=== PATIENT | female | born 1960 | race Hispanic/Latino ===

== ENCOUNTER 2017-08-04 21:02 | Emergency (ER) | payer OTHER ==
--- OUTSIDE RECORDS SUMMARY | 2017-08-04 21:04 | XMS REPORT ---
:1960 Author Organization [employer] Care Team Providers Name Role Phone Rangel, Na Provider Role Unavailable Allergies, Adverse Reactions, Alerts Substance Reaction Event Type Lisinopril Info Not Available Drug Allergy Problems Problem Type Condition Code Onset Dates Condition Status Problem Obstructive sleep apnea G47.33 Active Problem Obese E66.9 Active Problem Depression with anxiety F41.8 Active Problem Varicose veins of both legs with I83.893 Active edema Problem Balance problem R26.89 Active Problem Subclinical hypothyroidism E03.9 Active Problem Benign essential HTN I10 Active Problem Peripheral neuropathy G62.9 Active Problem Hyperlipidemia E78.5 Active Problem Vitamin B12 deficiency E53.8 Active Assessment Seasonal allergic rhinitis, J30.2 Active unspecified trigger Problem Fibrocystic breast disease N60.19 Active Problem Primary insomnia F51.01 Active Assessment Subclinical hypothyroidism E03.9 Active Problem Allergic rhinitis, seasonal J30.2 Active Assessment Acute bronchitis, unspecified J20.9 Active organism Problem Chronic back pain M54.9 Active Medications Medication Code Code Instructions Start End Date Status Dosage System Date Albuterol [facility] 92484305653 108 (90 Base) July Active 2 puffs as Sulfate MCG/ACT 2017 needed Inhalation every 6 hrs as needed for sob Aspirin Adult [facility] 54441730056 81 MG Orally Active 1 tablet Low Dose Once a day Flonase [facility] 82824673551 50 MCG/ACT July Active 2 spray in Nasally Once a 2017 each day nostril Voltaren [facility] 24190034053 1 % Transdermal Active not defined Cetirizine HCl ND 17219856868 10 MG Orally JulyOctober 17, Active 1 tablet Once a day 2017 Ultram [facility] 38725246053 50 MG Orally Active 1 tablet every 6 hrs as needed Coreg [facility] 15006739847 12.5 MG Orally Active 1 tablet twice a day Cozaar [facility] 69108731386 50 MG Orally Active 1 tablet Once a day Singulair [facility] 13579239788 10 MG Orally Active 1 tablet Once a day in the evening Nasonex [facility] 43230258088 50 MCG/ACT Active 2 sprays Nasally Once a in each day nostril Augmentin [facility] 90438202539 875-125 MG July Active 1 tablet Orally every 12 2017 hrs Vitamin D [facility] 30562947968 47804 UNIT Active 1 capsule (Ergocalciferol) Orally Celexa [facility] 22934445912 10 MG Orally Active 1 tablet Once a day Levothyroxine [facility] 62714210466 50 MCG Orally July Active 1 tablet Sodium Once a day 2017 on an empty stomach in the morning Zyrtec Allergy [facility] 11832777804 10 MG Orally Active 1 tablet Once a day ProAir HFA [facility] 55378436554 108 (90 Base) Active 2 puffs as MCG/ACT needed Inhalation every 6 hrs Results No Known Results Summary Purpose eClinicalWorks Submission
[2017-08-04] MEDS ORDERED: NA CHLORIDE 0.9% 1,000 ML ONE (22:23)
[2017-08-04 22:29] LABS: Absolute Lymphocytes (CBC) 2.3 K/uL (0.7-4.9); Absolute Monocytes 0.7 K/uL (0.1-1.3); Absolute Neutrophil 8.7 K/uL (1.8-8.0); Basophils % 0.6 % (0-1.3); Eosinophils % 0.6 % (0-4.4); Hematocrit 42.3 % (36.0-45.0); Lymphocytes % 19.1 % (15.3-44.8); MCH 27.1 pg (27.0-35.0); MPV 9.3 fL (7.6-11.3); Monocytes % 6.2 % (3.3-12.3); RBC Red Blood Cell Count 4.92 M/uL (3.86-4.86)
[2017-08-04 22:41] LABS: Bicarbonate 27 mEq/L (21-31); Glucose Level 105 mg/dL (65-120); Potassium 3.7 mEq/L (3.6-5.0); Sodium Level 135 mEq/L (135-145)
[2017-08-04 22:42] LABS: BUN Blood Urea Nitrogen 11 mg/dL (6-20)
[2017-08-04 23:19] LABS: Urine Bacteria NONE SEEN /HPF (<20); Urine Culture Reflex Order REFLEXED; Urine RBC TNTC /HPF (NONE SEEN)
[2017-08-05] MEDS ORDERED: CEFTRIAXONE 1000 MG/VIAL ONE (00:17)
--- NOTE | 2017-08-05 00:18 | EDPHYS ---
Physician Documentation [facility] Name: Kayla Bermudez Age: 56 yrs Sex: Female : 1960 Arrival Date: 08/04/2017 Time: 21:06 Bed 20 Private MD: ED Physician Jose Armando Daniels HPI: 08/04 22:26 This 56 yrs old Female presents to ER via Ambulatory with complaints of kb Urinary Problem, BLOOD IN URINE, Pain With Urination. 22:26 The patient presents with flank pain, on the left, urinary symptoms, dysuria, kb hematuria. Onset: The symptoms/episode began/occurred today. Modifying factors: The symptoms are alleviated by nothing, the symptoms are aggravated by urinating. Associated signs and symptoms: Pertinent positives: dysuria, hematuria. Severity of symptoms: At their worst the symptoms were moderate, in the emergency department the symptoms are unchanged. The patient has not experienced similar symptoms in the past. The patient has not recently seen a physician. Historical: - Allergies: 21:24 No Known Allergies; la1 - PMHx: 21:24 Hypertension; High Cholesterol; Hypothyroidism; la1 - Immunization history:: Adult Immunizations up to date. - Social history:: Smoking status: Patient/guardian denies using tobacco. ROS: 22:24 Constitutional: Negative for fever, chills, and weight loss, Cardiovascular: Negative kb for chest pain, palpitations, and edema, Respiratory: Negative for shortness of breath, cough, wheezing, and pleuritic chest pain, Abdomen/GI: Negative for abdominal pain, nausea, vomiting, diarrhea, and constipation, MS/Extremity: Negative for injury and deformity, Skin: Negative for injury, rash, and discoloration, Neuro: Negative for headache, weakness, numbness, tingling, and seizure. 22:24 : Positive for urinary symptoms, flank pain, hematuria, burning with urination. Exam: 22:24 Constitutional: This is a well developed, well nourished patient who is awake, alert, kb and in no acute distress. Head/Face: Normocephalic, atraumatic. Chest/axilla: Normal chest wall appearance and motion. Nontender with no deformity. No lesions are appreciated. Cardiovascular: Regular rate and rhythm with a normal S1 and S2. No gallops, murmurs, or rubs. Normal PMI, no JVD. No pulse deficits. Respiratory: Lungs have equal breath sounds bilaterally, clear to auscultation and percussion. No rales, rhonchi or wheezes noted. No increased work of breathing, no retractions or nasal flaring. Skin: Warm, dry with normal turgor. Normal color with no rashes, no lesions, and no evidence of cellulitis. MS/ Extremity: Pulses equal, no cyanosis. Neurovascular intact. Full, normal range of motion. Neuro: Awake and alert, GCS 15, oriented to person, place, time, and situation. Cranial nerves II-XII grossly intact. Motor strength 5/5 in all extremities. Sensory grossly intact. Cerebellar exam normal. Normal gait. 22:24 Abdomen/GI: Inspection: abdomen appears normal, Bowel sounds: normal, in all quadrants, Palpation: soft, in all quadrants, moderate abdominal tenderness, in the suprapubic area. 22:24 Back: CVA tenderness, that is mild, is noted on the left. Vital Signs: 21:24 BP 190 / 110; Pulse 78; Resp 16; Temp 98.6(TE); Pulse Ox 100% on R/A; Weight 108.86 kg; la1 Height 5 ft. 2 in. (157.48 cm); 23:04 BP 153 / 79; Pulse 74; Resp 16; Pulse Ox 100% on R/A; ao 08/05 00:38 BP 159 / 72; Pulse 76; Resp 16; Pulse Ox 99% on R/A; ao 08/04 21:24 Body Mass Index 43.90 (108.86 kg, 157.48 cm) la1 MDM: 08/04 22:00 Patient medically screened. 22:24 Data reviewed: vital signs, nurses notes. Data interpreted: Pulse oximetry: on room air kb is 100 %. Interpretation: normal. 08/05 00:11 Data reviewed: I have discussed the patient's presentation/case with the attending Emergency Department Physician;. Counseling: I had a detailed discussion with the patient and/or guardian regarding: the historical points, exam findings, and any diagnostic results supporting the discharge/admit diagnosis, lab results, radiology results, the need for outpatient follow up, a family practitioner, a urologist, to return to the emergency department if symptoms worsen or persist or if there are any questions or concerns that arise at home. 04/22 21:33 Order name: Urine Microscopic Only; Complete Time: 23:20 kb 08/04 22:15 Order name: CBC with Diff; Complete Time: 22:43 kb 08/04 22:15 Order name: Basic Metabolic Panel; Complete Time: 22:43 kb 08/04 22:43 Order name: CT Abd/Pelvis - W/Contrast kb 08/04 23:21 Order name: Urine Culture EDMS 08/04 21:33 Order name: Urine Dipstick-Ancillary (obtain specimen); Complete Time: 00:40 kb 08/04 22:15 Order name: IV Start; Complete Time: 22:18 kb Administered Medications: 08/04 22:50 Drug: NS 0.9% 1000 ml Route: IV; Rate: 1000 ml; Site: right antecubital; ao 08/05 00:39 Follow up: IV Status: Completed infusion ao 00:40 Drug: Rocephin - (cefTRIAXone) 1 grams Route: IVPB; Infused Over: 30 mins; Site: right ao antecubital; 00:40 Follow up: Response: Medication administered at discharge.; IV Status: Completed ao infusion Disposition: 03:14 Co-signature as Attending Physician, Jose Armando Daniels MD I agree with the assessment and tw4 plan of care. Disposition: 08/05/17 00:17 Discharged to Home. Impression: Cystitis, unspecified with hematuria. - Condition is Stable. - Discharge Instructions: Urinary Tract Infection, [id number]. - Prescriptions for Cipro 500 mg Oral Tablet - take 1 tablet by ORAL route every 12 hours for 10 days; 20 tablet. - Medication Reconciliation Form, Thank You Letter, Antibiotic Education, Prescription Opioid Use form. - Follow up: Emergency Department; When: As needed; Reason: Worsening of condition. Follow up: Private Physician; When: 2 - 3 days; Reason: Recheck today's complaints, Continuance of care, Re-evaluation by your physician. Signatures: Dispatcher [employer] Hope Chambers FNP-C FNP-Maicol Duran RN RN la1 Keith Elias RN Jose Armando Alegria MD MD tw4
--- NOTE | 2017-08-05 00:18 | ER ---
Nurse's Notes [facility] Name: Kayla Bermudez Age: 56 yrs Sex: Female : 1960 Arrival Date: 08/04/2017 Time: 21:06 Bed 20 Private MD: Diagnosis: Cystitis, unspecified with hematuria Presentation: 08/04 21:23 Presenting complaint: Patient states: Lower abd pain and burning with urination la1 starting today. pt also has blood in urine. Transition of care: patient was not received from another setting of care. Onset of symptoms was August 04, 2017. Initial Sepsis Screen: Does the patient meet any 2 criteria? No. Patient's initial sepsis screen is negative. Does the patient have a suspected source of infection? No. Patient's initial sepsis screen is negative. Care prior to arrival: None. 21:23 Method Of Arrival: Ambulatory la1 21:23 Acuity: ERNRIQUE 3 la1 Historical: - Allergies: 21:24 No Known Allergies; la1 - PMHx: 21:24 Hypertension; High Cholesterol; Hypothyroidism; la1 - Immunization history:: Adult Immunizations up to date. - Social history:: Smoking status: Patient/guardian denies using tobacco. Screenin:20 Abuse screen: Denies threats or abuse. Denies injuries from another. Nutritional ao screening: No deficits noted. Tuberculosis screening: No symptoms or risk factors identified. Fall Risk None identified. Assessment: 22:18 General: Appears in no apparent distress. comfortable, Behavior is calm, cooperative, ao appropriate for age. Pain: Complains of pain in Back and abdoment Pain currently is 8 out of 10 on a pain scale. Neuro: Level of Consciousness is awake, alert, obeys commands, Oriented to person, place, time, situation, Appropriate for age Moves all extremities. Speech is normal, Facial symmetry appears normal. Cardiovascular: Capillary refill < 3 seconds Patient's skin is warm and dry. Respiratory: Airway is patent Respiratory effort is even, unlabored, Respiratory pattern is regular, symmetrical. GI: Abdomen is non-distended, Bowel sounds present X 4 quads. : Reports pain in lower back with urination, urinary frequency, Blood in the uirine. EENT: No signs and/or symptoms were reported regarding the EENT system. Derm: No signs and/or symptoms reported regarding the dermatologic system. Musculoskeletal: No signs and/or symptoms reported regarding the musculoskeletal system. 23:04 Reassessment: Patient appears in no apparent distress at this time. No changes from ao previously documented assessment. Patient and/or family updated on plan of care and expected duration. Pain level reassessed. Patient is alert, oriented x 3, equal unlabored respirations, skin warm/dry/pink. 08/05 00:07 Reassessment: Patient appears in no apparent distress at this time. Patient and/or ao family updated on plan of care and expected duration. Pain level reassessed. Patient is alert, oriented x 3, equal unlabored respirations, skin warm/dry/pink. Patient ambulated to the bathroom and stated that her urine looks much better with the fluids. 00:38 Reassessment: Dc Instructions given to patient. Patient understand to follow up with ao PCP and medications administration. Vital Signs: 08/04 21:24 BP 190 / 110; Pulse 78; Resp 16; Temp 98.6(TE); Pulse Ox 100% on R/A; Weight 108.86 kg; la1 Height 5 ft. 2 in. (157.48 cm); 23:04 BP 153 / 79; Pulse 74; Resp 16; Pulse Ox 100% on R/A; ao 08/05 00:38 BP 159 / 72; Pulse 76; Resp 16; Pulse Ox 99% on R/A; ao 08/04 21:24 Body Mass Index 43.90 (108.86 kg, 157.48 cm) la1 ED Course: 08/04 21:06 Patient arrived in ED. al2 21:15 Hope Kwong FNP-C is PHCP. kb 21:15 Jose Armando Daniels MD is Attending Physician. kb 21:24 Triage completed. la1 21:25 Arm band placed on right wrist. la1 22:00 Hope Kwong FNP-C is PHCP. kb 22:00 Jose Armando Daniels MD is Attending Physician. kb 22:02 Keith Elias, RUDDY is Primary Nurse. ao 22:21 Patient has correct armband on for positive identification. Pulse ox on. NIBP on. ao 23:23 CT Abd/Pelvis - W/Contrast In Process Unspecified. EDMS 23:30 Inserted saline lock: 20 gauge in right antecubital area, using aseptic technique. ao Blood collected. 08/05 00:37 No provider procedures requiring assistance completed. IV discontinued, intact, ao bleeding controlled, No redness/swelling at site. Pressure dressing applied. Administered Medications: 08/04 22:50 Drug: NS 0.9% 1000 ml Route: IV; Rate: 1000 ml; Site: right antecubital; ao 08/05 00:39 Follow up: IV Status: Completed infusion ao 00:40 Drug: Rocephin - (cefTRIAXone) 1 grams Route: IVPB; Infused Over: 30 mins; Site: right ao antecubital; 00:40 Follow up: Response: Medication administered at discharge.; IV Status: Completed ao infusion Outcome: 00:17 Discharge ordered by . trey 00:38 Discharged to home ambulatory. ao 00:38 Condition: stable 00:38 Discharge instructions given to patient, Instructed on discharge instructions, follow up and referral plans. Demonstrated understanding of instructions, follow-up care, medications, Prescriptions given X 1. 00:41 Patient left the ED. ao Addendum: 08/09/2017 11:44 Addendum: Culture Results: Positive urine culture. No further action required. Bacteria i w sensitive to prescribed antibiotic. Signatures: Dispatcher [employer] EDMS Hope Kwong, PROPERTY SUPERVISOR-C PROPERTY SUPERVISOR-CkSamara Martin, Maicol Azar RN, RN RN la1 Ortiz, Alex, RN RN ao Love, Angelica al2
[2017-08-05 00:50] VITALS: TEMP 98.6
[2017-08-05 00:52] VITALS: BP 159/72; O2SAT 99
--- NOTE | 2017-08-05 08:20 | RAD REPORT ---
EXAM DESCRIPTION: CT - Abdomen Pelvis W Contrast - 08/05/2017 6:57 am CLINICAL HISTORY: Abdominal pain/lower abdominal pain with hematuria and dysuria COMPARISON: none. TECHNIQUE: Computed axial tomography of the abdomen pelvis was obtained. 100 cc Isovue-300 was admin istered intravenously. Oral contrast was not requested which limits evaluation of bowel. A preliminar y report was given by [email or web address] and reviewed prior to this dictation All CT scans are performed using dose optimization technique as appropriate and may include automated exposure control or mA/KV adjustment according to patient size. FINDINGS: The liver, spleen, pancreas, adrenal and kidneys appear unremarkable. The wall of the blad kathryn is thickened with stranding within the adjacent fat There is no evidence of diverticulitis. The appendix is normal. A periumbilical hernia contains fat. The neck measures 3 centimeters. IMPRESSION: The wall of the bladder is thickened with stranding within the adjacent fat probably ind icating cystitis Umbilical hernia
== END 2017-08-05 00:41 | disposition home or self-care (01) ==
LOC: ER 21:02
DX: N30.91 Cystitis, unspecified with hematuria (principal); I10 Essential (primary) hypertension
CPT/HCPCS: 36415; 74177; 80048; 81015; 85025; 87077; 87086; 87088; 87186; 96361; 96374; 99284; J7030; Q9967

== ENCOUNTER 2020-04-23 10:37 | Emergency (ER) | payer OTHER ==
--- OUTSIDE RECORDS SUMMARY | 2020-04-23 10:40 | XMS REPORT | Summary of Care ---
:1960 Author Organization [facility] Address [address] [place] [address] Care Team Providers Name Role Phone Yessy Rangel Regina Primary Care Provider Reason for Visit Reason Comments Follow-up 1mo Encounter Details Date Type Department Care Team Description 03/08/2020 Office Visit [facility] Mckenna Stinson M D Essential hypertension (Primary Dx); Cardiology- [address] PALOMO (dyspnea on exertion); [address] [place] [address] Morbid obesity; [facility], [address] Leg edema; [place], [place] [address] Snores [phone] Allergies No Known Allergiesdocumented as of this encounter (statuses as of 03/08/2020) Medications Medication Sig Dispensed Refills Start End Date Status Date telmisartan 80 mg Take 1 0 Ac tive tablet tablet by 0 mouth daily. carvediloL 25 mg Take 1 180 tablet 1 Ac tive tabletIndications: PALOMO tablet by 0 (dyspnea on exertion), mouth 2 Essential hypertension (two) times daily with meals. hydroCHLOROthiazide 25 Take 1 90 tablet 1 Active mg tabletIndications: tablet by 0 Essential hypertension mouth daily. hydroCHLOROthiazide 25 Take 1 30 tablet 1 0 Discontinued mg tabletIndications: tablet by 0 20 (Reorder) Essential hypertension mouth daily. carvediloL 25 mg Take 1 60 tablet 1 03/08/20 Dis continued tabletIndications: PALOMO tablet by 0 20 (Reorder) (dyspnea on exertion), mouth 2 Essential hypertension (two) times daily with meals. documented as of this encounter (statuses as of 03/08/2020) Active Problems Not on filedocumented as of this encounter (statuses as of 03/08/2020) Immunizations Name Administration Dates Next Due Influenza Virus Vaccine 12/15/2019 documented as of this encounter Social History Tobacco Use Types Packs/Day Years Used Date Never Smoker Smokeless Tobacco: Never Used Sex Assigned at Date Recorded Not on file COVID-19 Exposure Response Date Recorded In the last month, have you been in contact with No / Unsure 03/08/2020 8:21 AM DIRECTOR PROSPECT someone who was confirmed or suspected to have Coronavirus / COVID-19? documented as of this encounter Last Filed Vital Signs Vital Sign Reading Time Taken Comments Blood Pressure 158/92 03/08/2020 8:44 AM DIRECTOR PROSPECT Pulse 65 03/08/2020 8:41 AM DIRECTOR PROSPECT Temperature - - Respiratory Rate 19 03/08/2020 8:41 AM DIRECTOR PROSPECT Oxygen Saturation 100% 03/08/2020 8:41 AM DIRECTOR PROSPECT Inhaled Oxygen Concentration - - Weight 130.5 kg (287 lb 11.2 oz) 03/08/2020 8:41 AM DIRECTOR PROSPECT Height 160 cm (5' 3") 03/08/2020 8:41 AM DIRECTOR PROSPECT Body Mass Index 50.96 03/08/2020 8:41 AM DIRECTOR PROSPECT documented in this encounter Progress Notes Mckenna Stinson MD - 03/08/2020 8:40 AM CST CARDIOLOGY CLINIC NOTE 03/08/2020 Reason for Referral/Presenting Complaint: dyspnea, leg edema, dizziness PCP: Yessy Rangel History of Present Illness: Kayla Bermudez is a 59 years old female with history of morbid obesity, HTN, HLD, and thyroid disease etc. For the past 4 months she has been feeling SOB with activities such as walking. Noted leg edema as well. She has gained 40 lbs in the past several months. Chest pain episodes--left sided, burning or pressure, lasting minutes, associated with SOB, radiating to the left arm, worse with exertion. Had normal LHC about 5 years ago. C/o dizziness and vertigo. No syncope. Her BP is still elevated. Taking coreg 12.5 mg BID and telmisartan 80 mg daily. On crestor 10 mg daily. Likes salty food. Last visit we increased coreg to 25 mg BID. We added HCTZ 25 mg daily. Her BP has improved--mostly normal. Less SOB. Gained a few lbs. Cardiovascular testing: EK02/04/2020--reviewed by me Normal sinus rhythm. Non-specific ST-T abnormality ECHO 01/2020 Ejection Fraction = 60-65%. Diastolic function is pseudonormal. Left ventricular filling presure is normal. The left ventricular wall motion is normal. The left atrium is mildly dilated. Estimated RA pressure is 0-5 mmHg. Right ventricular systolic pressure is elevated at 30-35 mmHg. Carotid duplex 01/2020 Negative Review of Systems: General: (-) fever, (-) chills, (+) weight change, (+) dizziness, (+) fatigue Skin: (-) rash HEENT: (-) headache, (-) change in vision Neck: (-) difficulty swallowing Heme: negative Resp: (-) cough, (+) dyspnea on exertion Cardio: (+) chest pain, (-) palpitations, (-) syncope GI: (-) vomiting, (-) diarrhea : negative Endo: (-) diabetes, (-) thyroid disease Neuro: (-) numbness, (-) tingling, (+) weakness Back: (-) pain LAMBERTO: (-) muscle pain, (-) claudication Psych: (-) anxiety, (-) depression Past Medical History: No past medical history on file. Current Medications: Current Outpatient Medications Medication Sig Dispense Refill carvediloL 25 mg tablet Take 1 tablet by mouth 2 (two) times daily with meals. 180 tablet 1 hydroCHLOROthiazide 25 mg tablet Take 1 tablet by mouth daily. 90 tablet 1 telmisartan 80 mg tablet Take 1 tablet by mouth daily. No current facility-administered medications for this visit. Social History: Social History Socioeconomic History Marital status: Spouse name: Not on file Number of children: Not on file Years of education: Not on file Highest education level: Not on file Occupational History Not on file Social Needs Financial resource strain: Not on file Food insecurity Worry: Not on file Inability: Not on file Transportation needs Medical: Not on file Non-medical: Not on file Tobacco Use Smoking status: Never Smoker Smokeless tobacco: Never Used Substance and Sexual Activity Alcohol use: Not on file Drug use: Not on file Sexual activity: Not on file Lifestyle Physical activity Days per week: Not on file Minutes per session: Not on file Stress: Not on file Relationships Social connections Talks on phone: Not on file Gets together: Not on file Attends quaker service: Not on file Active member of club or organization: Not on file Attends meetings of clubs or organizations: Not on file Relationship status: Not on file Intimate partner violence Fear of current or ex partner: Not on file Emotionally abused: Not on file Physically abused: Not on file Forced sexual activity: Not on file Other Topics Concern Not on file Social History Narrative Not on file Family History Family History Problem Relation Age of Onset [place] (myocardial infarction) Mother 65 Physical Examination: BP (!) 158/92 | Pulse 65 | Resp 19 | Ht 5' 3" (1.6 m) | Wt 287 lb 11.2 oz (130.5 kg) | SpO2 100% | BMI 50.96 kg/m Constitutional: alert and oriented x 3 (person, place and date/time); no apparent distress, obese ENT: normocephalic atraumatic, supple, no lymphadenopathy, no bruits, no JVD Lungs: clear to auscultation bilaterally Cardiovascular: S1, S2 normal, regular; no murmurs, rubs or gallops GI: soft; non-tender; non-distended; normoactive bowel sounds : not examined Musculoskeletal: Extremities: no clubbing, cyanosis, + mild pitting edema Skin: no rashes Neuro: no focal deficits Assessment/Plan: ICD-10-CM ICD-9-CM 1. Essential hypertension I10 401.9 2. PALOMO (dyspnea on exertion) R06.00 786.09 3. Morbid obesity E66.01 278.01 4. Leg edema R60.0 782.3 5. Snores R06.83 786.09 PALOMO--multifactorial due to morbid obesity, weight gain, deconditioning, maybe diastolic dysfunction etc. ECHO showed diastolic dysfunction but without volume overload. Discussed extensively on weight loss. Chest pain--Atypical. Previous negative LHC. HTN--Now much better controlled. Will continue coreg at 25 mg BID. Will continue HCTZ 25 mg daily. Continue Telmisartan 80 mg daily. Discussed low salt diet, exercise and weight loss. Daily BP log. Will get BMP to assess K and Cr. Dizziness/imbalance--Negative carotid duplex. Leg edema--Multifactorial. Add HCTZ as above. Consider venous duplex to insufficiency study. Low salt. Again, discussed extensively on weight loss. Morbid obesity/snoring--she cannot lie flat. Cannot do a sleep study. Patient was counseled for lifestyle modifications including: diet, exercise and weight loss. RTC 3 months Mckenna Stinson MD, FACCWILI Chemist Assistant, Division of Cardiology [facility] documented in this encounter Plan of Treatment Date Type Specialty Care Team Description 03/08/2020 Senior Hr Manager Visit Phlebotomy Mckenna Stinson MD [address] [facility] [address] [place], [place] [address] PALOMO (dyspnea on 2, Adc Lab exertion) 06/06/2020 Office Visit Cardiology Mckenna Stinson M D [address] [facility] [address] [place], [place] [address] Name Type Priority Associated Diagnoses Order S chedule BASIC METABOLIC PANEL LAB Routine PALOMO (dyspnea on 1 O ccurrences starting (NA, K, CL, CO2, exertion) 03/08/2020 until GLUCOSE, BUN, 06/08/2020 CREATININE, CA) Health Maintenance Due Date Last Done Comments HEPATITIS C (HCV) SCREEN 1960 DTaP,Tdap,and Td Vaccines (1 - 1977 Tdap) PAP SMEAR 11/26/1979 Breast Cancer Screening 1998 (MAMMOGRAM) COLON CANCER SCREENING ANNUAL 2008 FIT/FOBT COLON CANCER SCREENING FIT DNA 2008 EVERY 3 YEARS COLON CANCER SCREENING 2008 SIGMOIDOSCOPY EVERY 5 YEARS COLONOSCOPY 2008 Colorectal Cancer Screening 2008 Zoster Recombinant Vaccine 2008 (SHINGRIX) (1 of 2) INFLUENZA VACCINE (#1) 2019 Depression Screening 03/08/2021 03/08/2020 PNEUMOCOCCAL 0-64 YEARS COMBINED Aged Out No longer eligible based on SERIES patient's age to complete this topic documented as of this encounter Results Not on filedocumented in this encounter Visit Diagnoses Diagnosis Essential hypertension - Primary Unspecified essential hypertension PALOMO (dyspnea on exertion) Other dyspnea and respiratory abnormalit y Morbid obesity Leg edema Edema Snores Other dyspnea and respiratory abnormalit y PALOMO (dyspnea on exertion) Other dyspnea and respiratory abnormalit y documented in this encounter Insurance Payer Benefit Plan / Subscriber ID Effective Dates Phone Addre ss Type Group [facility] [id number] 2019-Present Medicaid COMM PLAN - PLUS MANAGED MEDICAID documented as of this encounter
--- OUTSIDE RECORDS SUMMARY | 2020-04-23 10:40 | XMS REPORT | Summary of Care ---
:1960 Author Organization [facility] Address [address] [place] [address] Care Team Providers Name Role Phone Yessy Rangel Primary Care Provider Reason for Visit Reason Comments ULTRASOUND (Routine) Status Reason Specialty Diagnoses / Referred By Referred To Procedures Contact Contact New Request Diagnoses Imbalance Dizzy Mckenna Stinson MD Procedures CAROTID DUPLEX BILATERAL BY VASCULAR LAB [address] [facility] [address] [place], [place] [address] Encounter Details Date Type Department Care Team Description 02/08/2020 Literature Teacher Visit [facility] Cardiology- Arsenio Flores MD [address] [place] [address] Imbalance; [facility], Adc Vascular Room 1 - Dizzy [address] [place] [address], [address] [place] [address] Allergies No Known Allergiesdocumented as of this encounter (statuses as of 02/08/2020) Medications Medication Sig Dispensed Refills Start Date End Date Status hydroCHLOROthiazide 25 mg Take 1 tablet 30 tablet 1 02/04/2020 Active tabletIndications: by mouth Essential hypertension daily. carvediloL 25 mg Take 1 tablet 60 tablet 1 02/04/2020 Active tabletIndications: PALOMO by mouth 2 (dyspnea on exertion), (two) times Essential hypertension daily with meals. documented as of this encounter (statuses as of 02/08/2020) Active Problems Not on filedocumented as of this encounter (statuses as of 02/08/2020) Social History Tobacco Use Types Packs/Day Years Used Date Never Smoker Smokeless Tobacco: Never Used Sex Assigned at Date Recorded Not on file COVID-19 Exposure Response Date Recorded In the last month, have you been in contact with No / Unsure 02/08/2020 1:47 PM CDT someone who was confirmed or suspected to have Coronavirus / COVID-19? documented as of this encounter Last Filed Vital Signs Not on filedocumented in this encounter Plan of Treatment Date Type Specialty Care Team Description 03/08/2020 Office Visit Cardiology Mckenna Stinson M D [address] [place] [address] [place] [address] [phone] Health Maintenance Due Date Last Done Comments HEPATITIS C (HCV) SCREEN 1960 Depression Screening 1970 DTaP,Tdap,and Td Vaccines (1 - 1977 Tdap) PAP SMEAR 11/26/1979 Breast Cancer Screening (MAMMOGRAM) 1998 COLON CANCER SCREENING ANNUAL 2008 FIT/FOBT COLON CANCER SCREENING FIT DNA 2008 EVERY 3 YEARS COLON CANCER SCREENING 2008 SIGMOIDOSCOPY EVERY 5 YEARS COLONOSCOPY 2008 Colorectal Cancer Screening 2008 Zoster Recombinant Vaccine 2008 (SHINGRIX) (1 of 2) INFLUENZA VACCINE (#1) 2019 PNEUMOCOCCAL 0-64 YEARS COMBINED Aged Out No longer eligible based on SERIES patient's age to complete this topic documented as of this encounter Results Not on filedocumented in this encounter Visit Diagnoses Diagnosis Imbalance Abnormality of gait Dizzy Dizziness and giddiness documented in this encounter Insurance Payer Benefit Plan / Subscriber ID Effective Dates Phone Addre ss Type Group [facility] STAR [id number] 2019-Present Medicaid COMM PLAN - PLUS MANAGED MEDICAID documented as of this encounter
--- OUTSIDE RECORDS SUMMARY | 2020-04-23 10:40 | XMS REPORT | Summary of Care ---
:1960 Author Organization [facility] - Health Address [address] [place] [address] Care Team Providers Name Role Phone Pcp, Patient Does Not Have A Primary Care Provider +[id number] Encounter Details Date Type Department Care Team Description 02/04/2020 Orders Only [facility] Doctor Unassigned, No [address] [facility] [place] [address] [address] [place] [address] Allergies Not on Filedocumented as of this encounter (statuses as of 02/04/2020) Medications Not on filedocumented as of this encounter (statuses as of 02/04/2020) Active Problems Not on filedocumented as of this encounter (statuses as of 02/04/2020) Social History Tobacco Use Types Packs/Day Years Used Date Never Assessed Sex Assigned at Date Recorded Not on file documented as of this encounter Last Filed Vital Signs Not on filedocumented in this encounter Plan of Treatment Date Type Specialty Care Team Description 02/04/2020 Office Visit Cardiology Mckenna Stinson M D [address] [place] [address] [phone] Health Maintenance Due Date Last Done Comments [...] this topic documented as of this encounter Procedures Procedure Name Priority Date/Time Associated Diagnosis Comme nts CONSENT/REFUSAL FOR Routine 02/04/2020 10:25 AM DIAGNOSIS AND TREATMENT CDT ASSIGNMENT OF BENEFITS Routine 02/04/2020 10:25 AM CDT documented in this encounter Results Not on filedocumented in this encounter Insurance Payer Benefit Plan / Subscriber ID Effective Dates Phone Addre ss Type Group [facility] STAR [id number] 2019-Present Medicaid COMM PLAN - PLUS MANAGED MEDICAID documented as of this encounter
--- OUTSIDE RECORDS SUMMARY | 2020-04-23 10:40 | XMS REPORT | Summary of Care ---
:1960 Author Organization [facility] Address [address] [place] [address] Care Team Providers Name Role Phone Yessy Rangel Primary Care Provider Reason for Referral (Routine) Status Reason Specialty Diagnoses / Referred By Referred To Procedures Contact Contact New Request Diagnoses Imbalance Dizzy Mckenna Stinson MD Procedures CAROTID DUPLEX BILATERAL BY VASCULAR LAB [address] [place] [address] [address] [place], [place] [address] (Routine) Status Reason Specialty Diagnoses / Referred By Referred To Procedures Contact Contact New Request Cardiology Diagnoses PALOMO (dyspnea on exertion) Mckenna Stinson MD Procedures ECHO ROUTINE W/DOPPLER COLOR Preferred Location: [address] [place], [place] [address] Reason for Visit Reason Comments New Patient Establish Care Ekg Done today in office (Routine) Status Reason Specialty Diagnoses / Procedures Referred By R eferred To Contact Contact Closed Cardiology Diagnoses Dyspnea, unspecified Essential (primary) hypertension Encounter for screening for cardiovascular disorders Yessy Rangel Procedures CONSULT/REFERRAL CARDIOLOGY [address] [place] [address] Encounter Details Date Type Department Care Team Description 02/04/2020 Office Visit [facility] Mckenna Stisnon M D PALOMO (dyspnea on exertion) (Primary Dx); Cardiology- [address] Imbalance; [facility]; [facility], [address] Essential hypertension; [place], [place] [address] Leg edema; [phone] Morbid obesity; [phone] Snores Allergies No Known Allergiesdocumented as of this encounter (statuses as of 02/04/2020) Medications Medication Sig Dispensed Refills Start Date [...] been in contact with No / Unsure 02/04/2020 10:46 AM CDT someone who was confirmed or suspected to have Coronavirus / COVID-19? documented as of this encounter Last Filed Vital Signs Vital Sign Reading Time Taken Comments Blood Pressure 177/93 02/04/2020 10:59 AM CDT Pulse 93 02/04/2020 10:59 AM CDT Temperature - - Respiratory Rate 19 02/04/2020 10:54 AM CDT Oxygen Saturation 97% 02/04/2020 10:54 AM CDT Inhaled Oxygen Concentration - - Weight 127.9 kg (281 lb 14.4 oz) 02/04/2020 10:54 AM CDT Height 160 cm (5' 3") 02/04/2020 10:54 AM CDT Body Mass Index 49.94 02/04/2020 10:54 AM CDT documented in this encounter Patient Instructions Patient InstructionsMckenna Stinson MD - 02/04/2020 10:40 AM CDTIncrease carvedilol to 25 mg 2 times a day Add HCTZ 25 mg daily Very low salt diet documented in this encounter Progress Notes Mckenna Stinson MD - 02/04/2020 10:40 AM CDT CARDIOLOGY CLINIC NOTE 02/04/2020 Reason for Referral/Presenting Complaint: dyspnea, leg edema, [...] crestor 10 mg daily. Likes salty food. Cardiovascular testing: EK02/04/2020--reviewed by me Normal sinus rhythm. Non-specific ST-T abnormality Review of Systems: General: (-) fever, (-) chills, (-) weight change, (+) dizziness, (+) fatigue Skin: [...] mouth 2 (two) times daily with meals. 60 tablet 1 hydroCHLOROthiazide 25 mg tablet Take 1 tablet by mouth daily. 30 tablet 1 No current facility-administered medications for this visit. [...] file Gets together: Not on file Attends pentecostalism service: Not on file Active member of [...] Family History Problem Relation Age of Onset [place] (myocardial infarction) Mother 65 Physical Examination: BP (!) 177/93 | Pulse 93 | Resp 19 | Ht 5' 3" (1.6 m) | Wt 281 lb 14.4 oz (127.9 kg) | SpO2 97% | BMI 49.94 kg/m Constitutional: alert and oriented x 3 [...] no focal deficits Assessment/Plan: ICD-10-CM ICD-9-CM 1. PALOMO (dyspnea on exertion) R06.00 786.09 2. Imbalance R26.89 781.2 3. Dizzy R42 780.4 4. Essential hypertension I10 401.9 5. Leg edema R60.0 782.3 6. Morbid obesity E66.01 278.01 7. Snores R06.83 786.09 PALOMO--multifactorial due to morbid obesity, weight gain, deconditioning, maybe diastolic dysfunction etc. Will get ECHO to assess structural heart disease. Chest pain--Atypical. Previous negative LHC. Consider repeating stress test. HTN--Elevated. Will increase coreg to 25 mg BID. Will add HCTZ 25 mg daily. Continue Telmisartan 80 mg daily. Discussed low salt diet, exercise and weight loss. Daily BP log. Dizziness/imbalance--Will get a carotid duplex to assess stenosis. Leg edema--Multifactorial. ECHO as above. Add HCTZ as above. Consider venous duplex to insufficiencystudy. Low salt. Morbid obesity/snoring--she cannot lie flat. Cannot do a sleep study. Patient was counseled for lifestyle modifications including: diet, exercise and weight loss. RTC 1 month Thank you for allowing us to participate in the care of your patient. Please feel free to contact usfor any questions or if we can be of further assistance. Mckenna Stinson MD, [facility], WILI Ticket Machine Operator, Division of Cardiology [facility] documented in this encounter Plan of Treatment Date Type Specialty Care Team Description 02/04/2020 Laboratory Only Cardiology Mckenna Stinson M D [address] [address] [phone] Pc, Adc Echo Room 1 - 02/08/2020 Ct Scan Technologist Visit Cardiology Pc, Adc Vascular Room 1 - 03/08/2020 Office Visit Cardiology Mckenna Stinson M D [address] [address] [phone] Name Type Priority Associated Diagnoses Order S chedule EKG-12 LEAD ROUTINE HEART STATION Routine PALOMO (dyspnea on Orde red: 02/04/2020 exertion) Health Maintenance Due Date Last Done Comments [...] filedocumented in this encounter Visit Diagnoses Diagnosis PALOMO (dyspnea on exertion) - Primary Other dyspnea and respiratory abnormalit y Imbalance Abnormality of gait Dizzy Dizziness and giddiness Essential hypertension Unspecified essential hypertension Leg edema Edema Morbid obesity Snores Other dyspnea and respiratory abnormalit y documented in this encounter Insurance Payer Benefit Plan / Subscriber ID Effective Dates Phone Addre ss Type Group [facility] STAR [id number] 2019-Present Medicaid COMM PLAN - PLUS MANAGED MEDICAID documented as of this encounter
--- OUTSIDE RECORDS SUMMARY | 2020-04-23 10:40 | XMS REPORT | Summary of Care ---
:[address] [facility] Address [address] [place] [address] Care Team Providers Name Role Phone Yessy Rangel Primary Care Provider Reason for Visit (Routine) Status Reason Specialty Diagnoses / Procedures Referred By Blane bishop Referred To Contact Closed Cardiology Diagnoses PALOMO (dyspnea on exertion) Mckenna Stinson MD Procedures ECHO ROUTINE W/DOPPLER COLOR Preferred Location: [facility] [address] [facility] [address] [place], [place] [address] Phone: Encounter Details Date Type Department Care Team Description 02/04/2020 Laboratory Only [facility] Mckenna Stinson M D [address] [place] [address] [address] [place] [address] PALOMO (dyspnea on [facility]iology- [facility], Adc Echo Room 1 - exertion) 146 [facility], [address] [place] [address] Allergies No Known Allergiesdocumented as of this [...] Sign Reading Time Taken Comments Blood Pressure 149/88 02/04/2020 2:05 PM CDT Pulse 73 02/04/2020 2:05 PM CDT Temperature - - Respiratory Rate - - Oxygen Saturation - - Inhaled Oxygen Concentration - - Weight 127.5 kg (281 lb) 02/04/2020 2:05 PM CDT Height 160 cm (5' 3") 02/04/2020 2:05 PM CDT Body Mass Index 49.78 02/04/2020 2:05 PM CDT documented in this encounter Plan of Treatment Date Type Specialty Care Team Description 02/08/2020 Outlet Manager Visit Cardiology Pc, Adc Vascular Room 1 - 03/08/2020 Office Visit Cardiology Mckenna Stinson M D [address] [place] [address] [phone] Health Maintenance Due Date Last Done Comments [...] Visit Diagnoses Diagnosis PALOMO (dyspnea on exertion) Other dyspnea and respiratory abnormalit y documented in this encounter Insurance Payer Benefit Plan / Subscriber ID Effective Dates Phone Addre ss [facility] [id number] 2019-Present Medicaid COMM PLAN - PLUS MANAGED MEDICAID documented as of this encounter
--- OUTSIDE RECORDS SUMMARY | 2020-04-23 10:40 | XMS REPORT | Summary of Care ---
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 carvediloL 25 mg Take 1 tablet 180 tablet 1 03/08/2020 Active tabletIndications: PALOMO by mouth 2 (dyspnea on exertion), (two) times Essential hypertension daily with meals. hydroCHLOROthiazide 25 mg Take 1 tablet 90 tablet 1 03/08/2020 Active tabletIndications: by mouth Essential hypertension daily. 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 documented as of this encounter Last Filed Vital Signs Not on filedocumented in this encounter Nursing Notes Paula Oglesby - 03/08/2020 9:45 AM CST Venipuncture collection performed by clean technique on the right anticubitus. Total of 1 attempts were made. Slight pressure and a bandage/dressing were applied to the site(s). The patient experiencedno complications. The following specimens were processed according to instructions and sent to [facility] laboratories per lab order on 03/08/20: LT BLUE SST 1 RED LAV PPT DK GREEN (LiHep) DK GREEN (SodH) MCKINLEY DK BLUE (K2) DK BLUE (S) ACD Blood Culture NIPT/NTD documented in this encounter Plan of Treatment Date Type Specialty Care Team Description 06/06/2020 Office Visit Cardiology Mckenna Stinson M D [address] [address] [phone] Health Maintenance Due Date Last Done Comments [...] Effective Dates Phone Addre ss Type Group [facility] [id number] 2019-Present Medicaid COMM PLAN - PLUS MANAGED MEDICAID documented as of this encounter
--- OUTSIDE RECORDS SUMMARY | 2020-04-23 10:40 | XMS REPORT | Summary of Care ---
:1960 Author Organization [facility] Address [address] [place] [address] Care Team Providers Name Role Phone Yessy Rangel Primary Care Provider Reason for Visit Reason Comments Results Encounter Details Date Type Department Care Team Description 02/09/2020 Telephone [facility] Cardiology, Cassius Stinson MD Results [address], [facility] [address] [place] [address] [place] [address] [phone] Allergies No Known Allergiesdocumented as of this encounter (statuses as of 02/11/2020) Medications Medication Sig Dispensed Refills Start Date End Date Status hydroCHLOROthiazide 25 mg Take 1 tablet 30 tablet 1 02/04/2020 Active tabletIndications: by mouth Essential hypertension daily. carvediloL 25 mg Take 1 tablet 60 tablet 1 02/04/2020 Active tabletIndications: PALOMO by mouth 2 (dyspnea on exertion), (two) times Essential hypertension daily with meals. documented as of this encounter (statuses as of 02/11/2020) Active Problems Not on filedocumented as of this encounter (statuses as of 02/11/2020) Social History Tobacco Use Types Packs/Day Years [...] Signs Not on filedocumented in this encounter Miscellaneous Notes Telephone Encounter - Teodora Ho RN - 02/11/2020 3:41 PM CDTAttempted to contact patient regarding below results and recommendations. LVM to return call to clinic. Third attempted to contact patient. Letter sent. Closing encounter. Telephone Encounter - Teodora Ho RN - 02/10/2020 12:12 PM CDTAttempted to contact patient regarding below results and recommendations. LVM to return call to clinic. ECHO showed normal EF. Diastolic dysfunction. Continue current meds. Follow up as scheduled. Carotid ultrasound is normal. Follow up as scheduled. elephone Encounter - Mario White RN - 02/09/2020 11:41 AM CDT Attempted contact with patient. No answer. VM left to return call to clinic. Mckenna Stinson MD 02/08/2020 11:03 PM Carotid ultrasound is normal. Follow up as scheduled. documented in this encounter Plan of Treatment Date Type Specialty Care Team Description 03/08/2020 Office Visit Cardiology Mckenna Stinson M D [address] [place] [address] 15 [phone] Health Maintenance Due Date Last Done Comments [...] Effective Dates Phone Addre ss Type Group [facility] [id number] 2019-Present Medicaid COMM PLAN - PLUS MANAGED MEDICAID documented as of this encounter
--- OUTSIDE RECORDS SUMMARY | 2020-04-23 10:40 | XMS REPORT | Continuity of Care Document ---
:1960 Author Organization [facility] t Address [address] [place] [address] Care Team Providers Name Role Phone 2, Adc Lab Attending Clinician Unavailable Milad MANRIQUEZ Attending Clinician Problems This patient has no known problems. Allergies, Adverse Reactions, Alerts Allergy Allergy Status Severity Reaction(s) Onset Inactive Treating Comm ents Source Name Type Date Date Clinician Lisinopr Adverse Active Info Not [facility] Medications Ordered Filled Start Stop Current Ordering Indication Dosage Frequency Signature Comments Components Source Medication Medication Date Date Medication? Clinician (SIG) Name Name Yamile Ovalle Yes Na Rangel [address] [facility] 4[facility]06 each [facility] nostril [facility] Albuterol Albuterol Yes Na Rangel [address] [facility] Sulfate Sulfate 4-06 needed [facility] Levothyroxi Levothyroxi Yes Na Rangel [address] [facility] ne Sodium ne Sodium on an [facility] - empty [facility] stomach in l the [facility] Cozaar Cozaar Yes Na Rangel [address] [facility] Nasonex Nasonex Yes Na Rangel [address] [facility] each [facility] nostril [facility] Telmisartan Telmisartan Yes Na Rangel [address] [facility] Zyrtec Zyrtec Yes Na Rangel [address] [facility] Allergy Allergy [facility] ProAir HFA ProAir HFA Yes Na Rangel [address] [facility] needed [facility] Celexa Celexa Yes Na Rangel [address] [facility] Vitamin D Vitamin D Yes Na Rangel [address] [facility] (Ergocalcif (Ergocalcif L ukes - bruna) bruna) [facility] Singulair Singulair Yes Na Rangel [address] [facility] in the [facility] Gabapentin Gabapentin Yes Na Rangel [address] [facility] Cipro Cipro Yes Na Rangel [address] [facility] Fosamax Fosamax Yes Na Rangel [address] [facility] Aspirin Aspirin Yes Na Rangel [address] Adult Low Adult Low [facility] Dose Dose [facility] Voltaren Voltaren Yes Na Rangel not [facility] defined [facility] Coreg Coreg Yes Na Rangel [address] [facility] Ultram Ultram Yes Na Rangel [address] [facility] as [facility] Procedures This patient has no known procedures. Encounters Start End Encounter Admission Attending Care Care Encounter Source Date/Time Date/Time Type Type Clinicians Facility Department ID 2020-03-16 2020-03-16 Outpatient [facility] [id number] [facility] 2020-03-08 2020-03-08 Electrical Technician 2, Adc Lab [place] [id number] 09:14:19 09:29:19 Visit Francisco [id number] Kaylie [id number] [place] [phone] [address] 2020-03-08 2020-03-08 Office [place] [id number] 08:21:54 09:05:28 Visit Mckenna Singh [id number] [place] [id number] Professio [phone] nal 9 [facility] 2020-03-08 2020-03-08 Telephone Milad TXNAIF [id number] 00:00:00 00:00:00 Mckenna [place] [id number] [place] [id number] Professio [phone] [facility] 2020-01-13 2020-01-13 [facility] [id number] [facility] 2020-01-11 2020-01-11 [facility] [id number] [facility] 2020-01-07 2020-01-[facility] [id number] [facility] 2019-07-21 2019-07-21 [facility] [id number] 13:39:00 13:39:00 t [place] [employer] s - Drive [facility] l Medicine Outpati ent Clinics 2019-07-06 2019-07-06 [facility] [id number] 16:55:00 16:55:00 t [place] [employer] s - Drive [facility] Medicine Outpati ent Clinics 2019-06-30 2019-06-30 [facility] [id number] 09:00:00 09:00:00 t [place] [employer] [employer] s - Drive [facility] Medicine Outpati ent Clinics 2019-03-02 2019-03-02 [facility] [id number] 08:40:00 08:40:00 t [place] [employer] s - Drive [facility] l Medicine Outpati ent Clinics 2018-11-28 2018-11-28 [facility] [id number] 09:20:00 09:20:00 t [place] [employer] s - Drive [facility] Medicine l Medicine Outpati ent Clinics 2018-06-03 2018-06-03 [facility] [id number] 08:15:00 08:15:00 t [place] Arg[employer] Luke s - Drive [facility] Medicine Outpati ent Clinics 2018-05-14 2018-05-14 [facility] [id number] 12:12:00 12:12:00 t Arg[place] [employer] s - Drive [facility] l Medicine Outpati ent Clinics 2018-03-03 2018-03-03 [facility] [id number] 08:15:00 08:15:00 t [place] [employer] s - Drive [facility] Medicine Outpati ent Clinics 2018-01-27 2018-01-27 [facility] [id number] 15:00:00 15:00:00 t [place] [employer] s - Drive [facility] l Medicine Outpati ent Clinics 2018-01-14 2018-01-14 [facility] [id number] 16:30:00 16:30:00 t [place] [employer] s - Drive [facility] Medicine Outpati ent Clinics 2017-09-05 2017-09-05 [facility] [id number] 14:30:00 14:30:00 t [place] [employer] s - Drive [facility] Medicine Outpati ent Clinics 2017-08-08 2017-08-08 [facility] [id number] 13:45:00 13:45:00 t [place] [employer] s - Drive [facility] Medicine Outpati ent Clinics 2017-08-06 2017-08-06 [facility] [id number] 16:14:00 16:14:00 t [place] [employer] s - Drive [facility] Medicine Outpati ent Clinics 2017-07-19 2017-07-19 [facility] [id number] 11:30:00 11:30:00 t [employer] s - Drive [facility] Medicine Outpati ent Clinics Results This patient has no known results.
--- OUTSIDE RECORDS SUMMARY | 2020-04-23 10:40 | XMS REPORT | Summary of Care ---
:1960 Author Organization [facility] Address [address] [place] [address] Care Team Providers Name Role Phone Yessy Rangel Primary Care Provider Reason for Referral (Routine) Status Reason Specialty Diagnoses / Referred By Referred To Procedures Contact Contact New Request Diagnoses Imbalance Dizzy Mckenna Stinson MD Procedures CAROTID DUPLEX BILATERAL BY VASCULAR LAB [address] [place] [address] [address] [place], [place] [address] (Routine) Status Reason Specialty Diagnoses / Referred By Referred To Procedures Contact Contact New Request Cardiology Diagnoses PALOMO (dyspnea on exertion) Mckenna Stinson MD Procedures ECHO ROUTINE W/DOPPLER COLOR Preferred Location: [address] [place], [place] [address] Reason for Visit Reason Comments New Patient Establish Care Ekg Done today in office (Routine) Status Reason Specialty Diagnoses / Procedures Referred By R eferred To Contact Contact Closed Cardiology Diagnoses Dyspnea, unspecified Essential (primary) hypertension Encounter for screening for cardiovascular disorders Yessy Rangel Procedures CONSULT/REFERRAL CARDIOLOGY [address] [place] [address] Encounter Details Date Type Department Care Team Description 02/04/2020 Office Visit [facility] Mckenna Stinson M D PALOMO (dyspnea on exertion) (Primary Dx); Cardiology- [address] Imbalance; [facility]; [facility], [address] Essential hypertension; [place], [place] [address] Leg edema; [address] Morbid obesity; [phone] Snores Allergies No Known Allergiesdocumented as of [...] file Gets together: Not on file Attends temple service: Not on file Active member of [...] Family History Problem Relation Age of Onset [place] (myocardial infarction) Mother 65 Physical Examination: BP [...] be of further assistance. Mckenna Stinson MD, [facility] [employer] [place], Division of Cardiology [facility] documented in this encounter Plan of Treatment Date Type Specialty Care Team Description 02/04/2020 Laboratory Only Cardiology Mckenna Stinson M D [address] [address] [phone] Pc, Adc Echo Room 1 - 02/08/2020 Dehydrator Operator Visit Cardiology Pc, Adc Vascular Room 1 - 03/08/2020 Office Visit Cardiology Mckenna Stinson M D [address] [address] [phone] Name Type Priority Associated Diagnoses Order S [...] Effective Dates Phone Addre ss Type Group [facility] [id number] 2019-Present Medicaid COMM PLAN - PLUS MANAGED MEDICAID documented as of this encounter
--- OUTSIDE RECORDS SUMMARY | 2020-04-23 10:40 | XMS REPORT | Summary of Care ---
:1960 Author Organization [facility] Address [address] [place] [address] Care Team Providers Name Role Phone Yessy Rangel Regina Primary Care Provider Reason for Visit Reason Comments Follow-up 1mo Encounter Details Date Type Department Care Team Description 03/08/2020 Office Visit [facility] Mckenna Stinson M D Essential hypertension (Primary Dx); Cardiology- [address] PALOMO (dyspnea on exertion); [address] [place] [address] Morbid obesity; [facility], [address] Leg edema; [place], [place] [address] Snores [phone] Allergies No Known Allergiesdocumented as of this [...] with No / Unsure 03/08/2020 8:21 AM 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 documented as of this encounter Last Filed Vital Signs Vital Sign Reading Time Taken Comments Blood Pressure 158/92 03/08/2020 8:44 AM HIGH LEAD YARDER Pulse 65 03/08/2020 8:41 AM HIGH LEAD YARDER Temperature - - Respiratory Rate 19 03/08/2020 8:41 AM HIGH LEAD YARDER Oxygen Saturation 100% 03/08/2020 8:41 AM HIGH LEAD YARDER Inhaled Oxygen Concentration - - Weight 130.5 kg (287 lb 11.2 oz) 03/08/2020 8:41 AM HIGH LEAD YARDER Height 160 cm (5' 3") 03/08/2020 8:41 AM HIGH LEAD YARDER Body Mass Index 50.96 03/08/2020 8:41 AM HIGH LEAD YARDER documented in this encounter Progress Notes Mckenna [...] file Gets together: Not on file Attends confucianist service: Not on file Active member of [...] Family History Problem Relation Age of Onset [place] (myocardial infarction) Mother 65 Physical Examination: BP [...] RTC 3 months Mckenna Stinson MD, FACCWILI Cardiac Surgeon, Division of Cardiology [facility] documented in this encounter Plan of Treatment Date Type Specialty Care Team Description 03/08/2020 Helpdesk Analyst Visit Phlebotomy Mckenna Stinson MD [address] [facility] [address] [place], [place] [address] PALOMO (dyspnea on 2, Adc Lab exertion) 06/06/2020 Office Visit Cardiology Mckenna Stinson M D [address] [facility] [address] [place], [place] [address] Name Type Priority Associated [...] Dates Phone Addre ss Type Group [facility] [id number] 2019-Present Medicaid COMM PLAN - PLUS MANAGED MEDICAID documented as of this encounter
--- OUTSIDE RECORDS SUMMARY | 2020-04-23 10:41 | XMS REPORT | Summary of Care ---
:1960 Author Organization [facility] Address [address] [place] [address] Care Team Providers Name Role Phone Yessy Rangel Primary Care Provider Reason for Visit Reason Comments Forms Encounter Details Date Type Department Care Team Description 03/08/2020 Telephone [facility] Cardiology- Cassius Stinson MD Forms [place] 146 [facility] [address] [facility], [address] [place] [address] [place] [address] [phone] Allergies No Known Allergiesdocumented as of this encounter (statuses as of 03/08/2020) Medications Medication Sig Dispensed Refills Start Date End Date Status telmisartan 80 mg tablet Take 1 tablet 0 03/08/2020 Active by mouth daily. 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 documented as of this encounter Last Filed Vital Signs Not on filedocumented in this encounter Miscellaneous Notes Telephone Encounter - Hawa Baeza RN - 03/08/2020 4:09 PM CST Faxed to PCP. Mckenna Stinson MD P Cardiology Nurse Plz fax my note and ECHO/carotid report to PCP CTOR CONSUMER documented in this encounter Plan of Treatment Date Type Specialty Care Team Description 06/06/2020 Office Visit Cardiology Mckenna Stinson M D [address] [place] [address] [phone] Health Maintenance Due Date Last Done Comments [...] Effective Dates Phone Addre ss Type Group [facility] [id number] 2019-Present Medicaid COMM PLAN - PLUS MANAGED MEDICAID documented as of this encounter
--- OUTSIDE RECORDS SUMMARY | 2020-04-23 10:41 | XMS REPORT ---
:1960 Author Organization [facility] Address [address] [place], [facility] [address] [place] [address] Care Team Providers Name Role Phone Yessy Rangel Unavailable [phone] PROBLEMS Type Condition ICD9-CM FQC36-SZ Onset Condition SNOMED Code Notes Code Code Dates Status Problem Vitamin B12 E53.8 Active 127395878 deficiency Problem Benign essential I10 Active 99785732 HTN Problem Allergic J30.2 Active 306329817 rhinitis, seasonal Problem Hyperlipidemia E78.5 Active 86558734 Problem Obstructive sleep G47.33 Active 15985640 apnea Problem Chronic back pain M54.9 Active 772754873 Problem Fibrocystic N60.19 Active 07448714 breast disease Problem Depression with F41.8 Active 004366758 anxiety Problem Varicose veins of I83.893 Active 87992210 both legs with edema Problem Subclinical E03.9 Active 53060998 hypothyroidism Problem Unspecified B96.20 Active 86512501 Escherichia coli [E. coli] as the cause of diseases classified elsewhere Problem Chronic K59.04 Active 96024635 Idiopathic Constipation Problem Balance problem R26.89 Active 938689967 Problem Obese E66.9 Active 459912130 Problem Hypertensive I16.0 Active 622790258 urgency Problem Primary insomnia F51.01 Active 0332304 Problem Peripheral G62.9 Active 285626322 neuropathy Problem Cystitis N30.90 Active 69518825 Problem Hematuria due to N30.01 Active [id number] acute cystitis Problem Osteoporosis of M81.8 Active 18294605 lumbar spine Problem Fibromyalgia M79.7 Active 917707051 ALLERGIES Allergen (clinical drug Drug/Non Drug Allergy Reaction Allergy Type Onset Date Status ingredient) documented on EMR lisinopril Lisinopril([facility] Unknown Drug Allergy Active Code:[address]-44) ENCOUNTERS from 1960 to 2020-03-19 Encounter Location Date Provider Diagnosis [facility] [address], Na Rangel Acute left-sided back [facility] [place] pain wit h sciatica [address] M54.42 IMMUNIZATIONS Vaccine Route Administration Date Status Afluria single dose IM Intramuscular Jan 07, 2020 Administere d Kenalog (Triamcinolone) IM Intramuscular July 19, 2017 Adminis tered SOCIAL HISTORY Tobacco Use: Social History Observation Description Date Details (start date - stop date) Never Smoker Sex Assigned At : Social History Observation Description Sex Assigned At Unknown PHQ9 Question Answer Notes Little interest or pleasure in doing More than half the days things Feeling down, depressed, or hopeless More than half the days Trouble falling or staying asleep or Several days sleeping too much Feeling tired or having little energy Several days Poor appetite or overeating More than half the days Feeling bad about yourself, or that you Several days are a failure, or have let yourself or your family down Trouble concentrating on things, such as More than half the days reading the newspaper or watching television Moving or speaking so slowly that other Not at all people could have noticed; or the opposite, being so fidgety or restless that you have been moving around a lot more than usual Total Score 13 Interpretation Moderate Depression Thoughts that you would be better off More than half th e days (Consider or of hurting yourself in some way Suicide Assessment Risk) Alcohol Screen Question Answer Notes Did you have a drink containing alcohol in the past year? Ye s Points 0 Interpretation Negative Tobacco Use/Smoking Question Answer Notes Are you a never smoker REASON FOR REFERRAL No Information VITAL SIGNS No information MEDICATIONS Medication SIG (Take, Route, Notes Start Date End Date Status Frequency, Duration) Fosamax 70 MG 1 tablet Orally once A ctive a week for 90 Voltaren 1 % Transdermal Unknown Vitamin D 1 capsule Orally Unknown (Ergocalciferol) 87576 UNIT Albuterol Sulfate 108 (90 2 puffs as needed Jul, Active Base) MCG/ACT Inhalation every 6 hrs as needed for sob for 30 days Coreg 12.5 MG 1 tablet Orally twice Active a day for 90 days Singulair 10 MG 1 tablet in the Unkn own evening Orally Once a day Cyclobenzaprine HCl 10 MG 1 tablet as needed Active Orally twice a day for 10 days Nasonex 50 MCG/ACT 2 sprays in each Unknown nostril Nasally Once a day Rosuvastatin Calcium 10 1 tablet Orally Once Dec, Active MG a day for 90 days Ultram 50 MG 1 tablet as needed Unkn own Orally every 6 hrs Aspirin Adult Low Dose 81 1 tablet Orally Once Unknown MG a day Telmisartan 80 MG 1/2 tablet Orally Active twice a day for 90 day(s) Cozaar 50 MG 1 tablet Orally Once Un known a day for 90 Zyrtec Allergy 10 MG 1 tablet Orally Once Active a day Cipro 500 MG 1 tablet Orally every U nknown 12 hrs for 10 day(s) ProAir HFA 108 (90 Base) 2 puffs as needed Unknown MCG/ACT Inhalation every 6 hrs Levothyroxine Sodium 50 TAKE 1 TABLET BY Unknown MCG MOUTH ONCE DAILY IN THE MORNING ON AN EMPTY STOMACH for 90 Diclofenac Sodium 1 % 2 gram application to Mar, Jun, Active affected area Transdermal Three times a day for 30 day(s) Flonase 50 MCG/ACT 2 spray in each Jul, Active nostril Nasally Once a day for 30 day(s) Albuterol Sulfate HFA 108 2 puffs Inhalation Dec, Active (90 Base) MCG/ACT every 6 hours prn sob for 30 days PredniSONE 20 MG 2 tablets dailyx 5 Active days then 1 tablet daily x 5 days with food Orally Once a day for 10 day(s) Levothyroxine Sodium 50 1 tablet on an empty Active MCG stomach in the morning Orally Once a day for 90 days Gabapentin 100 MG 1 capsule Orally A ctive three times a day for 90 days PROCEDURES No Information RESULTS No Results REASON FOR VISIT Leg pain. [phone] , Back pain MEDICAL (GENERAL) HISTORY Type Description Date Medical History Allergic rhinitis, seasonal Medical History Benign essential HTN Medical History Hyperlipidemia Medical History Obese Medical History Fibrocystic breast disease Medical History Depression with anxiety Medical History Chronic back pain Medical History Peripheral neuropathy Medical History Vitamin B12 deficiency Medical History Obstructive sleep apnea Surgical History Cholecytectomy Goals Section No Information Health Concerns No Information MEDICAL EQUIPMENT No Information MENTAL STATUS No Information FUNCTIONAL STATUS No Information ASSESSMENTS Encounter Date Diagnosis Assessment Notes Treatment Notes Treatm ent Clinical Notes Mar, Acute left-sided rx prednison taper back pain with course to take as sciatica (ICD-10 directed with food - M54.42) to decrease inflammation of sciatic nerve. do sciatica stretches daily. avoid prolong sitting for long periods of time to avoid irritation of sciatic nerve - For pain control try tylenol (acetaminophen) 500mg (2tabs) every 8 hours or as directed but Max of 3,000mg per day of acetaminophen( tylenol) -Avoid use of NSAIDS( ie ibuprofen motrin, or aleve ) to decrease risk of stomach ulcers/ bleeding if you have a history of gerd or Heart issues. May also try tumeric 500mg twice daily as a natural anti-inflammatory with less side effects on your kidneys. -Avoid tylenol if you have liver issues. May also use ice and heat and oct topical lidocaine/menthol sprays to decrease pain. Mar, Other Total time spen t by provider asuncion hurd this telephone visit was 15 minutes. Also, time was spent counseling and coordinating ca re including but n ot limited to discussion of t est results, diagnostic or treatment recommendations , prognosis, risk s and benefits of management options, instructions, education, compliance and or risk reduction. PLAN OF TREATMENT Medication Medication Name Sig Start Date Stop Date Cyclobenzaprine HCl 10 MG 1 tablet as needed Orally twice a day for 10 days PredniSONE 20 MG 2 tablets dailyx 5 days then 1 tablet daily x 5 days with food Orally Once a day for 10 day(s) Diclofenac Sodium 1 % 2 gram application to affected Mar, 0 2 Jun, 2020 area Transdermal Three times a day for 30 day(s) Treatment Notes Assessment Notes Clinical Notes Acute left-sided back pain with rx prednison taper course to take as sciatica directed with food to decrease inflammation of sciatic nerve.do sciatica stretches daily. avoid prolong sitting for long periods of time to avoid irritation of sciatic nerve- For pain control try tylenol (acetaminophen) 500mg (2tabs) every 8 hours or as directed but Max of 3,000mg per day of acetaminophen( tylenol)-Avoid use of NSAIDS( ie ibuprofen motrin, or aleve ) to decrease risk of stomach ulcers/ bleeding if you have a history of gerd or Heart issues. May also try tumeric 500mg twice daily as a natural anti-inflammatory with less side effects on your kidneys. -Avoid tylenol if you have liver issues. May also use ice and heat and oct topical lidocaine/menthol sprays to decrease pain. Next Appt Details prn Reason: Insurance Providers Payer Name Payer Payer Insured Patient Coverage Coverage End Address Phone Name Relationship to Start Date Andrea e Insured [facility] [phone] [place] [place] [id number] [address] [phone]
[2020-04-23] MEDS ORDERED: HYDROCODONE/APAP 5/325 MG TAB ONE (11:23)
[2020-04-23] MEDS ORDERED: IBUPROFEN 200 MG TAB PO ONE (11:24)
[2020-04-23] MEDS ORDERED: dexAMETHasone 10 MG/ML VIAL ONE (11:24)
[2020-04-23] MEDS ORDERED: IBUPROFEN 400 MG TAB ONE (11:24)
--- NOTE | 2020-04-23 11:59 | ER ---
Nurse's Notes [facility] Name: Kayla Bermudez Age: 59 yrs Sex: Female : 1960 Arrival Date: 04/23/2020 Time: 10:39 Bed 16 Private MD: Yessy Rangel Diagnosis: Radiculopathy, lumbar region Presentation: 04/23 10:52 Chief complaint: Patient states: Low back pain x 1 month, worse x 2 week, radiating jl7 down left leg. Coronavirus screen: Client denies travel out of the [place] in the last 14 days. At this time, the client does not indicate any symptoms associated with coronavirus-19. Ebola Screen: No symptoms or risks identified at this time. Initial Sepsis Screen: Does the patient meet any 2 criteria? No. Patient's initial sepsis screen is negative. Does the patient have a suspected source of infection? No. Patient's initial sepsis screen is negative. Risk Assessment: Do you want to hurt yourself or someone else? Patient reports no desire to harm self or others. Onset of symptoms is unknown. Care prior to arrival: None. Transition of care: patient was not received from another setting of care. 10:52 Method Of Arrival: Wheelchair jl7 10:52 Acuity: ENRRIQUE 4 jl7 Triage Assessment: 10:55 General: Appears in no apparent distress. uncomfortable, Behavior is calm, cooperative, jl7 appropriate for age. Pain: Complains of pain in low back area Pain radiates to left leg Pain currently is 10 out of 10 on a pain scale. Musculoskeletal: reports difficulty bearing weight. Historical: - Allergies: 10:55 No Known Allergies; jl7 - Home Meds: 10:55 carvedilol 25 mg oral tab 2 times per day [Active]; hydrochlorothiazide 25 mg Oral tab jl7 1 tab once daily [Active]; levothyroxine 50 mcg tab 1 tab once daily [Active]; rosuvastatin 10 mg oral tab 1 tab once daily [Active]; - PMHx: 10:55 High Cholesterol; Hypertension; Hypothyroidism; jl7 - PSHx: 10:55 Hysterectomy; Cholecystectomy; jl7 - Immunization history:: Adult Immunizations up to date. - Social history:: Smoking status: Patient denies any tobacco usage or history of. - Family history:: not pertinent. - Hospitalizations: : No recent hospitalization is reported. Screenin:55 Abuse screen: Denies threats or abuse. Denies injuries from another. Nutritional ca1 screening: No deficits noted. Tuberculosis screening: No symptoms or risk factors identified. Fall Risk None identified. Assessment: 10:55 General: Appears in no apparent distress. uncomfortable, Behavior is calm, cooperative, ca1 appropriate for age. Pain: Complains of pain in right low back and left leg Pain currently is 10 out of 10 on a pain scale. Pain began a month ago Aggravated by increased activity, repositioning, weight bearing. Neuro: Level of Consciousness is awake, alert, obeys commands, Oriented to person, place, time, situation. Cardiovascular: Heart tones S1 S2 present Capillary refill < 3 seconds Patient's skin is warm and dry. Respiratory: Airway is patent Respiratory effort is even, unlabored, Respiratory pattern is regular, symmetrical, Breath sounds are clear bilaterally. GI: Abdomen is round non-distended, Bowel sounds present X 4 quads. Abd is soft and non tender X 4 quads. : No signs and/or symptoms were reported regarding the genitourinary system. EENT: No signs and/or symptoms were reported regarding the EENT system. Derm: Skin is intact, is healthy with good turgor, Skin is pink, warm \T\ dry. Musculoskeletal: Circulation, motion, and sensation intact. Capillary refill < 3 seconds. 11:42 Reassessment: Patient appears in no apparent distress at this time. Patient and/or ca1 family updated on plan of care and expected duration. Pain level reassessed. Patient is alert, oriented x 3, equal unlabored respirations, skin warm/dry/pink. US at bedside. 12:03 Reassessment: Patient appears in no apparent distress at this time. Patient is alert, ca1 oriented x 3, equal unlabored respirations, skin warm/dry/pink. Vital Signs: 10:52 BP 131 / 103; Pulse 87; Resp 17; Temp 97.2; Pulse Ox 97% ; Weight 129.27 kg; Height 5 jl7 ft. 0 in. (152.40 cm); Pain 10/10; 11:19 BP 144 / 91; Pulse 78; Resp 16 S; Pulse Ox 98% on R/A; ca1 12:03 BP 140 / 78; Pulse 73; Resp 16 S; Pulse Ox 96% on R/A; ca1 10:52 Body Mass Index 55.66 (129.27 kg, 152.40 cm) jl7 ED Course: 10:39 Patient arrived in ED. ag5 10:40 Yessy Rangel MD is Private Physician. ag5 10:50 Mary Le, RN is Primary Nurse. ca1 10:53 Errol Mejia MD is Attending Physician. rn 10:54 Triage completed. jl7 10:55 Arm band placed on right wrist. jl7 10:55 Patient has correct armband on for positive identification. Bed in low position. Call ca1 light in reach. Side rails up X2. Pulse ox on. NIBP on. Warm blanket given. 12:04 No provider procedures requiring assistance completed. Patient did not have IV access ca1 during this emergency room visit. 12:22 Extremity Venous Uni Ltd US In Process Unspecified. EDMS Administered Medications: 11:10 Drug: [place] 5 mg-325 mg 1 tabs {Note: rass 0.} Route: PO; ca1 12:00 Follow up: Response: No adverse reaction; Pain is decreased; RASS: Alert and Calm (0) ca1 11:12 Drug: Motrin 600 mg Route: PO; ca1 12:00 Follow up: Response: No adverse reaction; Pain is decreased ca1 11:15 Drug: Decadron 10 mg Route: IM; Site: left deltoid; ca1 12:00 Follow up: Response: No adverse reaction; Pain is decreased ca1 Outcome: 11:59 Discharge ordered by MD. rn 12:08 Discharged to home via wheelchair, with family. ca1 12:08 Condition: stable 12:08 Discharge instructions given to patient, Instructed on discharge instructions, follow up and referral plans. medication usage, Demonstrated understanding of instructions, follow-up care, medications, Prescriptions given X 2. 12:09 Patient left the ED. ca1 Signatures: Dispatcher [employer] EDMS Errol Mejia MD MD rn Leal, Jahala, RN RN jl7 Mary Le RN RN Néstor Kaufman ag5
--- NOTE | 2020-04-23 11:59 | EDPHYS ---
Physician Documentation [facility] Name: Kayla Bermudez Age: 59 yrs Sex: Female : 1960 Arrival Date: 04/23/2020 Time: 10:39 Bed 16 Private MD: Yessy Rangel ED Physician Errol Mejia HPI: 04/23 11:05 This 59 yrs old Female presents to ER via Wheelchair with complaints of Back rn Pain, Trouble Walking. 11:05 This 59 yrs old Female presents to ER via Wheelchair with complaints of Back rn Pain, Trouble Walking. 11:05 The patient presents with pain that is chronic, with no known mechanism of injury. The rn symptoms are located in the low back. Onset: The symptoms/episode began/occurred 1 month(s) ago. The pain radiates to the left leg. Associated signs and symptoms: Pertinent positives: none Pertinent negatives: abdominal pain, chest pain, dysuria, fever, hematuria, incontinence, urinary retention, vomiting, weakness. Modifying factors: The patient symptoms are alleviated by remaining still, the patient symptoms are aggravated by any movement, lifting, walking. Severity of symptoms: At their worst the symptoms were moderate, in the emergency department the symptoms are unchanged. The patient has experienced similar episodes in the past. The patient has been recently seen by a physician:. Reports intermittent pain lower back for "some time", told has back problems in past, has had a back injury when younger, and told 1 month ago by PCP was pinched nerve, symptoms got better in 1-2 days with steroids. Returns today because having a few days of identical pain. No fever. No trauma. No urinary or bowel problems. Does report swelling of LLE. . Historical: - Allergies: 10:55 No Known Allergies; jl7 - Home Meds: 10:55 carvedilol 25 mg oral tab 2 times per day [Active]; hydrochlorothiazide 25 mg Oral tab jl7 1 tab once daily [Active]; levothyroxine 50 mcg tab 1 tab once daily [Active]; rosuvastatin 10 mg oral tab 1 tab once daily [Active]; - PMHx: 10:55 High Cholesterol; Hypertension; Hypothyroidism; jl7 - PSHx: 10:55 Hysterectomy; Cholecystectomy; jl7 - Immunization history:: Adult Immunizations up to date. - Social history:: Smoking status: Patient denies any tobacco usage or history of. - Family history:: not pertinent. - Hospitalizations: : No recent hospitalization is reported. ROS: 11:05 Constitutional: Negative for fever, chills, and weight loss, Eyes: Negative for injury, rn pain, redness, and discharge, Neck: Negative for injury, pain, and swelling, Cardiovascular: Negative for chest pain, palpitations Respiratory: Negative for shortness of breath, cough, wheezing, and pleuritic chest pain, Abdomen/GI: Negative for abdominal pain, nausea, vomiting, diarrhea, and constipation, Back: Negative for injury MS/Extremity: Negative for injury and deformity, Skin: Negative for injury, rash, and discoloration, Neuro: Negative for headache, weakness, and seizure. Exam: 11:05 Constitutional: Overweight female, no acute distress Head/Face: Normocephalic, rn atraumatic. Cardiovascular: Regular rate and rhythm. No pulse deficits. Respiratory: No increased work of breathing, no retractions or nasal flaring. Abdomen/GI: soft, non-tender Back: No spinal tenderness. Skin: Warm, dry MS/ Extremity: Pulses equal, no cyanosis. Neuro: Awake and alert, GCS 15, oriented to person, place, time, and situation. Cranial nerves II-XII grossly intact. Motor strength 5/5 in all extremities. Sensory grossly intact. Vital Signs: 10:52 BP 131 / 103; Pulse 87; Resp 17; Temp 97.2; Pulse Ox 97% ; Weight 129.27 kg; Height 5 jl7 ft. 0 in. (152.40 cm); Pain 10/10; 11:19 BP 144 / 91; Pulse 78; Resp 16 S; Pulse Ox 98% on R/A; ca1 12:03 BP 140 / 78; Pulse 73; Resp 16 S; Pulse Ox 96% on R/A; ca1 10:52 Body Mass Index 55.66 (129.27 kg, 152.40 cm) jl7 MDM: 10:53 Patient medically screened. rn 11:57 Differential diagnosis: arthritis, chronic back pain, Obesity Osteoarthritis sprain, rn radiculopathy. Data reviewed: vital signs, nurses notes, and as a result, I will discharge patient. Counseling: I had a detailed discussion with the patient and/or guardian regarding: the historical points, exam findings, and any diagnostic results supporting the discharge/admit diagnosis, the need for outpatient follow up, to return to the emergency department if symptoms worsen or persist or if there are any questions or concerns that arise at home. Response to treatment: the patient's symptoms have mildly improved after treatment, and as a result, I will discharge patient. Special discussion: I discussed with the patient/guardian in detail that at this point there is no indication for admission to the hospital. It is understood, however, that if the symptoms persist or worsen the patient needs to return immediately for re-evaluation. Further emergent ED testing is not indicated at this point in time. I discussed with the patient/guardian in detail the need to arrange with the PCP or specialist further outpatient testing, MRI, Based on the history and exam findings, there is no indication for further emergent testing or inpatient evaluation. I discussed with the patient/guardian the need to see the back specialist for further evaluation of the symptoms. 11:57 ED course: U/S neg for DVT. rn 04/23 11:05 Order name: Extremity Venous Uni Ltd rn Administered Medications: 11:10 Drug: [place] 5 mg-325 mg 1 tabs {Note: rass 0.} Route: PO; ca1 12:00 Follow up: Response: No adverse reaction; Pain is decreased; RASS: Alert and Calm (0) ca1 11:12 Drug: Motrin 600 mg Route: PO; ca1 12:00 Follow up: Response: No adverse reaction; Pain is decreased ca1 11:15 Drug: Decadron 10 mg Route: IM; Site: left deltoid; ca1 12:00 Follow up: Response: No adverse reaction; Pain is decreased ca1 Disposition: 04/23/20 11:59 Discharged to Home. Impression: Radiculopathy, lumbar region. - Condition is Stable. - Discharge Instructions: Lumbosacral Radiculopathy, Back Exercises. - Prescriptions for Medrol (Rafael) 4 mg Oral Tablets, Dose Pack - take 1 tablet by ORAL route as directed - follow package instructions; 1 packet. Cyclobenzaprine 5 mg Oral Tablet - take 1 tablet by ORAL route 3 times per day As needed; 15 tablet. - Medication Reconciliation Form, Thank You Letter, Antibiotic Education, Prescription Opioid Use form. - Follow up: Private Physician; When: As needed; Reason: Recheck today's complaints, Re-evaluation by your physician. - Problem is an ongoing problem. - Symptoms have improved. Signatures: Dispatcher [employer] EDErrol Kim MD MD rn Say Coleman RN RN jl7 Mary Le RN RN ca1 Corrections: (The following items were deleted from the chart) 12:09 11:59 04/23/2020 11:59 Discharged to Home. Impression: Radiculopathy, lumbar region. ca1 Condition is Stable. Forms are Medication Reconciliation Form, Thank You Letter, Antibiotic Education, Prescription Opioid Use. Follow up: Private Physician; When: As needed; Reason: Recheck today's complaints, Re-evaluation by your physician. Problem is an ongoing problem. Symptoms have improved. rn
[2020-04-23 12:14] VITALS: TEMP 97.2
[2020-04-23 12:17] VITALS: BP 140/78; O2SAT 96
--- NOTE | 2020-04-23 12:40 | RAD REPORT ---
EXAM DESCRIPTION: US - Extremity Venous Uni Ltd - 04/23/2020 12:23 pm CLINICAL HISTORY: Swelling;Pain COMPARISON: None. TECHNIQUE: Real-time sonographic evaluation of the left lower extremity deep venous system was perfo rmed. FINDINGS: Normal compressibility, flow augmentation, phasic flow and spontaneous flow are identified in the left lower extremity common femoral, superficial femoral, popliteal and posterior tibial vein s. No intraluminal filling defects seen. IMPRESSION: No DVT in the left lower extremity.
== END 2020-04-23 12:09 | disposition home or self-care (01) ==
LOC: ER 10:37
DX: M54.16 Radiculopathy, lumbar region (principal); E78.00 Pure hypercholesterolemia, unspecified; I10 Essential (primary) hypertension; E03.9 Hypothyroidism, unspecified
CPT/HCPCS: 93971; 96372; 99284; J1100

== ENCOUNTER 2022-08-27 11:39 | Emergency (ER) | payer OTHER ==
--- OUTSIDE RECORDS SUMMARY | 2022-08-27 11:55 | XMS REPORT | Continuity of Care Document ---
:1960 Author Organization [facility] t Address [address] [place] [address] [place] [id number] Care Team Providers Name Role Phone VELVET GILES Primary Care Physician Unavailable Velvet Giles Attending Clinician Unavailable Yessy Rangel Attending Clinician Unavailable JAZZY BLANDON Attending Clinician Unavailable LUDMILA DAVIES Attending Clinician Unavailable LUDMILA DAVIES Attending Clinician Unavailable Doctor Unassigned, [place] Attending Clinician Unavailable ANSHU ALDRICH Attending Clinician Unavailable ANSHU ALDRICH Attending Clinician Unavailable Anshu Aldrich MD Attending Clinician MCKENNA YOUNG Attending Clinician Unavailable Mckenna Young MD Attending Clinician MARIAM HOU Attending Clinician Unavailable Mariam Hou MD Attending Clinician [phone] FREDRICK SHAW JR Attending Clinician Unavailable Ce Garcia RN Attending Clinician Unavailable Dirk Mcleod MD Attending Clinician Calixto Snyder MD Attending Clinician CALIXTO SNYDER Attending Clinician Unavailable DWIGHT FELDMAN Attending Clinician Unavailable 2, [facility] Attending Clinician Unavailable Pc, [facility] Vascular Room 1 - Attending Clinician Unavailable Arsenio Murillo MD Attending Clinician Pc, [facility] Echo Room 1 - Attending Clinician Unavailable DIRK MCLEOD Admitting Clinician Unavailable ANSHU ALDRICH Admitting Clinician Unavailable Dirk Mcleod MD Admitting Clinician Payers Payer Name Policy Type Policy Number Effective Date Expiration Date S ource [facility] [id number] 2019 PLUS 00:00:00 [place] [id number] [id number] 2019 [facility] 00:00:00 Spirit - [facility] Problems Condition Condition Condition Status Onset Resolution Last Treating Co mments Source Name Details Category Date Date Treatment Clinician Date Morbid Morbid Disease Active Univers obesity obesity 5-04 [place]y [place] index 00 [place] dical of of Branch 40.0-49.9 40.0-49.9 Hyperosmol Hyperosmol Disease Active U nivers ar ar 5-04 [place] Med[place] luis (HHS) (HHS) Branch [id number] GERD Problem Common without Spirit esophagiti - [facility] [id number] Other Problem Common obesity Spirit due to - [facility] excess [facility] [id number] Adult BMI Problem Com mon 38.0-38.9 Spirit kg/sq m - [facility] [id number] Moderate Problem Commo n major Spirit depression - [facility] , single [facility] [id number] Iron Problem Common deficiency Spirit anemia, - [facility] unspecifie [facility] deficiency Medica l anemia Center type [id number] Hypothyroi Problem Co mmon dism Spirit (acquired) [facility] Peripheral Peripheral Problem C ommon neuropathy neuropathy Sp dante [facility] Vitamin Vitamin Problem Common B12 B12 Spirit deficiency deficiency [facility] Essential Benign Problem Common hypertensi essential Spi rit on HTN - [facility] Seasonal Allergic Problem Commo n allergic rhinitis, Spiri t rhinitis seasonal [facility] [id number] [place], [place] [address] joint, Spirit knee, - [facility] right [facility] [id number] [place], [place] [address] joint, Spirit knee, left - [facility] Hyperlipid Hyperlipid Problem C ommon emia emia [facility] Obstructiv Obstructiv Problem C ommon e sleep e sleep Spirit apnea apnea - [facility] Chronic Chronic Problem Common back pain back pain Spir it - [facility] [id number] Hypertensi Problem Co mmon ve urgency [facility] [id number] Chronic Problem Common Idiopathic Spirit Constipati - [facility]I on [facility] Obese Obese Problem Common [facility] [id number] 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 St coli] as [facility] diseases classified elsewhere [id number] Hematuria Problem Co mmon 80853 due to Spirit acute - [facility] cystitis [facility] [id number] Cystitis Problem Commo n Spirit [facility] [id number] Fibromyalg Problem Co mmon ia Spirit - [facility] [id number] Osteoporos Problem Com mon is of Spirit lumbar - [facility] spine [facility] Skin Paresthesi Problem Commo n sensation a of skin Spir it disturbanc - [facility] e [facility] [id number] Lumbar Problem Common back pain Spirit with - [facility] radiculopa [facility] left lower Center extremity [id number] Lumbar Problem Common disc Spirit herniation - [facility] [id number] Arthritis Problem Co mmon 043340 of knee, Spirit left - [facility] Fibrocysti Fibrocysti Problem C ommon c breast c breast Spirit changes disease - [facility] [id number] Unilateral Problem C ommon 59682 primary Spirit osteoarthr - CHI itis, St right knee [facility] Mixed Depression Problem Commo n anxiety with Spirit and anxiety - [facility]I depressive [facility] [id number] Primary Problem Common insomnia Spirit - [facility] [id number] Primary Problem Commo n osteoarthr Spirit itis of - CHI both knees [facility] [id number] Morbid Problem Common obesity Spirit due to - [facility]I excess [facility] [id number] PAD Problem Common (periphera Spirit l artery - CHI disease) [facility] [id number] Memory Problem Common change Spirit - [facility] [id number] Uncontroll Problem Co mmon ed type 2 Spirit diabetes - [facility]I mellitus [facility] hyperglyce Medica l [facility] [id number] Arthritis Problem Co mmon 209320 of knee, Spirit right - [facility] Allergies, Adverse Reactions, Alerts Allergy Allergy Status Severity Reaction(s) Onset Inactive Treating Comm ents Source Name Type Date Date Clinician NO KNOWN Drug Active Univers ALLERGIE Class ity of S [facility] [place] [facility] Social History Social Habit Start Date Stop Date Quantity Comments Source History of Common Spirit - Tobacco Use [facility] Sex Assigned At Common Sp datne - [facility] Exposure to 2022-07-14 2022-07-24 Not sure University of SARS-CoV-2 00:00:00 08:15:00 [facility] (event) [place] Tobacco use and 2020-02-04 2020-02-04 Smokeless tobacco Un iversity of exposure 00:00:00 00:00:00 non-user [facility] [place] [facility] Smoking Status Start Date Stop Date Source Never Smoker [facility] [place] Medications Ordered Filled Start Stop Current Ordering Indication Dosage Frequency Signature Comments Components Source Medication Medication Date Date Medication? Clinician (SIG) Name Name gabapentin Yes [id number] 100mg Take 1 Univers 100 mg 4-11 capsule by ity of capsule 00:00: mouth in [address] and 1 capsule at noon and 1 capsule in the evening. gabapentin Yes [id number] 100mg Take 1 Univers 100 mg 4-11 capsule by ity of capsule 00:00: mouth in [address] morning [place] and 1 capsule at noon and 1 capsule in the evening. gabapentin 2022-0 Yes [id number] 100mg Take 1 Univers 100 mg 2-10 capsule by ity of capsule 00:00: mouth in [address] and 1 capsule at noon and 1 capsule in the evening. gabapentin Yes [id number] 100mg Take 1 Univers 100 mg 2-10 capsule by ity of capsule 00:00: mouth in [place] 00 the Medical morning Branch and 1 capsule at noon and 1 capsule in the evening. gabapentin 2022-0 Yes [id number] 100mg Take 1 Univers 100 mg 2-10 capsule by ity of capsule 00:00: mouth in [place] 00 the [facility] Branch and 1 capsule at noon and 1 capsule in the evening. gabapentin 2022-0 2022- No [id number] 100mg Take 1 Univers 100 mg 2-10 04-11 capsule by ity of capsule 00:00: 00:00 mouth in [place] 00 :00 the [facility] Branch and 1 capsule at noon and 1 capsule in the evening. gabapentin 2022-0 2022- No [id number] 100mg Take 1 Univers 100 mg 2-10 04-11 capsule by ity of capsule 00:00: 00:00 mouth in [place] 00 :00 the [facility] and 1 capsule at noon and 1 capsule in the evening. tc 2022- No [id number] 41mCi 41 Univers 99m-tetrofo 04-26 millicurie i ty of smin 16:30: 16:20 , [place] ([facility]) 00 :00 Intravenou Medi luis injection s, ONCE, 1 Bran ch 41 dose, On [facility] 04/26/22 at 1030, Routine regadenoson 2022- No [id number] .4mg 0.4 mg, IV Univers (LEXISCAN) 04-26 Push, ity of injection 15:00: 16:17 [place]CE, 1 [place] 0.4 mg 00 :00 dose, On [facility] 04/26/22 at 0900, Routine
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 : ARSENIO MURILLO tc 2022- No [id number] 15.2mCi 15.2 Unive rs 99m-tetrofo 04-26 millicurie i ty of smin 14:30: 14:26 , [place] ([facility]) 00 :00 Intravenou Medi luis injection s, ONCE, 1 Bran ch 15.2 dose, On [facility] 04/26/22 at 0830, Routine Macrobid Macrobid 2021-04- No 1{capsu BID Macrobid 100 MG 100 MG 05-30 le_with 100 MG 00:00: 00:00 _food} 00 :00 Macrobid Macrobid 2021-04- No 1{capsu BID Macrobid 100 MG 100 MG 05-30 le_with 100 MG 00:00: 00:00 _food} 00 :00 ProAir HFA ProAir HFA 2021-04 No 2{puffs ProAir HFA 108 (90 108 (90 1-21 _as_nee 108 (90 Base) Base) 00:00: ded} Base) MCG/ACT MCG/ACT 00 MCG/ACT ProAir HFA ProAir HFA 2021-04 No 2{puffs ProAir HFA 108 (90 108 (90 1-21 _as_nee 108 (90 Base) Base) 00:00: ded} Base) MCG/ACT MCG/ACT 00 MCG/ACT ProAir HFA ProAir HFA 2021-04 No 2{puffs ProAir HFA 108 (90 108 (90 1-21 _as_nee 108 (90 Base) Base) 00:00: ded} Base) MCG/ACT MCG/ACT 00 MCG/ACT ProAir HFA ProAir HFA 2021-04 No 2{puffs ProAir HFA 108 (90 108 (90 1-21 _as_nee 108 (90 Base) Base) 00:00: ded} Base) MCG/ACT MCG/ACT 00 MCG/ACT ProAir HFA ProAir HFA 2021-04 No 2{puffs ProAir HFA 108 (90 108 (90 1-21 _as_nee 108 (90 Base) Base) 00:00: ded} Base) MCG/ACT MCG/ACT 00 MCG/ACT ProAir HFA ProAir HFA 2021-04 No 2{puffs ProAir HFA 108 (90 108 (90 1-21 _as_nee 108 (90 Base) Base) 00:00: ded} Base) MCG/ACT MCG/ACT 00 MCG/ACT ProAir HFA ProAir HFA 2021-04 No 2{puffs ProAir HFA 108 (90 108 (90 1-21 _as_nee 108 (90 Base) Base) 00:00: ded} Base) MCG/ACT MCG/ACT 00 MCG/ACT ProAir HFA ProAir HFA 2021-04 No 2{puffs ProAir HFA 108 (90 108 (90 1-21 _as_nee 108 (90 Base) Base) 00:00: ded} Base) MCG/ACT MCG/ACT 00 MCG/ACT ProAir HFA ProAir HFA 2021-04 No 2{puffs ProAir HFA 108 (90 108 (90 1-21 _as_nee 108 (90 Base) Base) 00:00: ded} Base) MCG/ACT MCG/ACT 00 MCG/ACT Benzonatate Benzonatate 2021-04- No 1{capsu TID Benzonatat 200 MG 200 MG 05-05 le} e 200 MG 00:00: 00:00 00 :00 Benzonatate Benzonatate 2021-04- No 1{capsu TID Benzonatat 200 MG 200 MG 05-05 le} e 200 MG 00:00: 00:00 00 :00 Benzonatate Benzonatate 2021-04- No 1{capsu TID Benzonatat 200 MG 200 MG 05-05 le} e 200 MG 00:00: 00:00 00 :00 Benzonatate Benzonatate 2021-04- No 1{capsu TID Benzonatat 200 MG 200 MG 05-05 le} e 200 MG 00:00: 00:00 00 :00 triamterene 2021-0 Yes [id number] 1{capsu Take 1 Univers -hydrochlor 3-24 le} capsule by it y of othiazide 00:00: mouth [place] (DYAZIDE) 00 every Medical 37.5-25 mg morning. Branc h per capsule triamterene 2021-0 Yes [id number] 1{capsu Take 1 Univers -hydrochlor 3-24 le} capsule by it y of othiazide 00:00: mouth [place] (DYAZIDE) 00 every Medical 37.5-25 mg morning. Branc h per capsule triamterene 2021-0 Yes [id number] 1{capsu Take 1 Univers -hydrochlor 3-24 le} capsule by it y of othiazide 00:00: mouth [place] (DYAZIDE) 00 every Medical 37.5-25 mg morning. Branc h per capsule triamterene 2021-0 Yes [id number] 1{capsu Take 1 Univers -hydrochlor 3-24 le} capsule by it y of othiazide 00:00: mouth [place] (DYAZIDE) 00 every Medical 37.5-25 mg morning. Branc h per capsule triamterene 2021-0 Yes [id number] 1{capsu Take 1 Univers -hydrochlor 3-24 le} capsule by it y of othiazide 00:00: mouth [place] (DYAZIDE) 00 every Medical 37.5-25 mg morning. Branc h per capsule triamterene 2021-0 Yes [id number] 1{capsu Take 1 Univers -hydrochlor 3-24 le} capsule by it y of othiazide 00:00: mouth [place] (DYAZIDE) 00 every Medical 37.5-25 mg morning. Branc h per capsule triamterene 2021-0 Yes [id number] 1{capsu Take 1 Univers -hydrochlor 3-24 le} capsule by it y of othiazide 00:00: mouth [place] (DYAZIDE) 00 every Medical 37.5-25 mg morning. Branc h per capsule triamterene 2021-0 Yes [id number] 1{capsu Take 1 Univers -hydrochlor 3-24 le} capsule by it y of othiazide 00:00: mouth [place] (DYAZIDE) 00 every Medical 37.5-25 mg morning. Branc h per capsule triamterene 2021-0 Yes [id number] 1{capsu Take 1 Univers -hydrochlor 3-24 le} capsule by it y of othiazide 00:00: mouth [place] (DYAZIDE) 00 every Medical 37.5-25 mg morning. Branc h per capsule triamterene 2021-0 Yes [id number] 1{capsu Take 1 Univers -hydrochlor 3-24 le} capsule by it y of othiazide 00:00: mouth [place] (DYAZIDE) 00 every Medical 37.5-25 mg morning. Branc h per capsule triamterene 2021-0 Yes [id number] 1{capsu Take 1 Univers -hydrochlor 3-24 le} capsule by it y of othiazide 00:00: mouth [place] (DYAZIDE) 00 every Medical 37.5-25 mg morning. Branc h per capsule triamterene 2021-0 Yes [id number] 1{capsu Take 1 Univers -hydrochlor 3-24 le} capsule by it y of othiazide 00:00: mouth [place] (DYAZIDE) 00 every Medical 37.5-25 mg morning. Branc h per capsule triamterene 2-0 Yes [id number] 1{capsu Take 1 Univers -hydrochlor 3-24 le} capsule by it y of othiazide 00:00: mouth [place] (DYAZIDE) 00 every Medical 37.5-25 mg morning. Branc h per capsule triamterene 2021-0 Yes [id number] 1{capsu Take 1 Univers -hydrochlor 3-24 le} capsule by it y of othiazide 00:00: mouth [place] (DYAZIDE) 00 every Medical 37.5-25 mg morning. Branc h per capsule triamterene 2021-0 Yes [id number] 1{capsu Take 1 Univers -hydrochlor 3-24 le} capsule by it y of othiazide 00:00: mouth [place] (DYAZIDE) 00 every Medical 37.5-25 mg morning. Branc h per capsule triamterene 2021-0 Yes [id number] 1{capsu Take 1 Univers -hydrochlor 3-24 le} capsule by it y of othiazide 00:00: mouth [place] (DYAZIDE) 00 every Medical 37.5-25 mg morning. Branc h per capsule triamterene 2021-0 Yes [id number] 1{capsu Take 1 Univers -hydrochlor 3-24 le} capsule by it y of othiazide 00:00: mouth [place] (DYAZIDE) 00 every Medical 37.5-25 mg morning. Branc h per capsule triamterene 2021-0 Yes [id number] 1{capsu Take 1 Univers -hydrochlor 3-24 le} capsule by it y of othiazide 00:00: mouth [place] (DYAZIDE) 00 every Medical 37.5-25 mg morning. Branc h per capsule triamterene 2-0 Yes [id number] 1{capsu Take 1 Univers -hydrochlor 3-24 le} capsule by it y of othiazide 00:00: mouth [place] (DYAZIDE) 00 every Medical 37.5-25 mg morning. Branc h per capsule triamterene 2-0 Yes [id number] 1{capsu Take 1 Univers -hydrochlor 3-24 le} capsule by it y of othiazide 00:00: mouth [place] (DYAZIDE) 00 every Medical 37.5-25 mg morning. Branc h per capsule triamterene 2022-0 Yes [id number] 1{capsu Take 1 Univers -hydrochlor 3-24 le} capsule by it y of othiazide 00:00: mouth [place] (DYAZIDE) 00 every Medical 37.5-25 mg morning. Branc h per capsule triamterene 0 Yes [id number] 1{capsu Take 1 Univers -hydrochlor 3-24 le} capsule by it y of othiazide 00:00: mouth [place] (DYAZIDE) 00 every Medical 37.5-25 mg morning. Branc h per capsule hydroCHLORO Yes [id number] 25mg Take 1 Univers thiazide 25 1-21 tablet by ity of mg tablet 00:00: mouth [place] 00 daily. Medical Branch hydroCHLORO 2021- No [id number] 25mg Take 1 Univers thiazide 25 1-21 03-24 tablet by it y of mg tablet 00:00: 00:00 mouth [place] 00 :00 daily. Medical Branch Levothyroxi 2020-04 Yes 50ug Take 50 Uni vers ne 50 mcg 1-04 mcg by ity of capsule 09:01: mouth [place] 10 every Medical morning. Branch Levothyroxi 2020-04 Yes 50ug Take 50 Uni vers ne 50 mcg 1-04 mcg by ity of capsule 09:01: mouth [place] 10 every Medical morning. Branch Levothyroxi 2020-04 Yes 50ug Take 50 Uni vers ne 50 mcg 1-04 mcg by ity of capsule 09:01: mouth [place] 10 every Medical morning. Branch Levothyroxi 2020-04 Yes 50ug Take 50 Uni vers ne 50 mcg 1-04 mcg by ity of capsule 09:01: mouth [place] 10 every Medical morning. Branch Levothyroxi 2020-04 Yes 50ug Take 50 Uni vers ne 50 mcg 1-04 mcg by ity of capsule 09:01: mouth [place] 10 every Medical morning. Branch Levothyroxi 2020-04 Yes 50ug Take 50 Uni vers ne 50 mcg 1-04 mcg by ity of capsule 09:01: mouth [place] 10 every Medical morning. Branch Levothyroxi 2020-04 Yes 50ug Take 50 Uni vers ne 50 mcg 1-04 mcg by ity of capsule 09:01: mouth [place] 10 every Medical morning. Branch Levothyroxi 2020-04 Yes 50ug Take 50 Uni vers ne 50 mcg 1-04 mcg by ity of capsule 09:01: mouth [place] 10 every Medical morning. Branch Levothyroxi 2020-04 Yes 50ug Take 50 Uni vers ne 50 mcg 1-04 mcg by ity of capsule 09:01: mouth [place] 10 every Medical morning. Branch Levothyroxi 2020-04 Yes 50ug Take 50 Uni vers ne 50 mcg 1-04 mcg by ity of capsule 09:01: mouth [place] 10 every Medical morning. Branch Levothyroxi 2020-04 Yes 50ug Take 50 Uni vers ne 50 mcg 1-04 mcg by ity of capsule 09:01: mouth [place] 10 every Medical morning. Branch Levothyroxi 2020-04 Yes 50ug Take 50 Uni vers ne 50 mcg 1-04 mcg by ity of capsule 09:01: mouth [place] 10 every Medical morning. Branch Levothyroxi 2020-04 Yes 50ug Take 50 Uni vers ne 50 mcg 1-04 mcg by ity of capsule 09:01: mouth [place] 10 every Medical morning. Branch Levothyroxi 2020-04 Yes 50ug Take 50 Uni vers ne 50 mcg 1-04 mcg by ity of capsule 09:01: mouth [place] 10 every Medical morning. Branch Levothyroxi 2020-04 Yes 50ug Take 50 Uni vers ne 50 mcg 1-04 mcg by ity of capsule 09:01: mouth [place] 10 every Medical morning. Branch Levothyroxi 2020-04 Yes 50ug Take 50 Uni vers ne 50 mcg 1-04 mcg by ity of capsule 09:01: mouth [place] 10 every Medical morning. Branch Levothyroxi 2020-04 Yes 50ug Take 50 Uni vers ne 50 mcg 1-04 mcg by ity of capsule 09:01: mouth [place] 10 every Medical morning. Branch Levothyroxi 2020-04 Yes 50ug Take 50 Uni vers ne 50 mcg 1-04 mcg by ity of capsule 09:01: mouth [place] 10 every Medical morning. Branch Levothyroxi 2020-04 Yes 50ug Take 50 Uni vers ne 50 mcg 1-04 mcg by ity of capsule 09:01: mouth [place] 10 every Medical morning. Branch Levothyroxi 2020-04 Yes 50ug Take 50 Uni vers ne 50 mcg 1-04 mcg by ity of capsule 09:01: mouth [place] 10 every Medical morning. Branch Levothyroxi 2020-04 Yes 50ug Take 50 Uni vers ne 50 mcg 1-04 mcg by ity of capsule 09:01: mouth [place] 10 every Medical morning. Branch Levothyroxi 2020-04 Yes 50ug Take 50 Uni vers ne 50 mcg 1-04 mcg by ity of capsule 09:01: mouth [place] 10 every Medical morning. Branch Levothyroxi 2020-04 Yes 50ug Take 50 Uni vers ne 50 mcg 1-04 mcg by ity of capsule 09:01: mouth [place] 10 every Medical morning. Branch Euflexxa Euflexxa 1-0 No 20mg Commo n 8-24 Spirit 00:00: - [facility]I 00 [facility] Euflexxa Euflexxa 1-0 No 20mg Commo n 8-24 Spirit 00:00: - [facility]I 00 [facility] Euflexxa Euflexxa 1-0 No 20mg Commo n 8-24 Spirit 00:00: - CHI 00 [facility] Euflexxa Euflexxa 1-0 No 20mg Commo n 8-24 Spirit 00:00: - [facility]I 00 [facility] Euflexxa Euflexxa 1-0 No 20mg Commo n 8-24 Spirit 00:00: - CHI 00 [facility] Euflexxa Euflexxa 1-0 No 20mg Commo n 8-24 Spirit 00:00: - CHI 00 [facility] Euflexxa Euflexxa 1-0 No 20mg Commo n 8-24 Spirit 00:00: - CHI 00 [facility] Euflexxa Euflexxa 1-0 No 20mg Commo n 8-24 Spirit 00:00: - CHI 00 [facility] Euflexxa Euflexxa 1-0 No 20mg Commo n 8-24 Spirit 00:00: - [facility]I 00 [facility] Euflexxa Euflexxa 1-0 No 20mg Commo n 8-24 Spirit 00:00: - CHI 00 [facility] Euflexxa Euflexxa 1-0 No 20mg Commo n 8-24 Spirit 00:00: - CHI 00 [facility] Euflexxa Euflexxa 1-0 No 20mg Commo n 8-24 Spirit 00:00: - CHI 00 [facility] Euflexxa Euflexxa 1-0 No 20mg Commo n 8-24 Spirit 00:00: - CHI 00 [facility] Euflexxa Euflexxa 1-0 No 20mg Commo n 8-24 Spirit 00:00: - CHI 00 [facility] Euflexxa Euflexxa 1-0 No 20mg Commo n 8-24 Spirit 00:00: - CHI 00 [facility] Euflexxa Euflexxa 1-0 No 20mg Commo n 8-24 Spirit 00:00: - [facility]I 00 [facility] Euflexxa Euflexxa 1-0 No 20mg Commo n 8-24 Spirit 00:00: - [facility]I 00 [facility] Euflexxa Euflexxa 1-0 No 20mg Commo n 8-24 Spirit 00:00: - [facility]I 00 [facility] Euflexxa Euflexxa 1-0 No 20mg Commo n 8-24 Spirit 00:00: - [facility]I 00 [facility] Euflexxa Euflexxa 1-0 No 20mg Commo n 8-24 Spirit 00:00: - [facility]I 00 [facility] Euflexxa Euflexxa 1-0 No 20mg Commo n 8-24 Spirit 00:00: - CHI 00 [facility] Euflexxa Euflexxa 1-0 No 20mg Commo n 8-24 Spirit 00:00: - CHI 00 [facility] Euflexxa Euflexxa 1-0 No 20mg Commo n 8-24 Spirit 00:00: - [facility]I 00 [facility] Euflexxa Euflexxa 1-0 No 20mg Commo n 8-24 Spirit 00:00: - [facility]I 00 [facility] Euflexxa Euflexxa 1-0 No 20mg Commo n 8-24 Spirit 00:00: - [facility]I 00 [facility] Euflexxa Euflexxa 1-0 No 20mg Commo n 8-24 Spirit 00:00: - [facility]I 00 [facility] Euflexxa Euflexxa 1-0 No 20mg Commo n 8-24 Spirit 00:00: - [facility]I 00 [facility] Euflexxa Euflexxa 1-0 No 20mg Commo n 8-24 Spirit 00:00: - [facility]I 00 [facility] Euflexxa Euflexxa 1-0 No 20mg Commo n 8-24 Spirit 00:00: - [facility]I 00 [facility] Euflexxa Euflexxa 1-0 No 20mg Commo n 8-24 Spirit 00:00: - [facility]I 00 [facility] Euflexxa Euflexxa 1-0 No 20mg Commo n 8-24 Spirit 00:00: - [facility]I 00 [facility] Euflexxa Euflexxa 1-0 No 20mg Commo n 8-24 Spirit 00:00: - [facility]I 00 [facility] Euflexxa Euflexxa 1-0 No 20mg Commo n 8-24 Spirit 00:00: - [facility]I 00 [facility] Euflexxa Euflexxa 1-0 No 20mg Commo n 8- Spirit 00:00: - [facility]I 00 [facility] Euflexxa Euflexxa 1-0 No 20mg Commo n 8- Spirit 00:00: - [facility]I 00 [facility] Euflexxa Euflexxa 1-0 No 20mg Commo n 8- Spirit 00:00: - [facility]I 00 [facility] Euflexxa Euflexxa 1-0 No 20mg Commo n 8- Spirit 00:00: - [facility]I 00 [facility] Euflexxa Euflexxa 1-0 No 20mg Commo n 8- Spirit 00:00: - [facility]I 00 [facility] Euflexxa Euflexxa 1-0 No 20mg Commo n 8-24 Spirit 00:00: - [facility]I 00 [facility] Euflexxa Euflexxa 1-0 No 20mg Commo n 8-24 Spirit 00:00: - [facility]I 00 [facility] Euflexxa Euflexxa 1-0 No 20mg Commo n 8- Spirit 00:00: - [facility] 00 [facility] Euflexxa Euflexxa 1-0 No 20mg Commo n 8- Spirit 00:00: - [facility] 00 [facility] Euflexxa Euflexxa 1-0 No 20mg Commo n 8- Spirit 00:00: - [facility] 00 [facility] Euflexxa Euflexxa 1-0 No 20mg Commo n 8-17 Spirit 00:00: - [facility] 00 [facility] Euflexxa Euflexxa 1-0 No 20mg Commo n 8-17 [facility] 00:00: - [facility] Euflexxa Euflexxa 1-0 No 20mg Commo n 8-17 [facility] 00:00: - [facility] Euflexxa Euflexxa 1-0 No 20mg Commo n 8-17 [facility] 00:00: - [facility] Euflexxa Euflexxa 1-0 No 20mg Commo n 8-17 [facility] 00:00: - [facility] Euflexxa Euflexxa 1-0 No 20mg Commo n 8-17 [facility] 00:00: - [facility] Euflexxa Euflexxa 1-0 No 20mg Commo n 8-17 [facility] 00:00: - [facility] Euflexxa Euflexxa 1-0 No 20mg Commo n 8-17 [facility] 00:00: - [facility] Euflexxa Euflexxa 1-0 No 20mg Commo n 8-17 [facility] 00:00: - [facility] Euflexxa Euflexxa 1-0 No 20mg Commo n 8-17 [facility] 00:00: - [facility] Euflexxa Euflexxa 1-0 No 20mg Commo n 8-17 [facility] 00:00: - [facility] Euflexxa Euflexxa 1-0 No 20mg Commo n 8-17 [facility] 00:00: - [facility] Euflexxa Euflexxa 1-0 No 20mg Commo n 8-17 [facility] 00:00: - [facility] Euflexxa Euflexxa 1-0 No 20mg Commo n 8-17 [facility] 00:00: - [facility] Euflexxa Euflexxa 1-0 No 20mg Commo n 8-17 [facility] 00:00: - [facility] Euflexxa Euflexxa 1-0 No 20mg Commo n 8-17 [facility] 00:00: - [facility] Euflexxa Euflexxa 2021-0 No 20mg Commo n 8-17 [facility] 00:00: - [facility] Euflexxa Euflexxa 1-0 No 20mg Commo n 8-17 [facility] 00:00: - [facility] Euflexxa Euflexxa 1-0 No 20mg Commo n 8-17 [facility] 00:00: - [facility] Euflexxa Euflexxa 1-0 No 20mg Commo n 8-17 [facility] 00:00: - [facility] Euflexxa Euflexxa 1-0 No 20mg Commo n 8-17 [facility] 00:00: - [facility] Euflexxa Euflexxa 1-0 No 20mg Commo n 8-17 [facility] 00:00: - [facility] Euflexxa Euflexxa 1-0 No 20mg Commo n 8-17 [facility] 00:00: - [facility] Euflexxa Euflexxa 1-0 No 20mg Commo n 8-17 [facility] 00:00: - [facility] Euflexxa Euflexxa 1-0 No 20mg Commo n 8-17 [facility] 00:00: - [facility] Euflexxa Euflexxa 1-0 No 20mg Commo n 8-17 [facility] 00:00: - [facility] Euflexxa Euflexxa 1-0 No 20mg Commo n 8-17 [facility] 00:00: - [facility] Euflexxa Euflexxa 1-0 No 20mg Commo n 8-17 [facility] 00:00: - [facility] Euflexxa Euflexxa 1-0 No 20mg Commo n 8-17 [facility] 00:00: - [facility] Euflexxa Euflexxa 1-0 No 20mg Commo n 8-17 [facility] 00:00: - [facility] Euflexxa Euflexxa 1-0 No 20mg Commo n 8-17 [facility] 00:00: - [facility] Euflexxa Euflexxa 1-0 No 20mg Commo n 8-17 [facility] 00:00: - [facility] Euflexxa Euflexxa 1-0 No 20mg Commo n 8-17 [facility] 00:00: - [facility] Euflexxa Euflexxa 1-0 No 20mg Commo n 8-17 [facility] 00:00: - [facility] Euflexxa Euflexxa 1-0 No 20mg Commo n 8-17 [facility] 00:00: - [facility] Euflexxa Euflexxa 1-0 No 20mg Commo n 8-17 [facility] 00:00: - [facility] Euflexxa Euflexxa 1-0 No 20mg Commo n 8-17 [facility] 00:00: - [facility] Euflexxa Euflexxa 1-0 No Commo n 8-10 Spirit 00:00: - [facility] Euflexxa Euflexxa 1-0 No Commo n 8-10 [facility] 00:00: - [facility] Euflexxa Euflexxa 1-0 No Commo n 8-10 Spirit 00:00: - [facility] Euflexxa Euflexxa 1-0 No Commo n 8-10 Spirit 00:00: - [facility] Euflexxa Euflexxa 1-0 No Commo n 8-10 Spirit 00:00: - [facility] Euflexxa Euflexxa 1-0 No Commo n 8-10 [facility] 00:00: - [facility] Euflexxa Euflexxa 1-0 No Commo n 8-10 [facility] 00:00: - [facility] Euflexxa Euflexxa 1-0 No Commo n 8-10 [facility] 00:00: - [facility] Euflexxa Euflexxa 1-0 No Commo n 8-10 Spirit 00:00: - [facility] Euflexxa Euflexxa 2021-0 No Commo n 8-10 [facility] 00:00: - [facility] Euflexxa Euflexxa 1-0 No Commo n 8-10 [facility] 00:00: - [facility] Euflexxa Euflexxa 2021-0 No Commo n 8-10 [facility] 00:00: - [facility] Euflexxa Euflexxa 1-0 No Commo n 8-10 [facility] 00:00: - [facility] Euflexxa Euflexxa 1-0 No Commo n 8-10 [facility] 00:00: - [facility] Euflexxa Euflexxa 1-0 No Commo n 8-10 [facility] 00:00: - [facility] Euflexxa Euflexxa 1-0 No Commo n 8-10 [facility] 00:00: - [facility] Euflexxa Euflexxa 1-0 No Commo n 8-10 [facility] 00:00: - [facility] Euflexxa Euflexxa 1-0 No Commo n 8-10 [facility] 00:00: - [facility] Euflexxa Euflexxa 1-0 No Commo n 8-10 [facility] 00:00: - [facility] Euflexxa Euflexxa 1-0 No Commo n 8-10 [facility] 00:00: - [facility] Euflexxa Euflexxa 1-0 No Commo n 8-10 [facility] 00:00: - [facility] Euflexxa Euflexxa 1-0 No Commo n 8-10 [facility] 00:00: - [facility] Euflexxa Euflexxa 1-0 No Commo n 8-10 [facility] 00:00: - [facility] Euflexxa Euflexxa 1-0 No Commo n 8-10 [facility] 00:00: - [facility] Euflexxa Euflexxa 1-0 No Commo n 8-10 [facility] 00:00: - [facility] Euflexxa Euflexxa 1-0 No Commo n 8-10 [facility] 00:00: - [facility] Euflexxa Euflexxa 1-0 No Commo n 8-10 [facility] 00:00: - [facility] Euflexxa Euflexxa 1-0 No Commo n 8-10 [facility] 00:00: - [facility] Euflexxa Euflexxa 2020-0 No Commo n 8-10 [facility] 00:00: - [facility] Euflexxa Euflexxa 2020-0 No Commo n 8-10 [facility] 00:00: - [facility] Euflexxa Euflexxa 2020-0 No Commo n 8-10 [facility] 00:00: - [facility] Euflexxa Euflexxa 2020-0 No Commo n 8-10 [facility] 00:00: - [facility] Euflexxa Euflexxa 2020-0 No Commo n 8-10 [facility] 00:00: - [facility] Euflexxa Euflexxa 2020-0 No Commo n 8-10 [facility] 00:00: - [facility] Euflexxa Euflexxa 2020-0 No Commo n 8-10 [facility] 00:00: - [facility] Euflexxa Euflexxa 2020-0 No Commo n 8-10 [facility] 00:00: - [facility] Euflexxa Euflexxa 2020-0 No Commo n 8-10 [facility] 00:00: - [facility] Euflexxa Euflexxa 2020-0 No Commo n 8-10 [facility] 00:00: - [facility] Euflexxa Euflexxa 2020-0 No Commo n 8-10 [facility] 00:00: - [facility] Euflexxa Euflexxa 2020-0 No Commo n 8-10 [facility] 00:00: - [facility] metFORMIN 2020-0 Yes [id number] 500mg Take 1 U nivers 500 mg 5-06 tablet by ity of tablet 00:00: mouth 2 [place] 00 (two) Medical times Branch daily with meals. atorvastati 0 Yes [id number] 80mg Take 1 [facility] n 80 mg 5-06 tablet by ity of tablet 00:00: mouth at [place] 00 bedtime. Medical Branch insulin NPH 0 Yes [id number] 14U inject 14 [facility] and regular 5-06 Units ity of human 70-30 00:00: under the [place] 100 unit/mL 00 skin 2 Medica l (70-30) (two) Branch injection times daily before breakfast and dinner. metFORMIN 2020-0 Yes [id number] 500mg Take 1 U nivers 500 mg 5-06 tablet by ity of tablet 00:00: mouth 2 (two) Medical times Branch daily with meals. atorvastati 2020-0 Yes [id number] 80mg Take 1 [facility] n 80 mg 5-06 tablet by ity of tablet 00:00: mouth at [place] 00 bedtime. Medical Branch insulin NPH 2020-0 Yes [id number] 14U inject 14 [facility] and regular 5-06 Units ity of human 70-30 00:00: under the [place] 100 unit/mL 00 skin 2 Medica l (70-30) (two) Branch injection times daily before breakfast and dinner. metFORMIN 2020-0 Yes [id number] 500mg Take 1 U nivers 500 mg 5-06 tablet by ity of tablet 00:00: mouth 2 (two) Medical times Branch daily with meals. atorvastati 0 Yes [id number] 80mg Take 1 [facility] n 80 mg 5-06 tablet by ity of tablet 00:00: mouth at [place] 00 bedtime. Medical Branch insulin NPH 0 Yes [id number] 14U inject 14 Univers and regular 5-06 Units ity of human 70-30 00:00: under the [place] 100 unit/mL 00 skin 2 Medica l (70-30) (two) Branch injection times daily before breakfast and dinner. metFORMIN 2020-0 Yes [id number] 500mg Take 1 U nivers 500 mg 5-06 tablet by ity of tablet 00:00: mouth (two) Medical times Branch daily with meals. atorvastati 0 Yes [id number] 80mg Take 1 [facility] n 80 mg 5-06 tablet by ity of tablet 00:00: mouth at [place] 00 bedtime. Medical Branch insulin NPH 2020-0 Yes [id number] 14U inject 14 [facility] and regular 5-06 Units ity of human 70-30 00:00: under the [place] 100 unit/mL 00 skin 2 Medica l (70-30) (two) Branch injection times daily before breakfast and dinner. metFORMIN 2020-0 Yes [id number] 500mg Take 1 U nivers 500 mg 5-06 tablet by ity of tablet 00:00: mouth 2 [place] 00 (two) Medical times Branch daily with meals. atorvastati Yes [id number] 80mg Take 1 [facility] n 80 mg 5-06 tablet by ity of tablet 00:00: mouth at [place] 00 bedtime. Medical Branch insulin NPH Yes [id number] 14U inject 14 [facility] and regular 5-06 Units ity of human 70-30 00:00: under the [place] 100 unit/mL 00 skin 2 Medica l (70-30) (two) Branch injection times daily before breakfast and dinner. Insulin Yes [id number] 14U inject 14 U nivers NPH-Regular 5-06 Units ity of Human Rec 00:00: under the [place] as (HUMULIN 00 skin 2 Medical 70/30 U-100 (two) Branch KWIKPEN) times 100 unit/mL daily (70-30) before injection breakfast and dinner. metFORMIN Yes [id number] 500mg Take 1 U nivers 500 mg 5-06 tablet by ity of tablet 00:00: mouth 2 [place] 00 (two) Medical times Branch daily with meals. atorvastati Yes [id number] 80mg Take 1 [facility] n 80 mg 5-06 tablet by ity of tablet 00:00: mouth at [place] 00 bedtime. Medical Branch gabapentin Yes [id number] 100mg Take 1 [facility] 100 mg 5-06 capsule by ity of capsule 00:00: mouth 3 [place] 00 (three) Medical times Branch daily. Insulin Yes [id number] Use as [facility] ers [place], 5-06 directed ity of Disposable, 00:00: [place] 30 gauge x 00 Medical 5/16" Ndle Branch Lancets 0 Yes [id number] Use as Univ ers Misc 5-06 directed ity of 00:00: [place] 00 Medical Branch insulin NPH Yes [id number] 14U inject 14 Univers and regular 5-06 Units ity of human 70-30 00:00: under the [place] 100 unit/mL 00 skin 2 Medica l (70-30) (two) Branch injection times daily before breakfast and dinner. Insulin Yes [id number] 14U inject 14 U nivers NPH-Regular 5-06 Units ity of Human Rec 00:00: under the [place] as (HUMULIN 00 skin 2 Medical 70/30 U-100 (two) Branch KWIKPEN) times 100 unit/mL daily (70-30) before injection breakfast and dinner. metFORMIN Yes [id number] 500mg Take 1 U nivers 500 mg 5-06 tablet by ity of tablet 00:00: mouth 2 (two) Medical times Branch daily with meals. atorvastati Yes [id number] 80mg Take 1 [facility] n 80 mg 5-06 tablet by ity of tablet 00:00: mouth at [place] 00 bedtime. Medical Branch gabapentin Yes [id number] 100mg Take 1 [facility] 100 mg 5-06 capsule by ity of capsule 00:00: mouth 3 (three) Medical times Branch daily. Insulin Yes [id number] Use as [facility] ers [place], 5-06 directed ity of Disposable, 00:00: [place] 30 gauge x 00 Medical 5/16" Ndle Branch Lancets Yes [id number] Use as Univ ers Misc 5-06 directed ity of 00:00: [place] 00 Medical Branch insulin NPH Yes [id number] 14U inject 14 Univers and regular 5-06 Units ity of human 70-30 00:00: under the [place] 100 unit/mL 00 skin 2 Medica l (70-30) (two) Branch injection times daily before breakfast and dinner. Insulin Yes [id number] 14U inject 14 U nivers NPH-Regular 5-06 Units ity of Human Rec 00:00: under the [place] as (HUMULIN 00 skin 2 Medical 70/30 U-100 (two) Branch KWIKPEN) times 100 unit/mL daily (70-30) before injection breakfast and dinner. metFORMIN Yes [id number] 500mg Take 1 U nivers 500 mg 5-06 tablet by ity of tablet 00:00: mouth 2 (two) Medical times Branch daily with meals. atorvastati 0 Yes [id number] 80mg Take 1 [facility] n 80 mg 5-06 tablet by ity of tablet 00:00: mouth at [place] 00 bedtime. Medical Branch gabapentin 0 Yes [id number] 100mg Take 1 [facility] 100 mg 5-06 capsule by ity of capsule 00:00: mouth 3 [place] 00 (three) Medical times Branch daily. Insulin Yes [id number] Use as [facility] ers [place], 5-06 directed ity of Disposable, 00:00: [place] 30 gauge x 00 Medical 5/16" Ndle Branch Lancets 0 Yes [id number] Use as Univ ers Misc 5-06 directed ity of 00:00: [place] 00 Medical Branch insulin NPH Yes [id number] 14U inject 14 Univers and regular 5-06 Units ity of human 70-30 00:00: under the [place] 100 unit/mL 00 skin 2 Medica l (70-30) (two) Branch injection times daily before breakfast and dinner. Insulin Yes [id number] 14U inject 14 U nivers NPH-Regular 5-06 Units ity of Human Rec 00:00: under the [place] as (HUMULIN 00 skin 2 Medical 70/30 U-100 (two) Branch KWIKPEN) times 100 unit/mL daily (70-30) before injection breakfast and dinner. metFORMIN Yes [id number] 500mg Take 1 U nivers 500 mg 5-06 tablet by ity of tablet 00:00: mouth 2 00 (two) Medical times Branch daily with meals. atorvastati Yes [id number] 80mg Take 1 [facility] n 80 mg 5-06 tablet by ity of tablet 00:00: mouth at [place] 00 bedtime. Medical Branch gabapentin 0 Yes [id number] 100mg Take 1 [facility] 100 mg 5-06 capsule by ity of capsule 00:00: mouth 3 [place] (three) Medical times Branch daily. Insulin Yes [id number] Use as [facility] ers [place], 5-06 directed ity of Disposable, 00:00: [place] 30 gauge x 00 Medical 5/16" Ndle Branch Lancets 2020-0 Yes [id number] Use as Univ ers Misc 5-06 directed ity of 00:00: [place] 00 Medical Branch insulin NPH 0 Yes [id number] 14U inject 14 Univers and regular 5-06 Units ity of human 70-30 00:00: under the [place] 100 unit/mL 00 skin 2 Medica l (70-30) (two) Branch injection times daily before breakfast and dinner. Insulin 0 Yes [id number] 14U inject 14 U nivers NPH-Regular 5-06 Units ity of Human Rec 00:00: under the [place] as (HUMULIN 00 skin 2 Medical 70/30 U-100 (two) Branch KWIKPEN) times 100 unit/mL daily (70-30) before injection breakfast and dinner. metFORMIN Yes [id number] 500mg Take 1 U nivers 500 mg 5-06 tablet by ity of tablet 00:00: mouth 2 [place] (two) Medical times Branch daily with meals. atorvastati Yes [id number] 80mg Take 1 [facility] n 80 mg 5-06 tablet by ity of tablet 00:00: mouth at [place] 00 bedtime. Medical Branch gabapentin Yes [id number] 100mg Take 1 [facility] 100 mg 5-06 capsule by ity of capsule 00:00: mouth 3 [place] 00 (three) Medical times Branch daily. Insulin Yes [id number] Use as [facility] ers [place], 5-06 directed ity of Disposable, 00:00: [place] 30 gauge x 00 Medical 5/16" Ndle Branch Lancets Yes [id number] Use as Univ ers Misc 5-06 directed ity of 00:00: [place] 00 Medical Branch insulin NPH Yes [id number] 14U inject 14 Univers and regular 5-06 Units ity of human 70-30 00:00: under the [place] 100 unit/mL 00 skin 2 Medica l (70-30) (two) Branch injection times daily before breakfast and dinner. Insulin Yes [id number] 14U inject 14 U nivers NPH-Regular 5-06 Units ity of Human Rec 00:00: under the [place] as (HUMULIN 00 skin 2 Medical 70/30 U-100 (two) Branch KWIKPEN) times 100 unit/mL daily (70-30) before injection breakfast and dinner. metFORMIN Yes [id number] 500mg Take 1 U nivers 500 mg 5-06 tablet by ity of tablet 00:00: mouth 2 [place] 00 (two) Medical times Branch daily with meals. atorvastati 0 Yes [id number] 80mg Take 1 [facility] n 80 mg 5-06 tablet by ity of tablet 00:00: mouth at [place] 00 bedtime. Medical Branch gabapentin Yes [id number] 100mg Take 1 [facility] 100 mg 5-06 capsule by ity of capsule 00:00: mouth 3 00 (three) Medical times Branch daily. Insulin Yes [id number] Use as [facility] ers [place], 5-06 directed ity of Disposable, 00:00: [place] 30 gauge x 00 Medical 5/16" Ndle Branch Lancets Yes [id number] Use as Univ ers Misc 5-06 directed ity of 00:00: [place] 00 Medical Branch insulin NPH Yes [id number] 14U inject 14 Univers and regular 5-06 Units ity of human 70-30 00:00: under the [place] 100 unit/mL 00 skin 2 Medica l (70-30) (two) Branch injection times daily before breakfast and dinner. Insulin Yes [id number] 14U inject 14 U nivers NPH-Regular 5-06 Units ity of Human Rec 00:00: under the [place] as (HUMULIN 00 skin 2 Medical 70/30 U-100 (two) Branch KWIKPEN) times 100 unit/mL daily (70-30) before injection breakfast and dinner. metFORMIN Yes [id number] 500mg Take 1 U nivers 500 mg 5-06 tablet by ity of tablet 00:00: mouth 2 00 (two) Medical times Branch daily with meals. atorvastati Yes [id number] 80mg Take 1 [facility] n 80 mg 5-06 tablet by ity of tablet 00:00: mouth at [place] 00 bedtime. Medical Branch gabapentin Yes [id number] 100mg Take 1 [facility] 100 mg 5-06 capsule by ity of capsule 00:00: mouth 3 00 (three) Medical times Branch daily. Insulin Yes [id number] Use as [facility] ers [place], 5-06 directed ity of Disposable, 00:00: [place] 30 gauge x 00 Medical 5/16" Ndle Branch Lancets 0 Yes [id number] Use as Univ ers Misc 5-06 directed ity of 00:00: [place] 00 Medical Branch insulin NPH 0 Yes [id number] 14U inject 14 Univers and regular 5-06 Units ity of human 70-30 00:00: under the [place] 100 unit/mL 00 skin 2 Medica l (70-30) (two) Branch injection times daily before breakfast and dinner. Insulin Yes [id number] 14U inject 14 U nivers NPH-Regular 5-06 Units ity of Human Rec 00:00: under the [place] as (HUMULIN 00 skin 2 Medical 70/30 U-100 (two) Branch KWIKPEN) times 100 unit/mL daily (70-30) before injection breakfast and dinner. metFORMIN Yes [id number] 500mg Take 1 U nivers 500 mg 5-06 tablet by ity of tablet 00:00: mouth 2 [place] (two) Medical times Branch daily with meals. atorvastati Yes [id number] 80mg Take 1 [facility] n 80 mg 5-06 tablet by ity of tablet 00:00: mouth at [place] 00 bedtime. Medical Branch gabapentin Yes [id number] 100mg Take 1 [facility] 100 mg 5-06 capsule by ity of capsule 00:00: mouth 3 [place] 00 (three) Medical times Branch daily. Insulin Yes [id number] Use as [facility] ers [place], 5-06 directed ity of Disposable, 00:00: [place] 30 gauge x 00 Medical 5/16" Ndle Branch Lancets Yes [id number] Use as Univ ers Misc 5-06 directed ity of 00:00: [place] 00 Medical Branch insulin NPH Yes [id number] 14U inject 14 Univers and regular 5-06 Units ity of human 70-30 00:00: under the [place] 100 unit/mL 00 skin 2 Medica l (70-30) (two) Branch injection times daily before breakfast and dinner. Insulin Yes [id number] 14U inject 14 U nivers NPH-Regular 5-06 Units ity of Human Rec 00:00: under the [place] as (HUMULIN 00 skin 2 Medical 70/30 U-100 (two) Branch KWIKPEN) times 100 unit/mL daily (70-30) before injection breakfast and dinner. metFORMIN 0 Yes [id number] 500mg Take 1 U nivers 500 mg 5-06 tablet by ity of tablet 00:00: mouth 2 [place] 00 (two) Medical times Branch daily with meals. atorvastati 0 Yes [id number] 80mg Take 1 [facility] n 80 mg 5-06 tablet by ity of tablet 00:00: mouth at [place] 00 bedtime. Medical Branch gabapentin 0 Yes [id number] 100mg Take 1 [facility] 100 mg 5-06 capsule by ity of capsule 00:00: mouth 3 (three) Medical times Branch daily. Insulin 0 Yes [id number] Use as [facility] ers [place], 5-06 directed ity of Disposable, 00:00: [place] 30 gauge x 00 Medical 5/16" Ndle Branch Lancets 0 Yes [id number] Use as Univ ers Misc 5-06 directed ity of 00:00: [place] 00 Medical Branch insulin NPH 0 Yes [id number] 14U inject 14 [facility] and regular 5-06 Units ity of human 70-30 00:00: under the [place] 100 unit/mL 00 skin 2 Medica l (70-30) (two) Branch injection times daily before breakfast and dinner. Insulin Yes [id number] 14U inject 14 U nivers NPH-Regular 5-06 Units ity of Human Rec 00:00: under the [place] as (HUMULIN 00 skin 2 Medical 70/30 U-100 (two) Branch KWIKPEN) times 100 unit/mL daily (70-30) before injection breakfast and dinner. metFORMIN Yes [id number] 500mg Take 1 U nivers 500 mg 5-06 tablet by ity of tablet 00:00: mouth 2 [place] (two) Medical times Branch daily with meals. atorvastati 0 Yes [id number] 80mg Take 1 [facility] n 80 mg 5-06 tablet by ity of tablet 00:00: mouth at [place] 00 bedtime. Medical Branch gabapentin 0 Yes [id number] 100mg Take 1 [facility] 100 mg 5-06 capsule by ity of capsule 00:00: mouth 3 [place] (three) Medical times Branch daily. Insulin 0 Yes [id number] Use as [facility] ers [place], 5-06 directed ity of Disposable, 00:00: [place] 30 gauge x 00 Medical 5/16" Ndle Branch Lancets 2020-0 Yes [id number] Use as Univ ers Misc 5-06 directed ity of 00:00: [place] 00 Medical Branch insulin NPH 2020-0 Yes [id number] 14U inject 14 [facility] and regular 5-06 Units ity of human 70-30 00:00: under the [place] 100 unit/mL 00 skin 2 Medica l (70-30) (two) Branch injection times daily before breakfast and dinner. Insulin Yes [id number] 14U inject 14 U nivers NPH-Regular 5-06 Units ity of Human Rec 00:00: under the [place] as (HUMULIN 00 skin 2 Medical 70/30 U-100 (two) Branch KWIKPEN) times 100 unit/mL daily (70-30) before injection breakfast and dinner. metFORMIN Yes [id number] 500mg Take 1 U nivers 500 mg 5-06 tablet by ity of tablet 00:00: mouth 2 [place] (two) Medical times Branch daily with meals. atorvastati Yes [id number] 80mg Take 1 [facility] n 80 mg 5-06 tablet by ity of tablet 00:00: mouth at [place] 00 bedtime. Medical Branch gabapentin Yes [id number] 100mg Take 1 [facility] 100 mg 5-06 capsule by ity of capsule 00:00: mouth 3 [place] 00 (three) Medical times Branch daily. Insulin Yes [id number] Use as [facility] ers [place], 5-06 directed ity of Disposable, 00:00: [place] 30 gauge x 00 Medical 5/16" Ndle Branch Lancets Yes [id number] Use as Univ ers Misc 5-06 directed ity of 00:00: [place] 00 Medical Branch insulin NPH Yes [id number] 14U inject 14 [facility] and regular 5-06 Units ity of human 70-30 00:00: under the [place] 100 unit/mL 00 skin 2 Medica l (70-30) (two) Branch injection times daily before breakfast and dinner. Insulin Yes [id number] 14U inject 14 U nivers NPH-Regular 5-06 Units ity of Human Rec 00:00: under the [place] as (HUMULIN 00 skin 2 Medical 70/30 U-100 (two) Branch KWIKPEN) times 100 unit/mL daily (70-30) before injection breakfast and dinner. metFORMIN Yes [id number] 500mg Take 1 U nivers 500 mg 5-06 tablet by ity of tablet 00:00: mouth 2 [place] (two) Medical times Branch daily with meals. atorvastati Yes [id number] 80mg Take 1 [facility] n 80 mg 5-06 tablet by ity of tablet 00:00: mouth at [place] 00 bedtime. Medical Branch gabapentin Yes [id number] 100mg Take 1 [facility] 100 mg 5-06 capsule by ity of capsule 00:00: mouth 3 (three) Medical times Branch daily. Insulin Yes [id number] Use as [facility] ers [place], 5- directed ity of Disposable, 00:00: [place] 30 gauge x 00 Medical 08/28" Ndle Branch Lancets Yes [id number] Use as Univ ers Misc - directed ity of 00:00: [place] 00 Medical Branch insulin NPH Yes [id number] 14U inject 14 [facility] and regular 5-06 Units ity of human 70-30 00:00: under the [place] 100 unit/mL 00 skin 2 Medica l (70-30) (two) Branch injection times daily before breakfast and dinner. metFORMIN Yes [id number] 500mg Take 1 U nivers 500 mg 5-06 tablet by ity of tablet 00:00: mouth 2 (two) Medical times Branch daily with meals. atorvastati Yes [id number] 80mg Take 1 [facility] n 80 mg 5-06 tablet by ity of tablet 00:00: mouth at [place] 00 bedtime. Medical Branch gabapentin Yes [id number] 100mg Take 1 [facility] 100 mg 5-06 capsule by ity of capsule 00:00: mouth 3 (three) Medical times Branch daily. insulin NPH Yes [id number] 14U inject 14 [facility] and regular 5-06 Units ity of human 70-30 00:00: under the [place] 100 unit/mL 00 skin 2 Medica l (70-30) (two) Branch injection times daily before breakfast and dinner. metFORMIN Yes [id number] 500mg Take 1 U nivers 500 mg 5-06 tablet by ity of tablet 00:00: mouth 2 (two) Medical times Branch daily with meals. atorvastati Yes [id number] 80mg Take 1 Univers n 80 mg 5-06 tablet by ity of tablet 00:00: mouth at [place] 00 bedtime. Medical Branch gabapentin Yes [id number] 100mg Take 1 [facility] 100 mg 5-06 capsule by ity of capsule 00:00: mouth 3 (three) Medical times Branch daily. insulin NPH 2020-0 Yes [id number] 14U inject 14 [facility] and regular 5-06 Units ity of human 70-30 00:00: under the [place] 100 unit/mL 00 skin 2 Medica l (70-30) (two) Branch injection times daily before breakfast and dinner. metFORMIN 2020-0 Yes [id number] 500mg Take 1 U nivers 500 mg 5-06 tablet by ity of tablet 00:00: mouth 2 (two) Medical times Branch daily with meals. atorvastati Yes [id number] 80mg Take 1 [facility] n 80 mg 5-06 tablet by ity of tablet 00:00: mouth at [place] 00 bedtime. Medical Branch gabapentin 0 Yes [id number] 100mg Take 1 [facility] 100 mg 5-06 capsule by ity of capsule 00:00: mouth 3 (three) Medical times Branch daily. insulin NPH 2020-0 Yes [id number] 14U inject 14 [facility] and regular 5-06 Units ity of human 70-30 00:00: under the [place] 100 unit/mL 00 skin 2 Medica l (70-30) (two) Branch injection times daily before breakfast and dinner. metFORMIN 0 Yes [id number] 500mg Take 1 U nivers 500 mg 5-06 tablet by ity of tablet 00:00: mouth 2 (two) Medical times Branch daily with meals. atorvastati 0 Yes [id number] 80mg Take 1 [facility] n 80 mg 5-06 tablet by ity of tablet 00:00: mouth at [place] 00 bedtime. Medical Branch gabapentin 2020-0 Yes [id number] 100mg Take 1 [facility] 100 mg 5-06 capsule by ity of capsule 00:00: mouth 3 (three) Medical times Branch daily. insulin NPH 2020-0 Yes [id number] 14U inject 14 [facility] and regular 5-06 Units ity of human 70-30 00:00: under the [place] 100 unit/mL 00 skin 2 Medica l (70-30) (two) Branch injection times daily before breakfast and dinner. metFORMIN 2020-0 Yes [id number] 500mg Take 1 U nivers 500 mg 5-06 tablet by ity of tablet 00:00: mouth 2 (two) Medical times Branch daily with meals. atorvastati 0 Yes [id number] 80mg Take 1 [facility] n 80 mg 5-06 tablet by ity of tablet 00:00: mouth at [place] 00 bedtime. Medical Branch gabapentin Yes [id number] 100mg Take 1 [facility] 100 mg 5-06 capsule by ity of capsule 00:00: mouth 3 00 (three) Medical times Branch daily. insulin NPH Yes [id number] 14U inject 14 [facility] and regular 5-06 Units ity of human 70-30 00:00: under the [place] 100 unit/mL 00 skin 2 Medica l (70-30) (two) Branch injection times daily before breakfast and dinner. metFORMIN Yes [id number] 500mg Take 1 U nivers 500 mg 5-06 tablet by ity of tablet 00:00: mouth 2 [place] (two) Medical times Branch daily with meals. atorvastati Yes [id number] 80mg Take 1 [facility] n 80 mg 5-06 tablet by ity of tablet 00:00: mouth at [place] [address] bedtime. Medical Branch gabapentin Yes [id number] 100mg Take 1 [facility] 100 mg 5-06 capsule by ity of capsule 00:00: mouth 3 [place] (three) Medical times Branch daily. insulin NPH Yes [id number] 14U inject 14 [facility] and regular 5-06 Units ity of human 70-30 00:00: under the [place] 100 unit/mL 00 skin 2 Medica l (70-30) (two) Branch injection times daily before breakfast and dinner. gabapentin 3- No [id number] 100mg Take 1 [facility] 100 mg 5-06 02-10 capsule by ity of capsule 00:00: 00:00 mouth 3 [place] 00 :00 (three) Medical times Branch daily. gabapentin 2020-3- No [id number] 100mg Take 1 [facility] 100 mg 5-06 02-10 capsule by ity of capsule 00:00: 00:00 mouth 3 [place] 00 :00 (three) Medical times Branch daily. Insulin 2022- No [id number] 14U inject 14 [facility] NPH-Regular 5-06 01-13 Units ity of Human Rec 00:00: 00:00 under the [place] (HUMULIN 00 :00 skin 2 Medical 70/30 U-100 (two) Branch KWIKPEN) times 100 unit/mL daily (70-30) before injection breakfast and dinner. Insulin 2022- No [id number] Use as Uni vers [place], 08-18 directed ity of Disposable, 00:00: 00:00 [place] 30 gauge x 00 :00 Medical 5/16" Ndle Branch Lancets 2022- No [id number] Use as Uni vers Misc 08-18 directed ity of 00:00: 00:00 [place] 00 :00 Medical Branch Insulin 2020-0 2022- No [id number] 14U inject 14 [facility] NPH-Regular 08-18 Units ity of Human Rec 00:00: 00:00 under the [place] (HUMULIN 00 :00 skin 2 Medical 70/30 U-100 (two) Branch KWIKPEN) times 100 unit/mL daily (70-30) before injection breakfast and dinner. Insulin 2022- No [id number] Use as Uni vers [place], 08-18 directed ity of Disposable, 00:00: 00:00 [place] 30 gauge x 00 :00 Medical /16" Ndle Branch Lancets 2022- No [id number] Use as Uni vers Misc 08-18 directed ity of 00:00: 00:00 [place] 00 :00 Medical Branch Gabapentin Gabapentin 202-0 No 1{capsu TID Gabapentin 300 MG 300 MG 1-11 le} 300 MG 00:00: 00 Gabapentin Gabapentin 202-0 No 1{capsu TID Gabapentin 300 MG 300 MG 1-11 le} 300 MG 00:00: 00 Gabapentin Gabapentin 2021-0 No 1{capsu TID Gabapentin 300 MG 300 MG 1-11 le} 300 MG 00:00: 00 Gabapentin Gabapentin 202-0 No 1{capsu TID Gabapentin 300 MG 300 MG 1-11 le} 300 MG 00:00: 00 Gabapentin Gabapentin 202-0 No 1{capsu TID Gabapentin 300 MG 300 MG 1-11 le} 300 MG 00:00: 00 carvediloL 2020- Yes [id number] 25mg Take 1 U nivers 25 mg 1-24 tablet by ity of tablet 00:00: mouth (two) Medical times Branch daily with meals. carvediloL 2019-04 Yes [id number] 25mg Take 1 U nivers 25 mg 1-24 tablet by ity of tablet 00:00: mouth (two) Medical times Branch daily with meals. carvediloL 2019-04 Yes [id number] 25mg Take 1 U nivers 25 mg 1-24 tablet by ity of tablet 00:00: mouth (two) Medical times Branch daily with meals. carvediloL 2019-04 Yes [id number] 25mg Take 1 U nivers 25 mg 1-24 tablet by ity of tablet 00:00: mouth (two) Medical times Branch daily with meals. carvediloL 2019-04 Yes [id number] 25mg Take 1 U nivers 25 mg 1-24 tablet by ity of tablet 00:00: mouth (two) Medical times Branch daily with meals. carvediloL 2019-04 Yes [id number] 25mg Take 1 U nivers 25 mg 1-24 tablet by ity of tablet 00:00: mouth (two) Medical times Branch daily with meals. carvediloL 2019-04 Yes [id number] 25mg Take 1 U nivers 25 mg 1-24 tablet by ity of tablet 00:00: mouth (two) Medical times Branch daily with meals. carvediloL 2019-04 Yes [id number] 25mg Take 1 U nivers 25 mg 1-24 tablet by ity of tablet 00:00: mouth (two) Medical times Branch daily with meals. carvediloL 2019-04 Yes [id number] 25mg Take 1 U nivers 25 mg 1-24 tablet by ity of tablet 00:00: mouth (two) Medical times Branch daily with meals. carvediloL 2019-04 Yes [id number] 25mg Take 1 U nivers 25 mg 1-24 tablet by ity of tablet 00:00: mouth (two) Medical times Branch daily with meals. carvediloL 2019-04 Yes [id number] 25mg Take 1 U nivers 25 mg 1-24 tablet by ity of tablet 00:00: mouth (two) Medical times Branch daily with meals. carvediloL 2019-04 Yes [id number] 25mg Take 1 U nivers 25 mg 1-24 tablet by ity of tablet 00:00: mouth (two) Medical times Branch daily with meals. carvediloL 2019- Yes [id number] 25mg Take 1 U nivers 25 mg 1-24 tablet by ity of tablet 00:00: mouth (two) Medical times Branch daily with meals. carvediloL 2019-04 Yes [id number] 25mg Take 1 U nivers 25 mg 1-24 tablet by ity of tablet 00:00: mouth (two) Medical times Branch daily with meals. carvediloL 2019-04 Yes [id number] 25mg Take 1 U nivers 25 mg 1-24 tablet by ity of tablet 00:00: mouth (two) Medical times Branch daily with meals. carvediloL 2019-04 Yes [id number] 25mg Take 1 U nivers 25 mg 1-24 tablet by ity of tablet 00:00: mouth (two) Medical times Branch daily with meals. carvediloL 2019-04 Yes [id number] 25mg Take 1 U nivers 25 mg 1-24 tablet by ity of tablet 00:00: mouth (two) Medical times Branch daily with meals. carvediloL 2019-04 Yes [id number] 25mg Take 1 U nivers 25 mg 1-24 tablet by ity of tablet 00:00: mouth (two) Medical times Branch daily with meals. carvediloL 2019-04 Yes [id number] 25mg Take 1 U nivers 25 mg 1-24 tablet by ity of tablet 00:00: mouth (two) Medical times Branch daily with meals. carvediloL 2019-04 Yes [id number] 25mg Take 1 U nivers 25 mg 1-24 tablet by ity of tablet 00:00: mouth (two) Medical times Branch daily with meals. carvediloL 2019-04 Yes [id number] 25mg Take 1 U nivers 25 mg 1-24 tablet by ity of tablet 00:00: mouth (two) Medical times Branch daily with meals. carvediloL 2019-04 Yes [id number] 25mg Take 1 U nivers 25 mg 1-24 tablet by ity of tablet 00:00: mouth (two) Medical times Branch daily with meals. carvediloL 2019-04 Yes [id number] 25mg Take 1 U nivers 25 mg 1-24 tablet by ity of tablet 00:00: mouth 2 (two) Medical times Branch daily with meals. carvediloL 2019-04 Yes [id number] 25mg Take 1 U nivers 25 mg 1-24 tablet by ity of tablet 00:00: mouth 2 (two) Medical times Branch daily with meals. hydroCHLORO 2019-04- No [id number] 25mg Take 1 [facility] thiazide 25 1-24 10-11 tablet by it y of mg tablet 00:00: 00:00 mouth [place] 00 :00 daily. Medical Branch telmisartan 2019-04- No 80mg Take 1 Uni vers 80 mg 1-24 05-04 tablet by ity of tablet 00:00: 00:00 mouth [place] 00 :00 daily. Medical Branch hydroCHLORO 2019-04- No [id number] 25mg Take 1 [facility] thiazide 25 0-22 11-24 tablet by it y of mg tablet 00:00: 00:00 mouth [place] 00 :00 daily. Medical Branch carvediloL 2019-04- No [id number] 25mg Take 1 [facility] 25 mg 0-22 11-24 tablet by ity of tablet 00:00: 00:00 mouth 2 [place] 00 :00 (two) Medical times Branch daily with meals. Albuterol Albuterol No 2{puffs Albuterol Sulfate HFA Sulfate HFA 9-30 } Sulfate 108 (90 108 (90 00:00: HFA 108 Base) Base) 00 (90 Base) MCG/ACT MCG/ACT MCG/ACT Albuterol Albuterol 2019- No 2{puffs Albuterol Sulfate HFA Sulfate HFA 9-30 } Sulfate 108 (90 108 (90 00:00: HFA 108 Base) Base) 00 (90 Base) MCG/ACT MCG/ACT MCG/ACT Albuterol Albuterol 2019- No 2{puffs Albuterol Sulfate HFA Sulfate HFA 9-30 } Sulfate 108 (90 108 (90 00:00: HFA 108 Base) Base) 00 (90 Base) MCG/ACT MCG/ACT MCG/ACT Albuterol Albuterol 2019- No 2{puffs Albuterol Sulfate HFA Sulfate HFA 9-30 } Sulfate 108 (90 108 (90 00:00: HFA 108 Base) Base) 00 (90 Base) MCG/ACT MCG/ACT MCG/ACT Albuterol Albuterol 2019-0 No 2{puffs Albuterol Sulfate HFA Sulfate HFA 9-30 } Sulfate 108 (90 108 (90 00:00: HFA 108 Base) Base) 00 (90 Base) MCG/ACT MCG/ACT MCG/ACT Albuterol Albuterol 2020-0 No 2{puffs Albuterol Sulfate HFA Sulfate HFA 9-30 } Sulfate 108 (90 108 (90 00:00: HFA 108 Base) Base) 00 (90 Base) MCG/ACT MCG/ACT MCG/ACT Albuterol Albuterol 2019-0 No 2{puffs Albuterol Sulfate HFA Sulfate HFA 9-30 } Sulfate 108 (90 108 (90 00:00: HFA 108 Base) Base) 00 (90 Base) MCG/ACT MCG/ACT MCG/ACT Rosuvastati Rosuvastati 2019-0 No 1{table QD Rosuvastat n Calcium n Calcium 9-24 t} in Calcium 10 MG 10 MG 00:00: 10 MG 00 Rosuvastati Rosuvastati 2019-0 No 1{table QD Rosuvastat n Calcium n Calcium 9-24 t} in Calcium 10 MG 10 MG 00:00: 10 MG 00 Rosuvastati Rosuvastati 2019-0 No 1{table QD Rosuvastat n Calcium n Calcium 9-24 t} in Calcium 10 MG 10 MG 00:00: 10 MG 00 Rosuvastati Rosuvastati 2019-0 No 1{table QD Rosuvastat n Calcium n Calcium 9-24 t} in Calcium 10 MG 10 MG 00:00: 10 MG 00 Rosuvastati Rosuvastati 2019-0 No 1{table QD Rosuvastat n Calcium n Calcium 9-24 t} in Calcium 10 MG 10 MG 00:00: 10 MG 00 Rosuvastati Rosuvastati 2019-0 No 1{table QD Rosuvastat n Calcium n Calcium 9-24 t} in Calcium 10 MG 10 MG 00:00: 10 MG 00 Rosuvastati Rosuvastati 2019-0 No 1{table QD Rosuvastat n Calcium n Calcium 9-24 t} in Calcium 10 MG 10 MG 00:00: 10 MG 00 Zule[place] Kenalog 2017-0 No 40mg Common (Triamcinol (Triamcinol 4-06 S pirit one) one) 00:00: - [facility] Zulema Kenalog 2018-0 No 40mg Common (Triamcinol (Triamcinol 4-06 S pirit one) one) 00:00: - [facility] Zulema Kenalog 2017-0 No 40mg Common (Triamcinol (Triamcinol 4-06 S pirit one) one) 00:00: - [facility] Zulema Kenruben 2017-0 No 40mg Common (Triamcinol (Triamcinol 4-06 S pirit one) one) 00:00: - [facility] Zulema Kenruben 2017-0 No 40mg Common (Triamcinol (Triamcinol 4-06 S pirit one) one) 00:00: - [facility] Flonase 50 Flonase 50 2017-0 No 2{spray QD Flonase 50 MCG/ACT MCG/ACT -06 _in_eac MCG/ACT 00:00: h_nostr 00 il} Zulema Poole 2017-0 No 40mg Common (Triamcinol (Triamcinol 4-06 S pirit one) one) 00:00: - [facility] Flonase Flonase 2017-0 Yes Na Rangel 2 spray in Common - each Spirit 00:00: nostril - [facility] Albuterol Albuterol 0 Yes Na Rangel 2 puffs as Common Sulfate Sulfate 4-06 needed Spirit 00:00: - [facility] Zulema Kenalog 2017-0 No 40mg Common (Triamcinol (Triamcinol 4-06 S pirit one) one) 00:00: - [facility] Zulema Kenalog 2017-0 No 40mg Common (Triamcinol (Triamcinol 4-06 S pirit one) one) 00:00: - [facility] Albuterol Albuterol 2017-0 No 2{puffs Albuterol Sulfate 108 Sulfate 108 4-06 _as_nee Sulfate (90 Base) (90 Base) 00:00: ded} 108 (90 MCG/ACT MCG/ACT 00 Base) MCG/ACT Flonase 50 Flonase 50 No 2{spray QD Flonase 50 MCG/ACT MCG/ACT 4-06 _in_eac MCG/ACT 00:00: h_nostr 00 il} Albuterol Albuterol No 2{puffs Albuterol Sulfate 108 Sulfate 108 4-06 _as_nee Sulfate (90 Base) (90 Base) 00:00: ded} 108 (90 MCG/ACT MCG/ACT 00 Base) MCG/ACT Albuterol Albuterol No 2{puffs Albuterol Sulfate 108 Sulfate 108 4-06 _as_nee Sulfate (90 Base) (90 Base) 00:00: ded} 108 (90 MCG/ACT MCG/ACT 00 Base) MCG/ACT Flonase 50 Flonase 50 No 2{spray QD Flonase 50 MCG/ACT MCG/ACT 4-06 _in_eac MCG/ACT 00:00: h_nostr 00 il} Albuterol Albuterol No 2{puffs Albuterol Sulfate 108 Sulfate 108 4-06 _as_nee Sulfate (90 Base) (90 Base) 00:00: ded} 108 (90 MCG/ACT MCG/ACT 00 Base) MCG/ACT Flonase 50 Flonase 50 No 2{spray QD Flonase 50 MCG/ACT MCG/ACT 4-06 _in_eac MCG/ACT 00:00: h_nostr 00 il} Albuterol Albuterol No 2{puffs Albuterol Sulfate 108 Sulfate 108 4-06 _as_nee Sulfate (90 Base) (90 Base) 00:00: ded} 108 (90 MCG/ACT MCG/ACT 00 Base) MCG/ACT Flonase 50 Flonase 50 No 2{spray QD Flonase 50 MCG/ACT MCG/ACT 4-06 _in_eac MCG/ACT 00:00: h_nostr 00 il} Flonase 50 Flonase 50 No 2{spray QD Flonase 50 MCG/ACT MCG/ACT 4-06 _in_eac MCG/ACT 00:00: h_nostr 00 il} Albuterol Albuterol 2018-0 No 2{puffs Albuterol Sulfate 108 Sulfate 108 4-06 _as_nee Sulfate (90 Base) (90 Base) 00:00: ded} 108 (90 MCG/ACT MCG/ACT 00 Base) MCG/ACT Kenalog Kenalog 2018-0 No 40mg Common (Triamcinol (Triamcinol 4-06 S pirit one) one) 00:00: - [facility] Flonase 50 Flonase 50 2018-0 No 2{spray QD Flonase 50 MCG/ACT MCG/ACT 4-06 _in_eac MCG/ACT 00:00: h_nostr 00 il} Albuterol Albuterol 2017-0 No 2{puffs Albuterol Sulfate 108 Sulfate 108 4-06 _as_nee Sulfate (90 Base) (90 Base) 00:00: ded} 108 (90 MCG/ACT MCG/ACT 00 Base) MCG/ACT Kenalog Kenalog 2017-0 No 40mg Common (Triamcinol (Triamcinol 4-06 S pirit one) one) 00:00: - [facility] Kenalog Kenalog 2018-0 No 40mg Common (Triamcinol (Triamcinol 4-06 S pirit one) one) 00:00: - [facility] Kenalog Kenalog 2018-0 No 40mg Common (Triamcinol (Triamcinol 4-06 S pirit one) one) 00:00: - [facility] Kenalog Kenalog 2018-0 No 40mg Common (Triamcinol (Triamcinol 4-06 S pirit one) one) 00:00: - [facility] Kenalog Kenalog 2018-0 No 40mg Common (Triamcinol (Triamcinol 4-06 S pirit one) one) 00:00: - [facility] Kenalog Kenalog 2018-0 No 40mg Common (Triamcinol (Triamcinol 4-06 S pirit one) one) 00:00: - [facility] Kenalog Kenalog 2018-0 No 40mg Common (Triamcinol (Triamcinol 4-06 S pirit one) one) 00:00: - [facility] Zulema Poole No 40mg Common (Triamcinol (Triamcinol 4-06 S pirit one) one) 00:00: - [facility] Zulema Poole No 40mg Common (Triamcinol (Triamcinol 4-06 S pirit one) one) 00:00: - [facility] Zulema Poole No 40mg Common (Triamcinol (Triamcinol 4-06 S pirit one) one) 00:00: - [facility] Zulema Poole No 40mg Common (Triamcinol (Triamcinol 4-06 S pirit one) one) 00:00: - [facility] Levothyroxi Levothyroxi Yes Na Rangel 1 tablet Common ne Sodium ne Sodium on an Spir it empty - [facility] stomach in [facility] Wells[facility] Yes Na Rangel 1 tablet Comm on [facility] Nasonex Nasonex Yes Na Rangel 2 sprays Co mmon in each [facility] nostril [facility] Telmisartan Telmisartan Yes Na Rangel 1 tablet Common [facility] Zyrtec Zyrtec Yes Na Rangel 1 tablet Comm on Allergy Allergy [facility] ProAir HFA ProAir HFA Yes Na Rangel 2 puffs as Common needed [facility] Celexa Celexa Yes Na Rangel 1 tablet Comm on [facility] Vitamin D Vitamin D Yes Na Rangel 1 capsule Common (Ergocalcif (Ergocalcif S pirit bruna) bruna) [facility] Singulair Singulair Yes Na Rangel 1 tablet Common in the [facility] evening [facility] Gabapentin Gabapentin Yes Na Rangel 1 capsule Common [facility] Cipro Cipro Yes Na Rangel 1 tablet Common [facility] Fosamax Fosamax Yes Na Rangel 1 tablet Co mmon [facility] Aspirin Aspirin Yes Na Rangel 1 tablet Co mmon Adult Low Adult Low Spiri t Dose Dose - [facility] Voltaren Voltaren Yes Na Rangel not Comm on defined [facility] Coreg Coreg Yes Na Rangel 1 tablet Common [facility] Ultram Ultram Yes Na Rangel 1 tablet Comm on as needed [facility] Ferrous Ferrous No 1{table QD Ferrous Sulfate 325 Sulfate 325 t} Sulfate (65 Fe) MG (65 Fe) MG 325 (65 Fe) MG Triamterene Triamterene No 1{capsu QD Triamteren 50 MG 50 MG le} e 50 MG Pantoprazol Pantoprazol No 1{table QD Pantoprazo e Sodium 40 e Sodium 40 t} le Sodium MG MG 40 MG Levothyroxi Levothyroxi No QD Levothyrox ne Sodium ne Sodium ine Sodium 75 MCG 75 MCG 75 MCG Vitamin D3 Vitamin D3 No Vitamin D3 metFORMIN metFORMIN No 1{table BID metFORMIN HCl 1000 MG HCl 1000 MG t_with_ HCl 1000 a_meal} MG Triamterene Triamterene No Triamteren -HCTZ -HCTZ e-HCTZ Gabapentin Gabapentin No Gabapentin 300 MG 300 MG 300 MG Tylenol Tylenol No Tylenol Arthritis Arthritis Arthritis Pain Pain Pain Magnesium Magnesium No Magnesium Fosamax 70 Fosamax 70 No 1{table Fosamax 70 MG MG t} MG Carvedilol Carvedilol No Carvedilol 25 MG 25 MG 25 MG Triamterene Triamterene No 1{table QD Triamteren -HCTZ -HCTZ t_in_th e-HCTZ 37.5-25 MG 37.5-25 MG e_morni 37.5-25 MG ng} Coreg 12.5 Coreg 12.5 No 1{table BID Coreg 12.5 MG MG t} MG Gabapentin Gabapentin No 1{capsu TID Gabapentin 300 MG 300 MG le} 300 MG Triamterene Triamterene No 1{table QD Triamteren -HCTZ -HCTZ t_in_th e-HCTZ 37.5-25 MG 37.5-25 MG e_morni 37.5-25 MG ng} Levothyroxi Levothyroxi No QD Levothyrox ne Sodium ne Sodium ine Sodium 75 MCG 75 MCG 75 MCG Diclofenac Diclofenac No TID Diclofenac Sodium 1 % Sodium 1 % Sodium 1 % Triamterene Triamterene No 1{capsu QD Triamteren 50 MG 50 MG le} e 50 MG Atorvastati Atorvastati No 1{table QD Atorvastat n Calcium n Calcium t} in Calcium 80 MG 80 MG 80 MG [place] 3 [place] 3 No 1{capsu QD [place] 3 1000 MG 1000 MG le} 1000 MG Ferrous Ferrous No 1{table QD Ferrous Sulfate 325 Sulfate 325 t} Sulfate (65 Fe) MG (65 Fe) MG 325 (65 Fe) MG Pantoprazol Pantoprazol No 1{table QD Pantoprazo e Sodium 40 e Sodium 40 t} le Sodium MG MG 40 MG Gabapentin Gabapentin No Gabapentin 300 MG 300 MG 300 MG Fosamax 70 Fosamax 70 No 1{table Fosamax 70 MG MG t} MG Tylenol Tylenol No Tylenol Arthritis Arthritis Arthritis Pain Pain Pain Carvedilol Carvedilol No Carvedilol 25 MG 25 MG 25 MG Vitamin D3 Vitamin D3 No Vitamin D3 Magnesium Magnesium No Magnesium metFORMIN metFORMIN No 1{table BID metFORMIN HCl 1000 MG HCl 1000 MG t_with_ HCl 1000 a_meal} MG Atorvastati Atorvastati No 1{table QD Atorvastat n Calcium n Calcium t} in Calcium 80 MG 80 MG 80 MG Triamterene Triamterene No Triamteren -HCTZ -HCTZ e-HCTZ Levothyroxi Levothyroxi No Levothyrox ne Sodium ne Sodium ine Sodium 50 MCG 50 MCG 50 MCG Carvedilol Carvedilol No 1{table BID Carvedilol 25 MG 25 MG t_with_ 25 MG food} Vitamin D3 Vitamin D3 No 1{capsu QD Vitamin D3 50 MCG 50 MCG le} 50 MCG (1999 UT) (1999 UT) (1999) ProAir HFA ProAir HFA No 2{puffs QID ProAir HFA 108 (90 108 (90 _as_nee 108 (90 Base) Base) ded} Base) MCG/ACT MCG/ACT MCG/ACT NovoLOG Mix NovoLOG Mix No NovoLOG 70/30 70/30 Mix 70/30 (70-30) 100 (70-30) 100 (70-30) UNIT/ML UNIT/ML 100 UNIT/ML Voltaren 1 Voltaren 1 No Voltaren 1 % % % NovoLIN NovoLIN No NovoLIN 70/30 70/30 70/30 (70-30) 100 (70-30) 100 (70-30) UNIT/ML UNIT/ML 100 UNIT/ML Levothyroxi Levothyroxi No QD Levothyrox ne Sodium ne Sodium ine Sodium 50 MCG 50 MCG 50 MCG Singulair Singulair No 1{table QD Singulair 10 MG 10 MG t_in_th 10 MG e_eveni ng} Gabapentin Gabapentin No 1{capsu TID Gabapentin 100 MG 100 MG le} 100 MG Cyclobenzap Cyclobenzap No 1{table BID Cyclobenza rine HCl 10 rine HCl 10 t_as_ne ranjeet HCl MG MG eded} 10 MG Cozaar 50 Cozaar 50 No 1{table QD Cozaar 50 MG MG t} MG Diclofenac Diclofenac No TID Diclofenac Sodium 1 % Sodium 1 % Sodium 1 % Nasonex 50 Nasonex 50 No 2{spray QD Nasonex 50 MCG/ACT MCG/ACT s_in_ea MCG/ACT ch_nost ril} Gabapentin Gabapentin No 1{capsu TID Gabapentin 300 MG 300 MG le} 300 MG metFORMIN metFORMIN No 1{table BID metFORMIN HCl 1000 MG HCl 1000 MG t_with_ HCl 1000 a_meal} MG Vitamin D Vitamin D No 1{capsu Vitamin D (Ergocalcif (Ergocalcif le} (Ergocalci bruna) [id number] bruna) 74546 ferol) UNIT UNIT 17544 UNIT Ultram 50 Ultram 50 No 1{table QID Ultram 50 MG MG t_as_ne MG eded} Aspirin Aspirin No 1{table QD Aspirin Adult Low Adult Low t} Adult Low Dose 81 MG Dose 81 MG Dose 81 MG ZyrTEC ZyrTEC No 1{table QD ZyrTEC Allergy 10 Allergy 10 t} Allergy 10 MG MG MG predniSONE predniSONE No QD predniSONE 20 MG 20 MG 20 MG Cipro 500 Cipro 500 No 1{table BID Cipro 500 MG MG t} MG hydroCHLORO hydroCHLORO No 1{table QD hydroCHLOR thiazide 25 thiazide 25 t_in_th Othiazide MG MG e_morni 25 MG ng} metFORMIN metFORMIN No 1{table BID metFORMIN HCl 500 MG HCl 500 MG t_with_ HCl 500 MG a_meal} Coreg 12.5 Coreg 12.5 No 1{table BID Coreg 12.5 MG MG t} MG Fosamax 70 Fosamax 70 No 1{table Fosamax 70 MG MG t} MG Levothyroxi Levothyroxi No QD Levothyrox ne Sodium ne Sodium ine Sodium 50 MCG 50 MCG 50 MCG [place] 3 [place] 3 No 1{capsu QD [place] 3 1000 MG 1000 MG le} 1000 MG Atorvastati Atorvastati No 1{table QD Atorvastat n Calcium n Calcium t} in Calcium 80 MG 80 MG 80 MG Levothyroxi Levothyroxi No Levothyrox ne Sodium ne Sodium ine Sodium 50 MCG 50 MCG 50 MCG Telmisartan Telmisartan No BID Telmisarta 80 MG 80 MG n 80 MG Carvedilol Carvedilol No 1{table BID Carvedilol 25 MG 25 MG t_with_ 25 MG food} Vitamin D3 Vitamin D3 No 1{capsu QD Vitamin D3 50 MCG 50 MCG le} 50 MCG (1999 UT) (1999 UT) (1999) ProAir HFA ProAir HFA No 2{puffs QID ProAir HFA 108 (90 108 (90 _as_nee 108 (90 Base) Base) ded} Base) MCG/ACT MCG/ACT MCG/ACT NovoLOG Mix NovoLOG Mix No NovoLOG 70/30 70/30 Mix 70/30 (70-30) 100 (70-30) 100 (70-30) UNIT/ML UNIT/ML 100 UNIT/ML Voltaren 1 Voltaren 1 No Voltaren 1 % % % NovoLIN NovoLIN No NovoLIN 70/30 70/30 70/30 (70-30) 100 (70-30) 100 (70-30) UNIT/ML UNIT/ML 100 UNIT/ML Singulair Singulair No 1{table QD Singulair 10 MG 10 MG t_in_th 10 MG e_eveni ng} Gabapentin Gabapentin No 1{capsu TID Gabapentin 100 MG 100 MG le} 100 MG Cyclobenzap Cyclobenzap No 1{table BID Cyclobenza rine HCl 10 rine HCl 10 t_as_ne ranjeet HCl MG MG eded} 10 MG Cozaar 50 Cozaar 50 No 1{table QD Cozaar 50 MG MG t} MG Diclofenac Diclofenac No TID Diclofenac Sodium 1 % Sodium 1 % Sodium 1 % Nasonex 50 Nasonex 50 No 2{spray QD Nasonex 50 MCG/ACT MCG/ACT s_in_ea MCG/ACT ch_nost ril} Gabapentin Gabapentin No 1{capsu TID Gabapentin 300 MG 300 MG le} 300 MG metFORMIN metFORMIN No 1{table BID metFORMIN HCl 1000 MG HCl 1000 MG t_with_ HCl 1000 a_meal} MG Vitamin D Vitamin D No 1{capsu Vitamin D (Ergocalcif (Ergocalcif le} (Ergocalci bruna) 64799 bruna) 92725 ferol) UNIT UNIT 05661 UNIT Ultram 50 Ultram 50 No 1{table QID Ultram 50 MG MG t_as_ne MG eded} Aspirin Aspirin No 1{table QD Aspirin Adult Low Adult Low t} Adult Low Dose 81 MG Dose 81 MG Dose 81 MG metFORMIN metFORMIN No 1{table BID metFORMIN HCl 1000 MG HCl 1000 MG t_with_ HCl 1000 a_meal} MG Carvedilol Carvedilol No 1{table BID Carvedilol 25 MG 25 MG t_with_ 25 MG food} Telmisartan Telmisartan No BID Telmisarta 80 MG 80 MG n 80 MG Cyclobenzap Cyclobenzap No 1{table BID Cyclobenza rine HCl 10 rine HCl 10 t_as_ne ranjeet HCl MG MG eded} 10 MG Cipro 500 Cipro 500 No 1{table BID Cipro 500 MG MG t} MG Atorvastati Atorvastati No 1{table QD Atorvastat n Calcium n Calcium t} in Calcium 80 MG 80 MG 80 MG [place] 3 [place] 3 No 1{capsu QD [place] 3 1000 MG 1000 MG le} 1000 MG Fosamax 70 Fosamax 70 No 1{table Fosamax 70 MG MG t} MG Cozaar 50 Cozaar 50 No 1{table QD Cozaar 50 MG MG t} MG Coreg 12.5 Coreg 12.5 No 1{table BID Coreg 12.5 MG MG t} MG metFORMIN metFORMIN No 1{table BID metFORMIN HCl 500 MG HCl 500 MG t_with_ HCl 500 MG a_meal} Aspirin Aspirin No 1{table QD Aspirin Adult Low Adult Low t} Adult Low Dose 81 MG Dose 81 MG Dose 81 MG NovoLOG Mix NovoLOG Mix No NovoLOG 70/30 70/30 Mix 70/30 (70-30) 100 (70-30) 100 (70-30) UNIT/ML UNIT/ML 100 UNIT/ML Levothyroxi Levothyroxi No QD Levothyrox ne Sodium ne Sodium ine Sodium 50 MCG 50 MCG 50 MCG Nasonex 50 Nasonex 50 No 2{spray QD Nasonex 50 MCG/ACT MCG/ACT s_in_ea MCG/ACT ch_nost ril} Gabapentin Gabapentin No 1{capsu TID Gabapentin 100 MG 100 MG le} 100 MG hydroCHLORO hydroCHLORO No 1{table QD hydroCHLOR thiazide 25 thiazide 25 t_in_th Othiazide MG MG e_morni 25 MG ng} Diclofenac Diclofenac No TID Diclofenac Sodium 1 % Sodium 1 % Sodium 1 % NovoLIN NovoLIN No NovoLIN 70/30 70/30 70/30 (70-30) 100 (70-30) 100 (70-30) UNIT/ML UNIT/ML 100 UNIT/ML predniSONE predniSONE No QD predniSONE 20 MG 20 MG 20 MG Vitamin D3 Vitamin D3 No 1{capsu QD Vitamin D3 50 MCG 50 MCG le} 50 MCG (1999 UT) (1999 UT) (1999) ProAir HFA ProAir HFA No 2{puffs QID ProAir HFA 108 (90 108 (90 _as_nee 108 (90 Base) Base) ded} Base) MCG/ACT MCG/ACT MCG/ACT Gabapentin Gabapentin No 1{capsu TID Gabapentin 300 MG 300 MG le} 300 MG Voltaren 1 Voltaren 1 No Voltaren 1 % % % Ultram 50 Ultram 50 No 1{table QID Ultram 50 MG MG t_as_ne MG eded} Singulair Singulair No 1{table QD Singulair 10 MG 10 MG t_in_th 10 MG e_eveni ng} ZyrTEC ZyrTEC No 1{table QD ZyrTEC Allergy 10 Allergy 10 t} Allergy 10 MG MG MG Vitamin D Vitamin D No 1{capsu Vitamin D (Ergocalcif (Ergocalcif le} (Ergocalci bruna) 32180 bruna) 08620 ferol) UNIT UNIT 45065 UNIT Levothyroxi Levothyroxi No QD Levothyrox ne Sodium ne Sodium ine Sodium 50 MCG 50 MCG 50 MCG Cozaar 50 Cozaar 50 No 1{table QD Cozaar 50 MG MG t} MG Nasonex 50 Nasonex 50 No 2{spray QD Nasonex 50 MCG/ACT MCG/ACT s_in_ea MCG/ACT ch_nost ril} ZyrTEC ZyrTEC No 1{table QD ZyrTEC Allergy 10 Allergy 10 t} Allergy 10 MG MG MG Carvedilol Carvedilol No 1{table BID Carvedilol 25 MG 25 MG t_with_ 25 MG food} NovoLIN NovoLIN No NovoLIN 70/30 70/30 70/30 (70-30) 100 (70-30) 100 (70-30) UNIT/ML UNIT/ML 100 UNIT/ML Cyclobenzap Cyclobenzap No 1{table BID Cyclobenza rine HCl 10 rine HCl 10 t_as_ne ranjeet HCl MG MG eded} 10 MG ProAir HFA ProAir HFA No 2{puffs QID ProAir HFA 108 (90 108 (90 _as_nee 108 (90 Base) Base) ded} Base) MCG/ACT MCG/ACT MCG/ACT Telmisartan Telmisartan No BID Telmisarta 80 MG 80 MG n 80 MG [place] 3 [place] 3 No 1{capsu QD [place] 3 1000 MG 1000 MG le} 1000 MG Gabapentin Gabapentin No 1{capsu TID Gabapentin 100 MG 100 MG le} 100 MG hydroCHLORO hydroCHLORO No 1{table QD hydroCHLOR thiazide 25 thiazide 25 t_in_th Othiazide MG MG e_morni 25 MG ng} metFORMIN metFORMIN No 1{table BID metFORMIN HCl 1000 MG HCl 1000 MG t_with_ HCl 1000 a_meal} MG Singulair Singulair No 1{table QD Singulair 10 MG 10 MG t_in_th 10 MG e_eveni ng} Vitamin D Vitamin D No 1{capsu Vitamin D (Ergocalcif (Ergocalcif le} (Ergocalci bruna) [id number] bruna) 06791 ferol) UNIT UNIT [id number] UNIT NovoLOG Mix NovoLOG Mix No NovoLOG 70/30 70/30 Mix 70/30 (70-30) 100 (70-30) 100 (70-30) UNIT/ML UNIT/ML 100 UNIT/ML Ultram 50 Ultram 50 No 1{table QID Ultram 50 MG MG t_as_ne MG eded} Voltaren 1 Voltaren 1 No Voltaren 1 % % % Coreg 12.5 Coreg 12.5 No 1{table BID Coreg 12.5 MG MG t} MG predniSONE predniSONE No QD predniSONE 20 MG 20 MG 20 MG Atorvastati Atorvastati No 1{table QD Atorvastat n Calcium n Calcium t} in Calcium 80 MG 80 MG 80 MG Diclofenac Diclofenac No TID Diclofenac Sodium 1 % Sodium 1 % Sodium 1 % Gabapentin Gabapentin No 1{capsu TID Gabapentin 300 MG 300 MG le} 300 MG Fosamax 70 Fosamax 70 No 1{table Fosamax 70 MG MG t} MG Vitamin D3 Vitamin D3 No 1{capsu QD Vitamin D3 50 MCG 50 MCG le} 50 MCG (1999 UT) (1999 UT) (1999) Cipro 500 Cipro 500 No 1{table BID Cipro 500 MG MG t} MG Aspirin Aspirin No 1{table QD Aspirin Adult Low Adult Low t} Adult Low Dose 81 MG Dose 81 MG Dose 81 MG metFORMIN metFORMIN No 1{table BID metFORMIN HCl 500 MG HCl 500 MG t_with_ HCl 500 MG a_meal} Levothyroxi Levothyroxi No QD Levothyrox ne Sodium ne Sodium ine Sodium 50 MCG 50 MCG 50 MCG Cozaar 50 Cozaar 50 No 1{table QD Cozaar 50 MG MG t} MG Nasonex 50 Nasonex 50 No 2{spray QD Nasonex 50 MCG/ACT MCG/ACT s_in_ea MCG/ACT ch_nost ril} ZyrTEC ZyrTEC No 1{table QD ZyrTEC Allergy 10 Allergy 10 t} Allergy 10 MG MG MG Carvedilol Carvedilol No 1{table BID Carvedilol 25 MG 25 MG t_with_ 25 MG food} NovoLIN NovoLIN No NovoLIN 70/30 70/30 70/30 (70-30) 100 (70-30) 100 (70-30) UNIT/ML UNIT/ML 100 UNIT/ML Cyclobenzap Cyclobenzap No 1{table BID Cyclobenza rine HCl 10 rine HCl 10 t_as_ne ranjeet HCl MG MG eded} 10 MG ProAir HFA ProAir HFA No 2{puffs QID ProAir HFA 108 (90 108 (90 _as_nee 108 (90 Base) Base) ded} Base) MCG/ACT MCG/ACT MCG/ACT Telmisartan Telmisartan No BID Telmisarta 80 MG 80 MG n 80 MG [place] 3 [place] 3 No 1{capsu QD [place] 3 1000 MG 1000 MG le} 1000 MG Gabapentin Gabapentin No 1{capsu TID Gabapentin 100 MG 100 MG le} 100 MG hydroCHLORO hydroCHLORO No 1{table QD hydroCHLOR thiazide 25 thiazide 25 t_in_th Othiazide MG MG e_morni 25 MG ng} metFORMIN metFORMIN No 1{table BID metFORMIN HCl 1000 MG HCl 1000 MG t_with_ HCl 1000 a_meal} MG Singulair Singulair No 1{table QD Singulair 10 MG 10 MG t_in_th 10 MG e_eveni ng} Vitamin D Vitamin D No 1{capsu Vitamin D (Ergocalcif (Ergocalcif le} (Ergocalci bruna) 52133 bruna) 65636 ferol) UNIT UNIT 43141 UNIT NovoLOG Mix NovoLOG Mix No NovoLOG 70/30 70/30 Mix 70/30 (70-30) 100 (70-30) 100 (70-30) UNIT/ML UNIT/ML 100 UNIT/ML Ultram 50 Ultram 50 No 1{table QID Ultram 50 MG MG t_as_ne MG eded} Voltaren 1 Voltaren 1 No Voltaren 1 % % % Coreg 12.5 Coreg 12.5 No 1{table BID Coreg 12.5 MG MG t} MG predniSONE predniSONE No QD predniSONE 20 MG 20 MG 20 MG Atorvastati Atorvastati No 1{table QD Atorvastat n Calcium n Calcium t} in Calcium 80 MG 80 MG 80 MG Diclofenac Diclofenac No TID Diclofenac Sodium 1 % Sodium 1 % Sodium 1 % Gabapentin Gabapentin No 1{capsu TID Gabapentin 300 MG 300 MG le} 300 MG Fosamax 70 Fosamax 70 No 1{table Fosamax 70 MG MG t} MG Vitamin D3 Vitamin D3 No 1{capsu QD Vitamin D3 50 MCG 50 MCG le} 50 MCG (1999 UT) (1999 UT) (1999 UT) Cipro 500 Cipro 500 No 1{table BID Cipro 500 MG MG t} MG Aspirin Aspirin No 1{table QD Aspirin Adult Low Adult Low t} Adult Low Dose 81 MG Dose 81 MG Dose 81 MG metFORMIN metFORMIN No 1{table BID metFORMIN HCl 500 MG HCl 500 MG t_with_ HCl 500 MG a_meal} ProAir HFA ProAir HFA No 2{puffs QID ProAir HFA 108 (90 108 (90 _as_nee 108 (90 Base) Base) ded} Base) MCG/ACT MCG/ACT MCG/ACT Telmisartan Telmisartan No BID Telmisarta 80 MG 80 MG n 80 MG Cozaar 50 Cozaar 50 No 1{table QD Cozaar 50 MG MG t} MG Levothyroxi Levothyroxi No QD Levothyrox ne Sodium ne Sodium ine Sodium 50 MCG 50 MCG 50 MCG Carvedilol Carvedilol No 1{table BID Carvedilol 25 MG 25 MG t_with_ 25 MG food} Gabapentin Gabapentin No 1{capsu TID Gabapentin 100 MG 100 MG le} 100 MG NovoLIN NovoLIN No NovoLIN 70/30 70/30 70/30 (70-30) 100 (70-30) 100 (70-30) UNIT/ML UNIT/ML 100 UNIT/ML Cyclobenzap Cyclobenzap No 1{table BID Cyclobenza rine HCl 10 rine HCl 10 t_as_ne ranjeet HCl MG MG eded} 10 MG hydroCHLORO hydroCHLORO No 1{table QD hydroCHLOR thiazide 25 thiazide 25 t_in_th Othiazide MG MG e_morni 25 MG ng} [place] 3 [place] 3 No 1{capsu QD [place] 3 1000 MG 1000 MG le} 1000 MG Gabapentin Gabapentin No Gabapentin 300 MG 300 MG 300 MG Voltaren 1 Voltaren 1 No Voltaren 1 % % % metFORMIN metFORMIN No 1{table BID metFORMIN HCl 1000 MG HCl 1000 MG t_with_ HCl 1000 a_meal} MG Vitamin D Vitamin D No 1{capsu Vitamin D (Ergocalcif (Ergocalcif le} (Ergocalci bruna) 37656 bruna) 95897 ferol) UNIT UNIT 50388 UNIT Diclofenac Diclofenac No TID Diclofenac Sodium 1 % Sodium 1 % Sodium 1 % Coreg 12.5 Coreg 12.5 No 1{table BID Coreg 12.5 MG MG t} MG Ultram 50 Ultram 50 No 1{table QID Ultram 50 MG MG t_as_ne MG eded} NovoLOG Mix NovoLOG Mix No NovoLOG 70/30 70/30 Mix 70/30 (70-30) 100 (70-30) 100 (70-30) UNIT/ML UNIT/ML 100 UNIT/ML ZyrTEC ZyrTEC No 1{table QD ZyrTEC Allergy 10 Allergy 10 t} Allergy 10 MG MG MG predniSONE predniSONE No QD predniSONE 20 MG 20 MG 20 MG Atorvastati Atorvastati No 1{table QD Atorvastat n Calcium n Calcium t} in Calcium 80 MG 80 MG 80 MG Nasonex 50 Nasonex 50 No 2{spray QD Nasonex 50 MCG/ACT MCG/ACT s_in_ea MCG/ACT ch_nost ril} Singulair Singulair No 1{table QD Singulair 10 MG 10 MG t_in_th 10 MG e_eveni ng} Fosamax 70 Fosamax 70 No 1{table Fosamax 70 MG MG t} MG Vitamin D3 Vitamin D3 No 1{capsu QD Vitamin D3 50 MCG 50 MCG le} 50 MCG (1999) (1999) (1999) Cipro 500 Cipro 500 No 1{table BID Cipro 500 MG MG t} MG Aspirin Aspirin No 1{table QD Aspirin Adult Low Adult Low t} Adult Low Dose 81 MG Dose 81 MG Dose 81 MG metFORMIN metFORMIN No 1{table BID metFORMIN HCl 500 MG HCl 500 MG t_with_ HCl 500 MG a_meal} ProAir HFA ProAir HFA No 2{puffs QID ProAir HFA 108 (90 108 (90 _as_nee 108 (90 Base) Base) ded} Base) MCG/ACT MCG/ACT MCG/ACT Telmisartan Telmisartan No BID Telmisarta 80 MG 80 MG n 80 MG Cozaar 50 Cozaar 50 No 1{table QD Cozaar 50 MG MG t} MG Levothyroxi Levothyroxi No QD Levothyrox ne Sodium ne Sodium ine Sodium 50 MCG 50 MCG 50 MCG Carvedilol Carvedilol No 1{table BID Carvedilol 25 MG 25 MG t_with_ 25 MG food} Gabapentin Gabapentin No 1{capsu TID Gabapentin 100 MG 100 MG le} 100 MG NovoLIN NovoLIN No NovoLIN 70/30 70/30 70/30 (70-30) 100 (70-30) 100 (70-30) UNIT/ML UNIT/ML 100 UNIT/ML Cyclobenzap Cyclobenzap No 1{table BID Cyclobenza rine HCl 10 rine HCl 10 t_as_ne ranjeet HCl MG MG eded} 10 MG hydroCHLORO hydroCHLORO No 1{table QD hydroCHLOR thiazide 25 thiazide 25 t_in_th Othiazide MG MG e_morni 25 MG ng} [place] 3 [place] 3 No 1{capsu QD [place] 3 1000 MG 1000 MG le} 1000 MG Gabapentin Gabapentin No Gabapentin 300 MG 300 MG 300 MG Voltaren 1 Voltaren 1 No Voltaren 1 % % % metFORMIN metFORMIN No 1{table BID metFORMIN HCl 1000 MG HCl 1000 MG t_with_ HCl 1000 a_meal} MG Vitamin D Vitamin D No 1{capsu Vitamin D (Ergocalcif (Ergocalcif le} (Ergocalci bruna) 05054 bruna) 55054 ferol) UNIT UNIT 07244 UNIT Diclofenac Diclofenac No TID Diclofenac Sodium 1 % Sodium 1 % Sodium 1 % Coreg 12.5 Coreg 12.5 No 1{table BID Coreg 12.5 MG MG t} MG Ultram 50 Ultram 50 No 1{table QID Ultram 50 MG MG t_as_ne MG eded} NovoLOG Mix NovoLOG Mix No NovoLOG 70/30 70/30 Mix 70/30 (70-30) 100 (70-30) 100 (70-30) UNIT/ML UNIT/ML 100 UNIT/ML ZyrTEC ZyrTEC No 1{table QD ZyrTEC Allergy 10 Allergy 10 t} Allergy 10 MG MG MG predniSONE predniSONE No QD predniSONE 20 MG 20 MG 20 MG Atorvastati Atorvastati No 1{table QD Atorvastat n Calcium n Calcium t} in Calcium 80 MG 80 MG 80 MG Nasonex 50 Nasonex 50 No 2{spray QD Nasonex 50 MCG/ACT MCG/ACT s_in_ea MCG/ACT ch_nost ril} Singulair Singulair No 1{table QD Singulair 10 MG 10 MG t_in_th 10 MG e_eveni ng} Fosamax 70 Fosamax 70 No 1{table Fosamax 70 MG MG t} MG Vitamin D3 Vitamin D3 No 1{capsu QD Vitamin D3 50 MCG 50 MCG le} 50 MCG (1999 UT) (1999 UT) (1999) Cipro 500 Cipro 500 No 1{table BID Cipro 500 MG MG t} MG Aspirin Aspirin No 1{table QD Aspirin Adult Low Adult Low t} Adult Low Dose 81 MG Dose 81 MG Dose 81 MG metFORMIN metFORMIN No 1{table BID metFORMIN HCl 500 MG HCl 500 MG t_with_ HCl 500 MG a_meal} Diclofenac Diclofenac No TID Diclofenac Sodium 1 % Sodium 1 % Sodium 1 % Tylenol Tylenol No Tylenol Arthritis Arthritis Arthritis Pain Pain Pain Ferrous Ferrous No 1{table QD Ferrous Sulfate 325 Sulfate 325 t} Sulfate (65 Fe) MG (65 Fe) MG 325 (65 Fe) MG Triamterene Triamterene No 1{table QD Triamteren -HCTZ -HCTZ t_in_th e-HCTZ 37.5-25 MG 37.5-25 MG e_morni 37.5-25 MG ng} Carvedilol Carvedilol No 1{table BID Carvedilol 25 MG 25 MG t_with_ 25 MG food} NovoLOG Mix NovoLOG Mix No NovoLOG 70/30 70/30 Mix 70/30 (70-30) 100 (70-30) 100 (70-30) UNIT/ML UNIT/ML 100 UNIT/ML Gabapentin Gabapentin No 1{capsu TID Gabapentin 300 MG 300 MG le} 300 MG Atorvastati Atorvastati No 1{table QD Atorvastat n Calcium n Calcium t} in Calcium 80 MG 80 MG 80 MG metFORMIN metFORMIN No 1{table BID metFORMIN HCl 1000 MG HCl 1000 MG t_with_ HCl 1000 a_meal} MG Levothyroxi Levothyroxi No QD Levothyrox ne Sodium ne Sodium ine Sodium 50 MCG 50 MCG 50 MCG Fosamax 70 Fosamax 70 No 1{table Fosamax 70 MG MG t} MG Pantoprazol Pantoprazol No 1{table QD Pantoprazo e Sodium 40 e Sodium 40 t} le Sodium MG MG 40 MG Gabapentin Gabapentin No Gabapentin 300 MG 300 MG 300 MG Ferrous Ferrous No 1{table QD Ferrous Sulfate 325 Sulfate 325 t} Sulfate (65 Fe) MG (65 Fe) MG 325 (65 Fe) MG Tylenol Tylenol No Tylenol Arthritis Arthritis Arthritis Pain Pain Pain Triamterene Triamterene No 1{table QD Triamteren -HCTZ -HCTZ t_in_th e-HCTZ 37.5-25 MG 37.5-25 MG e_morni 37.5-25 MG ng} Magnesium Magnesium No Magnesium Triamterene Triamterene No 1{capsu QD Triamteren 50 MG 50 MG le} e 50 MG Atorvastati Atorvastati No 1{table QD Atorvastat n Calcium n Calcium t} in Calcium 80 MG 80 MG 80 MG Pantoprazol Pantoprazol No 1{table QD Pantoprazo e Sodium 40 e Sodium 40 t} le Sodium MG MG 40 MG Fosamax 70 Fosamax 70 No 1{table Fosamax 70 MG MG t} MG metFORMIN metFORMIN No 1{table QD metFORMIN HCl 1000 MG HCl 1000 MG t_with_ HCl 1000 a_meal} MG NovoLOG Mix NovoLOG Mix No NovoLOG 70/30 70/30 Mix 70/30 (70-30) 100 (70-30) 100 (70-30) UNIT/ML UNIT/ML 100 UNIT/ML Vitamin D3 Vitamin D3 No Vitamin D3 Gabapentin Gabapentin No Gabapentin 300 MG 300 MG 300 MG Diclofenac Diclofenac No TID Diclofenac Sodium 1 % Sodium 1 % Sodium 1 % Levothyroxi Levothyroxi No QD Levothyrox ne Sodium ne Sodium ine Sodium 75 MCG 75 MCG 75 MCG Carvedilol Carvedilol No 1{table BID Carvedilol 25 MG 25 MG t_with_ 25 MG food} Gabapentin Gabapentin No 1{capsu TID Gabapentin 300 MG 300 MG le} 300 MG Ferrous Ferrous No 1{table QD Ferrous Sulfate 325 Sulfate 325 t} Sulfate (65 Fe) MG (65 Fe) MG 325 (65 Fe) MG Tylenol Tylenol No Tylenol Arthritis Arthritis Arthritis Pain Pain Pain Triamterene Triamterene No 1{table QD Triamteren -HCTZ -HCTZ t_in_th e-HCTZ 37.5-25 MG 37.5-25 MG e_morni 37.5-25 MG ng} Magnesium Magnesium No Magnesium Triamterene Triamterene No 1{capsu QD Triamteren 50 MG 50 MG le} e 50 MG Atorvastati Atorvastati No 1{table QD Atorvastat n Calcium n Calcium t} in Calcium 80 MG 80 MG 80 MG Pantoprazol Pantoprazol No 1{table QD Pantoprazo e Sodium 40 e Sodium 40 t} le Sodium MG MG 40 MG Fosamax 70 Fosamax 70 No 1{table Fosamax 70 MG MG t} MG metFORMIN metFORMIN No 1{table QD metFORMIN HCl 1000 MG HCl 1000 MG t_with_ HCl 1000 a_meal} MG NovoLOG Mix NovoLOG Mix No NovoLOG 70/30 70/30 Mix 70/30 (70-30) 100 (70-30) 100 (70-30) UNIT/ML UNIT/ML 100 UNIT/ML Vitamin D3 Vitamin D3 No Vitamin D3 Gabapentin Gabapentin No Gabapentin 300 MG 300 MG 300 MG Diclofenac Diclofenac No TID Diclofenac Sodium 1 % Sodium 1 % Sodium 1 % Levothyroxi Levothyroxi No QD Levothyrox ne Sodium ne Sodium ine Sodium 75 MCG 75 MCG 75 MCG Carvedilol Carvedilol No 1{table BID Carvedilol 25 MG 25 MG t_with_ 25 MG food} Gabapentin Gabapentin No 1{capsu TID Gabapentin 300 MG 300 MG le} 300 MG Fosamax 70 Fosamax 70 No 1{table Fosamax 70 MG MG t} MG Gabapentin Gabapentin No Gabapentin 300 MG 300 MG 300 MG Levothyroxi Levothyroxi No QD Levothyrox ne Sodium ne Sodium ine Sodium 75 MCG 75 MCG 75 MCG NovoLOG Mix NovoLOG Mix No NovoLOG 70/30 70/30 Mix 70/30 (70-30) 100 (70-30) 100 (70-30) UNIT/ML UNIT/ML 100 UNIT/ML Diclofenac Diclofenac No TID Diclofenac Sodium 1 % Sodium 1 % Sodium 1 % Ferrous Ferrous No 1{table QD Ferrous Sulfate 325 Sulfate 325 t} Sulfate (65 Fe) MG (65 Fe) MG 325 (65 Fe) MG Tylenol Tylenol No Tylenol Arthritis Arthritis Arthritis Pain Pain Pain Triamterene Triamterene No 1{table QD Triamteren -HCTZ -HCTZ t_in_ e-HCTZ 37.5-25 MG 37.5-25 MG e_morni 37.5-25 MG ng} Triamterene Triamterene No 1{capsu QD Triamteren 50 MG 50 MG le} e 50 MG Pantoprazol Pantoprazol No 1{table QD Pantoprazo e Sodium 40 e Sodium 40 t} le Sodium MG MG 40 MG metFORMIN metFORMIN No 1{table BID metFORMIN HCl 1000 MG HCl 1000 MG t_with_ HCl 1000 a_meal} MG Atorvastati Atorvastati No 1{table QD Atorvastat n Calcium n Calcium t} in Calcium 80 MG 80 MG 80 MG Carvedilol Carvedilol No 1{table BID Carvedilol 25 MG 25 MG t_with_ 25 MG food} Vitamin D3 Vitamin D3 No Vitamin D3 Magnesium Magnesium No Magnesium Gabapentin Gabapentin No 1{capsu TID Gabapentin 300 MG 300 MG le} 300 MG Fosamax 70 Fosamax 70 No 1{table Fosamax 70 MG MG t} MG Gabapentin Gabapentin No Gabapentin 300 MG 300 MG 300 MG Carvedilol Carvedilol No Carvedilol 25 MG 25 MG 25 MG NovoLOG Mix NovoLOG Mix No NovoLOG 70/30 70/30 Mix 70/30 (70-30) 100 (70-30) 100 (70-30) UNIT/ML UNIT/ML 100 UNIT/ML Diclofenac Diclofenac No TID Diclofenac Sodium 1 % Sodium 1 % Sodium 1 % Ferrous Ferrous No 1{table QD Ferrous Sulfate 325 Sulfate 325 t} Sulfate (65 Fe) MG (65 Fe) MG 325 (65 Fe) MG Tylenol Tylenol No Tylenol Arthritis Arthritis Arthritis Pain Pain Pain Triamterene Triamterene No 1{capsu QD Triamteren 50 MG 50 MG le} e 50 MG Levothyroxi Levothyroxi No QD Levothyrox ne Sodium ne Sodium ine Sodium 75 MCG 75 MCG 75 MCG Pantoprazol Pantoprazol No 1{table QD Pantoprazo e Sodium 40 e Sodium 40 t} le Sodium MG MG 40 MG metFORMIN metFORMIN No 1{table BID metFORMIN HCl 1000 MG HCl 1000 MG t_with_ HCl 1000 a_meal} MG Atorvastati Atorvastati No 1{table QD Atorvastat n Calcium n Calcium t} in Calcium 80 MG 80 MG 80 MG Triamterene Triamterene No 1{table QD Triamteren -HCTZ -HCTZ t_in_ e-HCTZ 37.5-25 MG 37.5-25 MG e_morni 37.5-25 MG ng} Vitamin D3 Vitamin D3 No Vitamin D3 Magnesium Magnesium No Magnesium Gabapentin Gabapentin No 1{capsu TID Gabapentin 300 MG 300 MG le} 300 MG Fosamax 70 Fosamax 70 No 1{table Fosamax 70 MG MG t} MG Gabapentin Gabapentin No Gabapentin 300 MG 300 MG 300 MG Atorvastati Atorvastati No 1{table QD Atorvastat n Calcium n Calcium t} in Calcium 80 MG 80 MG 80 MG NovoLOG Mix NovoLOG Mix No NovoLOG 70/30 70/30 Mix 70/30 (70-30) 100 (70-30) 100 (70-30) UNIT/ML UNIT/ML 100 UNIT/ML Diclofenac Diclofenac No TID Diclofenac Sodium 1 % Sodium 1 % Sodium 1 % Ferrous Ferrous No 1{table QD Ferrous Sulfate 325 Sulfate 325 t} Sulfate (65 Fe) MG (65 Fe) MG 325 (65 Fe) MG Tylenol Tylenol No Tylenol Arthritis Arthritis Arthritis Pain Pain Pain Levothyroxi Levothyroxi No QD Levothyrox ne Sodium ne Sodium ine Sodium 75 MCG 75 MCG 75 MCG Carvedilol Carvedilol No Carvedilol 25 MG 25 MG 25 MG Pantoprazol Pantoprazol No 1{table QD Pantoprazo e Sodium 40 e Sodium 40 t} le Sodium MG MG 40 MG metFORMIN metFORMIN No 1{table BID metFORMIN HCl 1000 MG HCl 1000 MG t_with_ HCl 1000 a_meal} MG Triamterene Triamterene No 1{table QD Triamteren -HCTZ -HCTZ t_in_ e-HCTZ 37.5-25 MG 37.5-25 MG e_morni 37.5-25 MG ng} Triamterene Triamterene No 1{capsu QD Triamteren 50 MG 50 MG le} e 50 MG Vitamin D3 Vitamin D3 No Vitamin D3 Magnesium Magnesium No Magnesium Gabapentin Gabapentin No 1{capsu TID Gabapentin 300 MG 300 MG le} 300 MG Fosamax 70 Fosamax 70 No 1{table Fosamax 70 MG MG t} MG Gabapentin Gabapentin No Gabapentin 300 MG 300 MG 300 MG Atorvastati Atorvastati No 1{table QD Atorvastat n Calcium n Calcium t} in Calcium 80 MG 80 MG 80 MG NovoLOG Mix NovoLOG Mix No NovoLOG 70/30 70/30 Mix 70/30 (70-30) 100 (70-30) 100 (70-30) UNIT/ML UNIT/ML 100 UNIT/ML Diclofenac Diclofenac No TID Diclofenac Sodium 1 % Sodium 1 % Sodium 1 % Ferrous Ferrous No 1{table QD Ferrous Sulfate 325 Sulfate 325 t} Sulfate (65 Fe) MG (65 Fe) MG 325 (65 Fe) MG Tylenol Tylenol No Tylenol Arthritis Arthritis Arthritis Pain Pain Pain Levothyroxi Levothyroxi No QD Levothyrox ne Sodium ne Sodium ine Sodium 75 MCG 75 MCG 75 MCG Carvedilol Carvedilol No Carvedilol 25 MG 25 MG 25 MG Pantoprazol Pantoprazol No 1{table QD Pantoprazo e Sodium 40 e Sodium 40 t} le Sodium MG MG 40 MG metFORMIN metFORMIN No 1{table BID metFORMIN HCl 1000 MG HCl 1000 MG t_with_ HCl 1000 a_meal} MG Triamterene Triamterene No 1{table QD Triamteren -HCTZ -HCTZ t_in e-HCTZ 37.5-25 MG 37.5-25 MG e_morni 37.5-25 MG ng} Triamterene Triamterene No 1{capsu QD Triamteren 50 MG 50 MG le} e 50 MG Vitamin D3 Vitamin D3 No Vitamin D3 Magnesium Magnesium No Magnesium Gabapentin Gabapentin No 1{capsu TID Gabapentin 300 MG 300 MG le} 300 MG Tylenol Tylenol No Tylenol Arthritis Arthritis Arthritis Pain Pain Pain Levothyroxi Levothyroxi No QD Levothyrox ne Sodium ne Sodium ine Sodium 75 MCG 75 MCG 75 MCG Magnesium Magnesium No Magnesium Triamterene Triamterene No 1{capsu QD Triamteren 50 MG 50 MG le} e 50 MG NovoLOG Mix NovoLOG Mix No NovoLOG 70/30 70/30 Mix 70/30 (70-30) 100 (70-30) 100 (70-30) UNIT/ML UNIT/ML 100 UNIT/ML Gabapentin Gabapentin No 1{capsu TID Gabapentin 300 MG 300 MG le} 300 MG Triamterene Triamterene No 1{table QD Triamteren -HCTZ -HCTZ t_in e-HCTZ 37.5-25 MG 37.5-25 MG e_morni 37.5-25 MG ng} Diclofenac Diclofenac No TID Diclofenac Sodium 1 % Sodium 1 % Sodium 1 % Ferrous Ferrous No 1{table QD Ferrous Sulfate 325 Sulfate 325 t} Sulfate (65 Fe) MG (65 Fe) MG 325 (65 Fe) MG Pantoprazol Pantoprazol No 1{table QD Pantoprazo e Sodium 40 e Sodium 40 t} le Sodium MG MG 40 MG Atorvastati Atorvastati No 1{table QD Atorvastat n Calcium n Calcium t} in Calcium 80 MG 80 MG 80 MG metFORMIN metFORMIN No 1{table BID metFORMIN HCl 1000 MG HCl 1000 MG t_with_ HCl 1000 a_meal} MG Fosamax 70 Fosamax 70 No 1{table Fosamax 70 MG MG t} MG Gabapentin Gabapentin No Gabapentin 300 MG 300 MG 300 MG Vitamin D3 Vitamin D3 No Vitamin D3 Triamterene Triamterene No Triamteren -HCTZ -HCTZ e-HCTZ Carvedilol Carvedilol No Carvedilol 25 MG 25 MG 25 MG Tylenol Tylenol No Tylenol Arthritis Arthritis Arthritis Pain Pain Pain Levothyroxi Levothyroxi No QD Levothyrox ne Sodium ne Sodium ine Sodium 75 MCG 75 MCG 75 MCG Magnesium Magnesium No Magnesium Triamterene Triamterene No 1{capsu QD Triamteren 50 MG 50 MG le} e 50 MG NovoLOG Mix NovoLOG Mix No NovoLOG 70/30 70/30 Mix 70/30 (70-30) 100 (70-30) 100 (70-30) UNIT/ML UNIT/ML 100 UNIT/ML Gabapentin Gabapentin No 1{capsu TID Gabapentin 300 MG 300 MG le} 300 MG Triamterene Triamterene No 1{table QD Triamteren -HCTZ -HCTZ t_in_th e-HCTZ 37.5-25 MG 37.5-25 MG e_morni 37.5-25 MG ng} Diclofenac Diclofenac No TID Diclofenac Sodium 1 % Sodium 1 % Sodium 1 % Ferrous Ferrous No 1{table QD Ferrous Sulfate 325 Sulfate 325 t} Sulfate (65 Fe) MG (65 Fe) MG 325 (65 Fe) MG Pantoprazol Pantoprazol No 1{table QD Pantoprazo e Sodium 40 e Sodium 40 t} le Sodium MG MG 40 MG Atorvastati Atorvastati No 1{table QD Atorvastat n Calcium n Calcium t} in Calcium 80 MG 80 MG 80 MG metFORMIN metFORMIN No 1{table BID metFORMIN HCl 1000 MG HCl 1000 MG t_with_ HCl 1000 a_meal} MG Fosamax 70 Fosamax 70 No 1{table Fosamax 70 MG MG t} MG Gabapentin Gabapentin No Gabapentin 300 MG 300 MG 300 MG Vitamin D3 Vitamin D3 No Vitamin D3 Triamterene Triamterene No Triamteren -HCTZ -HCTZ e-HCTZ Carvedilol Carvedilol No Carvedilol 25 MG 25 MG 25 MG NovoLOG Mix NovoLOG Mix No NovoLOG 70/30 70/30 Mix 70/30 (70-30) 100 (70-30) 100 (70-30) UNIT/ML UNIT/ML 100 UNIT/ML Gabapentin Gabapentin No 1{capsu TID Gabapentin 300 MG 300 MG le} 300 MG Fosamax 70 Fosamax 70 No 1{table Fosamax 70 MG MG t} MG Levothyroxi Levothyroxi No QD Levothyrox ne Sodium ne Sodium ine Sodium 75 MCG 75 MCG 75 MCG Triamterene Triamterene No Triamteren -HCTZ -HCTZ e-HCTZ Gabapentin Gabapentin No Gabapentin 300 MG 300 MG 300 MG metFORMIN metFORMIN No 1{table BID metFORMIN HCl 1000 MG HCl 1000 MG t_with_ HCl 1000 a_meal} MG Pantoprazol Pantoprazol No 1{table QD Pantoprazo e Sodium 40 e Sodium 40 t} le Sodium MG MG 40 MG Ferrous Ferrous No 1{table QD Ferrous Sulfate 325 Sulfate 325 t} Sulfate (65 Fe) MG (65 Fe) MG 325 (65 Fe) MG Tylenol Tylenol No Tylenol Arthritis Arthritis Arthritis Pain Pain Pain Atorvastati Atorvastati No 1{table QD Atorvastat n Calcium n Calcium t} in Calcium 80 MG 80 MG 80 MG Carvedilol Carvedilol No Carvedilol 25 MG 25 MG 25 MG Vitamin D3 Vitamin D3 No Vitamin D3 Triamterene Triamterene No 1{table QD Triamteren -HCTZ -HCTZ t_in_th e-HCTZ 37.5-25 MG 37.5-25 MG e_morni 37.5-25 MG ng} Triamterene Triamterene No 1{capsu QD Triamteren 50 MG 50 MG le} e 50 MG Diclofenac Diclofenac No TID Diclofenac Sodium 1 % Sodium 1 % Sodium 1 % Azithromyci Azithromyci No QD Azithromyc n 250 MG n 250 MG in 250 MG Magnesium Magnesium No Magnesium NovoLOG Mix NovoLOG Mix No NovoLOG 70/30 70/30 Mix 70/30 (70-30) 100 (70-30) 100 (70-30) UNIT/ML UNIT/ML 100 UNIT/ML Gabapentin Gabapentin No 1{capsu TID Gabapentin 300 MG 300 MG le} 300 MG Fosamax 70 Fosamax 70 No 1{table Fosamax 70 MG MG t} MG Levothyroxi Levothyroxi No QD Levothyrox ne Sodium ne Sodium ine Sodium 75 MCG 75 MCG 75 MCG Triamterene Triamterene No Triamteren -HCTZ -HCTZ e-HCTZ Gabapentin Gabapentin No Gabapentin 300 MG 300 MG 300 MG metFORMIN metFORMIN No 1{table BID metFORMIN HCl 1000 MG HCl 1000 MG t_with_ HCl 1000 a_meal} MG Pantoprazol Pantoprazol No 1{table QD Pantoprazo e Sodium 40 e Sodium 40 t} le Sodium MG MG 40 MG Ferrous Ferrous No 1{table QD Ferrous Sulfate 325 Sulfate 325 t} Sulfate (65 Fe) MG (65 Fe) MG 325 (65 Fe) MG Tylenol Tylenol No Tylenol Arthritis Arthritis Arthritis Pain Pain Pain Atorvastati Atorvastati No 1{table QD Atorvastat n Calcium n Calcium t} in Calcium 80 MG 80 MG 80 MG Carvedilol Carvedilol No Carvedilol 25 MG 25 MG 25 MG Vitamin D3 Vitamin D3 No Vitamin D3 Triamterene Triamterene No 1{table QD Triamteren -HCTZ -HCTZ t_in_th e-HCTZ 37.5-25 MG 37.5-25 MG e_morni 37.5-25 MG ng} Triamterene Triamterene No 1{capsu QD Triamteren 50 MG 50 MG le} e 50 MG Diclofenac Diclofenac No TID Diclofenac Sodium 1 % Sodium 1 % Sodium 1 % Azithromyci Azithromyci No QD Azithromyc n 250 MG n 250 MG in 250 MG Magnesium Magnesium No Magnesium NovoLOG Mix NovoLOG Mix No NovoLOG 70/30 70/30 Mix 70/30 (70-30) 100 (70-30) 100 (70-30) UNIT/ML UNIT/ML 100 UNIT/ML Gabapentin Gabapentin No 1{capsu TID Gabapentin 300 MG 300 MG le} 300 MG Fosamax 70 Fosamax 70 No 1{table Fosamax 70 MG MG t} MG Levothyroxi Levothyroxi No QD Levothyrox ne Sodium ne Sodium ine Sodium 75 MCG 75 MCG 75 MCG Triamterene Triamterene No Triamteren -HCTZ -HCTZ e-HCTZ Gabapentin Gabapentin No Gabapentin 300 MG 300 MG 300 MG metFORMIN metFORMIN No 1{table BID metFORMIN HCl 1000 MG HCl 1000 MG t_with_ HCl 1000 a_meal} MG Pantoprazol Pantoprazol No 1{table QD Pantoprazo e Sodium 40 e Sodium 40 t} le Sodium MG MG 40 MG Ferrous Ferrous No 1{table QD Ferrous Sulfate 325 Sulfate 325 t} Sulfate (65 Fe) MG (65 Fe) MG 325 (65 Fe) MG Tylenol Tylenol No Tylenol Arthritis Arthritis Arthritis Pain Pain Pain Atorvastati Atorvastati No 1{table QD Atorvastat n Calcium n Calcium t} in Calcium 80 MG 80 MG 80 MG Carvedilol Carvedilol No Carvedilol 25 MG 25 MG 25 MG Vitamin D3 Vitamin D3 No Vitamin D3 Triamterene Triamterene No 1{table QD Triamteren -HCTZ -HCTZ t_in_th e-HCTZ 37.5-25 MG 37.5-25 MG e_morni 37.5-25 MG ng} Triamterene Triamterene No 1{capsu QD Triamteren 50 MG 50 MG le} e 50 MG Diclofenac Diclofenac No TID Diclofenac Sodium 1 % Sodium 1 % Sodium 1 % Azithromyci Azithromyci No QD Azithromyc n 250 MG n 250 MG in 250 MG Magnesium Magnesium No Magnesium NovoLOG Mix NovoLOG Mix No NovoLOG 70/30 70/30 Mix 70/30 (70-30) 100 (70-30) 100 (70-30) UNIT/ML UNIT/ML 100 UNIT/ML Gabapentin Gabapentin No 1{capsu TID Gabapentin 300 MG 300 MG le} 300 MG Fosamax 70 Fosamax 70 No 1{table Fosamax 70 MG MG t} MG Levothyroxi Levothyroxi No QD Levothyrox ne Sodium ne Sodium ine Sodium 75 MCG 75 MCG 75 MCG Triamterene Triamterene No Triamteren -HCTZ -HCTZ e-HCTZ Gabapentin Gabapentin No Gabapentin 300 MG 300 MG 300 MG metFORMIN metFORMIN No 1{table BID metFORMIN HCl 1000 MG HCl 1000 MG t_with_ HCl 1000 a_meal} MG Pantoprazol Pantoprazol No 1{table QD Pantoprazo e Sodium 40 e Sodium 40 t} le Sodium MG MG 40 MG Ferrous Ferrous No 1{table QD Ferrous Sulfate 325 Sulfate 325 t} Sulfate (65 Fe) MG (65 Fe) MG 325 (65 Fe) MG Tylenol Tylenol No Tylenol Arthritis Arthritis Arthritis Pain Pain Pain Atorvastati Atorvastati No 1{table QD Atorvastat n Calcium n Calcium t} in Calcium 80 MG 80 MG 80 MG Carvedilol Carvedilol No Carvedilol 25 MG 25 MG 25 MG Vitamin D3 Vitamin D3 No Vitamin D3 Triamterene Triamterene No 1{table QD Triamteren -HCTZ -HCTZ t_in_ e-HCTZ 37.5-25 MG 37.5-25 MG e_morni 37.5-25 MG ng} Triamterene Triamterene No 1{capsu QD Triamteren 50 MG 50 MG le} e 50 MG Diclofenac Diclofenac No TID Diclofenac Sodium 1 % Sodium 1 % Sodium 1 % Azithromyci Azithromyci No QD Azithromyc n 250 MG n 250 MG in 250 MG Magnesium Magnesium No Magnesium NovoLOG Mix NovoLOG Mix No NovoLOG 70/30 70/30 Mix 70/30 (70-30) 100 (70-30) 100 (70-30) UNIT/ML UNIT/ML 100 UNIT/ML Gabapentin Gabapentin No 1{capsu TID Gabapentin 300 MG 300 MG le} 300 MG Fosamax 70 Fosamax 70 No 1{table Fosamax 70 MG MG t} MG Levothyroxi Levothyroxi No QD Levothyrox ne Sodium ne Sodium ine Sodium 75 MCG 75 MCG 75 MCG Triamterene Triamterene No Triamteren -HCTZ -HCTZ e-HCTZ Carvedilol Carvedilol No Carvedilol 25 MG 25 MG 25 MG metFORMIN metFORMIN No 1{table BID metFORMIN HCl 1000 MG HCl 1000 MG t_with_ HCl 1000 a_meal} MG Ferrous Ferrous No 1{table QD Ferrous Sulfate 325 Sulfate 325 t} Sulfate (65 Fe) MG (65 Fe) MG 325 (65 Fe) MG Gabapentin Gabapentin No Gabapentin 300 MG 300 MG 300 MG Pantoprazol Pantoprazol No 1{table QD Pantoprazo e Sodium 40 e Sodium 40 t} le Sodium MG MG 40 MG Atorvastati Atorvastati No 1{table QD Atorvastat n Calcium n Calcium t} in Calcium 80 MG 80 MG 80 MG Azithromyci Azithromyci No QD Azithromyc n 250 MG n 250 MG in 250 MG Vitamin D3 Vitamin D3 No Vitamin D3 Triamterene Triamterene No 1{capsu QD Triamteren 50 MG 50 MG le} e 50 MG Diclofenac Diclofenac No TID Diclofenac Sodium 1 % Sodium 1 % Sodium 1 % Tylenol Tylenol No Tylenol Arthritis Arthritis Arthritis Pain Pain Pain Triamterene Triamterene No 1{table QD Triamteren -HCTZ -HCTZ t_in_th e-HCTZ 37.5-25 MG 37.5-25 MG e_morni 37.5-25 MG ng} Magnesium Magnesium No Magnesium Triamterene Triamterene No 1{table QD Triamteren -HCTZ -HCTZ t_in_th e-HCTZ 37.5-25 MG 37.5-25 MG e_morni 37.5-25 MG ng} Triamterene Triamterene No Triamteren -HCTZ -HCTZ e-HCTZ Gabapentin Gabapentin No 1{capsu TID Gabapentin 300 MG 300 MG le} 300 MG ZyrTEC ZyrTEC No 1{table QD ZyrTEC Allergy 10 Allergy 10 t} Allergy 10 MG MG MG Gabapentin Gabapentin No Gabapentin 300 MG 300 MG 300 MG Atorvastati Atorvastati No 1{table QD Atorvastat n Calcium n Calcium t} in Calcium 80 MG 80 MG 80 MG Triamterene Triamterene No 1{capsu QD Triamteren 50 MG 50 MG le} e 50 MG Diclofenac Diclofenac No TID Diclofenac Sodium 1 % Sodium 1 % Sodium 1 % Pantoprazol Pantoprazol No 1{table QD Pantoprazo e Sodium 40 e Sodium 40 t} le Sodium MG MG 40 MG Ferrous Ferrous No 1{table QD Ferrous Sulfate 325 Sulfate 325 t} Sulfate (65 Fe) MG (65 Fe) MG 325 (65 Fe) MG Magnesium Magnesium No Magnesium Carvedilol Carvedilol No 1{table BID Carvedilol 25 MG 25 MG t_with_ 25 MG food} Fosamax 70 Fosamax 70 No 1{table Fosamax 70 MG MG t} MG predniSONE predniSONE No QD predniSONE 20 MG 20 MG 20 MG Levothyroxi Levothyroxi No QD Levothyrox ne Sodium ne Sodium ine Sodium 75 MCG 75 MCG 75 MCG metFORMIN metFORMIN No 1{table BID metFORMIN HCl 1000 MG HCl 1000 MG t_with_ HCl 1000 a_meal} MG Vitamin D3 Vitamin D3 No Vitamin D3 Carvedilol Carvedilol No Carvedilol 25 MG 25 MG 25 MG Tylenol Tylenol No Tylenol Arthritis Arthritis Arthritis Pain Pain Pain Cipro 500 Cipro 500 No 1{table BID Cipro 500 MG MG t} MG Atorvastati Atorvastati No 1{table QD Atorvastat n Calcium n Calcium t} in Calcium 80 MG 80 MG 80 MG Triamterene Triamterene No 1{table QD Triamteren -HCTZ -HCTZ t_in_th e-HCTZ 37.5-25 MG 37.5-25 MG e_morni 37.5-25 MG ng} Diclofenac Diclofenac No TID Diclofenac Sodium 1 % Sodium 1 % Sodium 1 % hydroCHLORO hydroCHLORO No 1{table QD hydroCHLOR thiazide 25 thiazide 25 t_in_th Othiazide MG MG e_morni 25 MG ng} Gabapentin Gabapentin No 1{capsu TID Gabapentin 300 MG 300 MG le} 300 MG Triamterene Triamterene No 1{capsu QD Triamteren 50 MG 50 MG le} e 50 MG Pantoprazol Pantoprazol No 1{table QD Pantoprazo e Sodium 40 e Sodium 40 t} le Sodium MG MG 40 MG Ferrous Ferrous No 1{table QD Ferrous Sulfate 325 Sulfate 325 t} Sulfate (65 Fe) MG (65 Fe) MG 325 (65 Fe) MG Magnesium Magnesium No Magnesium Vitamin D3 Vitamin D3 No Vitamin D3 Carvedilol Carvedilol No 1{table BID Carvedilol 25 MG 25 MG t_with_ 25 MG food} Fosamax 70 Fosamax 70 No 1{table Fosamax 70 MG MG t} MG Tylenol Tylenol No Tylenol Arthritis Arthritis Arthritis Pain Pain Pain Gabapentin Gabapentin No Gabapentin 300 MG 300 MG 300 MG metFORMIN metFORMIN No 1{table BID metFORMIN HCl 500 MG HCl 500 MG t_with_ HCl 500 MG a_meal} Levothyroxi Levothyroxi No QD Levothyrox ne Sodium ne Sodium ine Sodium 75 MCG 75 MCG 75 MCG Carvedilol Carvedilol No Carvedilol 25 MG 25 MG 25 MG metFORMIN metFORMIN No 1{table BID metFORMIN HCl 1000 MG HCl 1000 MG t_with_ HCl 1000 a_meal} MG Triamterene Triamterene No Triamteren -HCTZ -HCTZ e-HCTZ Telmisartan Telmisartan No BID Telmisarta 80 MG 80 MG n 80 MG Gabapentin Gabapentin No 1{capsu TID Gabapentin 300 MG 300 MG le} 300 MG Atorvastati Atorvastati No 1{table QD Atorvastat n Calcium n Calcium t} in Calcium 80 MG 80 MG 80 MG Diclofenac Diclofenac No TID Diclofenac Sodium 1 % Sodium 1 % Sodium 1 % Fosamax 70 Fosamax 70 No 1{table Fosamax 70 MG MG t} MG Immunizations Ordered Filled Immunization Date Status Comments [facility] e Immunization Name Name Boostrix (Tdap) Boostrix (Tdap) 2022-01-23 Completed Comm on [facility] - 10:08:00 [facility] Boostrix (Tdap) Boostrix (Tdap) 2022-01-23 Completed Comm on [facility] - :08:00 [facility] Boostrix (Tdap) Boostrix (Tdap) 2022-01-23 Completed Comm on [facility] - :08:00 [facility] Boostrix (Tdap) Boostrix (Tdap) 2022-01-23 Completed Comm on [facility] - :08:00 [facility] Boostrix (Tdap) Boostrix (Tdap) 2022-01-23 Completed Comm on [facility] - 10:08:00 [facility] Boostrix (Tdap) Boostrix (Tdap) 2022-01-23 Completed Comm on [facility] - 10:08:00 [facility] Boostrix (Tdap) Boostrix (Tdap) 2022-01-23 Completed Comm on [facility] - 10:08:00 [facility] Boostrix (Tdap) Boostrix (Tdap) 2022-01-23 Completed Comm on [facility] - :08:00 [facility] Boostrix (Tdap) Boostrix (Tdap) 2022-01-23 Completed Comm on [facility] - 10:08:00 [facility] Boostrix (Tdap) Boostrix (Tdap) 2022-01-23 Completed Comm on [facility] - 10:08:00 [facility] Boostrix (Tdap) Boostrix (Tdap) 2022-01-23 Completed Comm on [facility] - :08:00 [facility] Boostrix (Tdap) Boostrix (Tdap) 2022-01-23 Completed Comm on [facility] - 10:08:00 [facility] Boostrix (Tdap) Boostrix (Tdap) 2022-01-23 [facility]:08:00 [facility] Boostrix (Tdap) Boostrix (Tdap) 2022-01-23 [facility] - 10:08:00 [facility] Boostrix (Tdap) Boostrix (Tdap) 2022-01-23 [facility] - 10:08:00 [facility] Euflexxa Euflexxa 2020-12-06 Completed [facility] - 11:18:00 [facility] Euflexxa Euflexxa 2020-12-06 Completed [facility] - 11:18:00 [facility] Euflexxa Euflexxa 2020-12-06 Completed [facility] - 11:17:00 [facility] Euflexxa Euflexxa 2020-12-06 Completed [facility] - 11:17:00 [facility] Euflexxa Euflexxa 2020-11-29 Completed [facility] - 11:22:00 [facility] Euflexxa Euflexxa 2020-11-29 Completed [facility] - 11:22:00 [facility] Euflexxa Euflexxa 2020-11-29 Completed [facility] - 11:21:00 [facility] Euflexxa Euflexxa 2020-11-29 Completed [facility] - 11:21:00 [facility] Euflexxa Euflexxa 2020-11-22 Completed [facility] - 13:42:00 [facility] Euflexxa Euflexxa 2020-11-22 Completed [facility] - 13:42:00 [facility] Euflexxa Euflexxa 2020-11-22 Completed [facility] - 13:42:00 [facility] Euflexxa Euflexxa 2020-11-22 Completed [facility] - 13:42:00 [facility] Euflexxa Euflexxa 2020-11-22 Completed [facility] - 13:42:00 [facility] Euflexxa Euflexxa 2020-11-22 Completed [facility] - 13:42:00 [facility] SARS-COV-2 COVID-19 2020-07-23 Completed [facility] PFIZER VACCINE 00:00:00 [facility] SARS-COV-2 COVID-19 2020-07-23 Completed [facility] PFIZER VACCINE 00:00:00 [facility] SARS-COV-2 COVID-19 2020-07-23 Completed [facility] PFIZER VACCINE 00:00:00 [facility] SARS-COV-2 COVID-19 2020-07-23 Completed [facility] PFIZER VACCINE 00:00:00 [facility] SARS-COV-2 COVID-19 2020-07-23 Completed [facility] PFIZER VACCINE 00:00:00 [facility] SARS-COV-2 COVID-19 2020-07-23 Completed [facility] PFIZER VACCINE 00:00:00 [facility] SARS-COV-2 COVID-19 2020-07-23 Completed [facility] PFIZER VACCINE 00:00:00 [facility] SARS-COV-2 COVID-19 2020-07-23 Completed [facility] PFIZER VACCINE 00:00:00 [facility] SARS-COV-2 COVID-19 2020-07-23 Completed [facility] PFIZER VACCINE 00:00:00 [facility] SARS-COV-2 COVID-19 2020-07-23 Completed [facility] PFIZER VACCINE 00:00:00 [facility] SARS-COV-2 COVID-19 2020-07-23 Completed [facility] PFIZER VACCINE 00:00:00 [facility] SARS-COV-2 COVID-19 2020-07-23 Completed [facility] PFIZER VACCINE 00:00:00 [facility] SARS-COV-2 COVID-19 2020-07-23 Completed [facility] PFIZER VACCINE 00:00:00 [facility] SARS-COV-2 COVID-19 2020-07-23 Completed [facility] PFIZER VACCINE 00:00:00 [facility] SARS-COV-2 COVID-19 2020-07-23 Completed [facility] PFIZER VACCINE 00:00:00 [facility] SARS-COV-2 COVID-19 2020-07-23 Completed [facility] PFIZER VACCINE 00:00:00 [facility] SARS-COV-2 COVID-19 2020-07-23 Completed [facility] PFIZER VACCINE 00:00:00 [facility] SARS-COV-2 COVID-19 2020-07-23 Completed [facility] PFIZER VACCINE 00:00:00 [facility] SARS-COV-2 COVID-19 2020-07-23 Completed [facility] PFIZER VACCINE 00:00:00 [facility] SARS-COV-2 COVID-19 2020-07-23 Completed [facility] PFIZER VACCINE 00:00:00 [facility] SARS-COV-2 COVID-19 2020-07-23 Completed [facility] PFIZER VACCINE 00:00:00 [facility] SARS-COV-2 COVID-19 2020-07-23 Completed [facility] PFIZER VACCINE 00:00:00 [facility] SARS-COV-2 COVID-19 2020-07-23 Completed [facility] PFIZER VACCINE 00:00:00 [facility] SARS-COV-2 COVID-19 2020-07-23 Completed [facility] PFIZER VACCINE 00:00:00 [facility] SARS-COV-2 COVID-19 2020-07-02 Completed [facility] PFIZER VACCINE 00:00:00 [facility] SARS-COV-2 COVID-19 2020-07-02 Completed [facility] PFIZER VACCINE 00:00:00 [facility] SARS-COV-2 COVID-19 2020-07-02 Completed [facility] PFIZER VACCINE 00:00:00 [facility] SARS-COV-2 COVID-19 2020-07-02 Completed [facility] PFIZER VACCINE 00:00:00 [facility] SARS-COV-2 COVID-19 2020-07-02 Completed [facility] PFIZER VACCINE 00:00:00 [facility] SARS-COV-2 COVID-19 2020-07-02 Completed [facility] PFIZER VACCINE 00:00:00 [facility] SARS-COV-2 COVID-19 2020-07-02 Completed [facility] PFIZER VACCINE 00:00:00 [facility] SARS-COV-2 COVID-19 2020-07-02 Completed [facility] PFIZER VACCINE 00:00:00 [facility] SARS-COV-2 COVID-19 2020-07-02 Completed [facility] PFIZER VACCINE 00:00:00 [facility] SARS-COV-2 COVID-19 2020-07-02 Completed [facility] PFIZER VACCINE 00:00:00 [facility] SARS-COV-2 COVID-19 2020-07-02 Completed [facility] PFIZER VACCINE 00:00:00 [facility] SARS-COV-2 COVID-19 2020-07-02 Completed [facility] PFIZER VACCINE 00:00:00 [facility] SARS-COV-2 COVID-19 2020-07-02 Completed [facility] PFIZER VACCINE 00:00:00 [facility] SARS-COV-2 COVID-19 2020-07-02 Completed [facility] PFIZER VACCINE 00:00:00 [facility] SARS-COV-2 COVID-19 2020-07-02 Completed [facility] PFIZER VACCINE 00:00:00 [facility] SARS-COV-2 COVID-19 2020-07-02 Completed [facility] PFIZER VACCINE 00:00:00 [facility] SARS-COV-2 COVID-19 2020-07-02 Completed [facility] PFIZER VACCINE 00:00:00 [facility] SARS-COV-2 COVID-19 2020-07-02 Completed [facility] PFIZER VACCINE 00:00:00 [facility] SARS-COV-2 COVID-19 2020-07-02 Completed [facility] PFIZER VACCINE 00:00:00 [facility] SARS-COV-2 COVID-19 2020-07-02 Completed [facility] PFIZER VACCINE 00:00:00 [facility] SARS-COV-2 COVID-19 2020-07-02 Completed [facility] PFIZER VACCINE 00:00:00 [facility] SARS-COV-2 COVID-19 2020-07-02 Completed [facility] PFIZER VACCINE 00:00:00 [facility] SARS-COV-2 COVID-19 2020-07-02 Completed [facility] PFIZER VACCINE 00:00:00 [facility] SARS-COV-2 COVID-19 2020-07-02 Completed [facility] PFIZER VACCINE 00:00:00 [facility] Afluria single dose Afluria single dose 2020-01-07 Completed [facility] - 16:46:00 [facility] Afluria single dose Afluria single dose 2020-01-07 Completed [facility] - 16:46:00 [facility] Afluria single dose Afluria single dose 2020-01-07 Completed [facility] - 16:46:00 [facility] Afluria single dose Afluria single dose 2020-01-07 Completed [facility] - 16:46:00 [facility] Afluria single dose Afluria single dose 2020-01-07 Completed [facility] - 16:46:00 [facility] Afluria single dose Afluria single dose 2020-01-07 Completed [facility] - 16:46:00 [facility] Afluria single dose Afluria single dose 2020-01-07 Completed [facility] - 16:46:00 [facility] Afluria single dose Afluria single dose 2020-01-07 Completed [facility] - 16:46:00 [facility] Afluria single dose Afluria single dose 2020-01-07 Completed [facility] - 16:46:00 [facility] Afluria single dose Afluria single dose 2020-01-07 Completed [facility] - 16:46:00 [facility] Afluria single dose Afluria single dose 2020-01-07 Completed [facility] - 16:46:00 [facility] Afluria single dose Afluria single dose 2020-01-07 Completed [facility] - 16:46:00 [facility] Afluria single dose Afluria single dose 2020-01-07 Completed [facility] - 16:46:00 [facility] Afluria single dose Afluria single dose 2020-01-07 Completed [facility] - 16:46:00 [facility] Afluria single dose Afluria single dose 2020-01-07 Completed [facility] - 16:46:00 [facility] Afluria single dose Afluria single dose 2020-01-07 Completed [facility] - 16:46:00 [facility] Afluria single dose Afluria single dose 2020-01-07 Completed [facility] - 16:46:00 [facility] Afluria single dose Afluria single dose 2020-01-07 Completed [facility] - 16:46:00 [facility] Afluria single dose Afluria single dose 2020-01-07 Completed [facility] - 16:46:00 [facility] Afluria single dose Afluria single dose 2020-01-07 Completed [facility] - 16:46:00 [facility] Afluria single dose Afluria single dose 2020-01-07 Completed [facility] - 16:46:00 [facility] Afluria single dose Afluria single dose 2020-01-07 Completed [facility] - 16:46:00 [facility] Afluria single dose Afluria single dose 2020-01-07 Completed [facility] - 16:46:00 [facility] Afluria single dose Afluria single dose 2020-01-07 Completed [facility] - 16:46:00 [facility] Afluria single dose Afluria single dose 2020-01-07 Completed [facility] - 16:46:00 [facility] Influenza Virus 2019-12-15 Completed [facility] [facility] Influenza Virus 2019-12-15 Completed Universit y of Vaccine 00:00:00 [facility] Influenza Virus 2019-12-15 Completed Universit y of Vaccine 00:00:00 [facility] Influenza Virus 2019-12-15 Completed Universit y of Vaccine 00:00:00 [facility] Influenza Virus 2019-12-15 Completed Universit y of Vaccine 00:00:00 [facility] Influenza Virus 2019-12-15 Completed Universit y of Vaccine 00:00:00 [facility] Influenza Virus 2019-12-15 Completed Universit y of Vaccine 00:00:00 [facility] Influenza Virus 2019-12-15 Completed Universit y of Vaccine 00:00:00 [facility] Influenza Virus 2019-12-15 Completed Universit y of Vaccine 00:00:00 [facility] Influenza Virus 2019-12-15 Completed Universit y of Vaccine 00:00:00 [facility] Influenza Virus 2019-12-15 Completed Universit y of Vaccine 00:00:00 [facility] Influenza Virus 2019-12-15 Completed Universit y of Vaccine 00:00:00 [facility] Influenza Virus 2019-12-15 Completed Universit y of Vaccine 00:00:00 [facility] Influenza Virus 2019-12-15 Completed Universit y of Vaccine 00:00:00 [facility] Influenza Virus 2019-12-15 Completed Universit y of Vaccine 00:00:00 [facility] Influenza Virus 2019-12-15 Completed Universit y of Vaccine 00:00:00 [facility] Influenza Virus 2019-12-15 Completed Universit y of Vaccine 00:00:00 [facility] Influenza Virus 2019-12-15 Completed Universit y of Vaccine 00:00:00 [facility] Influenza Virus 2019-12-15 Completed Universit y of Vaccine 00:00:00 [facility] Influenza Virus 2019-12-15 Completed Universit y of Vaccine 00:00:00 [facility] Influenza Virus 2019-12-15 Completed Universit y of Vaccine 00:00:00 [facility] Influenza Virus 2019-12-15 Completed Universit y of Vaccine 00:00:00 [facility] Influenza Virus 2019-12-15 Completed Universit y of Vaccine 00:00:00 [facility] Influenza Virus 2019-12-15 Completed Universit y of Vaccine 00:00:00 [facility] Kenalog Kenalog 2017-07-19 Completed [facility] (Triamcinolone[facility] (Triamcinolone) 13:08:00 [facility] Kenalog Kenalog 2017-07-19 Completed [facility] (Triamcinolone) (Triamcinolone) 13:08:00 [facility] Kenalog 2017-07-19 Completed [facility] - (Triamcinolone) (Triamcinolone) 13:08:00 [facility] 2017-07-19 Completed [facility] - (Triamcinolone) (Triamcinolone) 13:08:00 [facility] Kenalog 2017-07-19 Completed [facility] - (Triamcinolone) (Triamcinolone) 13:08:00 [facility] Vital Signs Vital Name Observation Time Observation Value Comments Source Systolic blood 2022-07-24 13:59:00 174 mm[Hg] Univer sity of pressure [facility] Diastolic blood 2022-07-24 13:59:00 130 mm[Hg] Unive rsity of pressure [facility] Heart rate 2022-07-24 13:59:00 58 /min [facility] Body height 2022-07-24 13:58:00 157.5 cm [facility] Body weight 2022-07-24 13:58:00 108.863 kg [facility] BMI 2022-07-24 13:58:00 43.90 kg/m2 [facility] Systolic blood 2022-05-25 14:51:00 130 mm[Hg] Univer [facility]ity of [facility] Diastolic blood 2022-05-25 14:51:00 82 mm[Hg] Unive rsity of [facility] Heart rate 2022-05-25 14:51:00 69 /min [facility] Body height 2022-05-25 14:51:00 157.5 cm [facility] Body weight 2022-05-25 14:51:00 108.863 kg [facility] BMI 2022-05-25 14:51:00 43.90 kg/m2 [facility] Oxygen saturation in 2022-05-25 14:51:00 98 /min University of Arterial blood by [facility] luis Pulse oximetry Branch Systolic blood 2022-04-27 14:49:00 176 mm[Hg] Univer sity of [facility] Diastolic blood 2022-04-27 14:49:00 88 mm[Hg] Unive rsity of pressure [facility] Heart rate 2022-04-27 14:49:00 64 /min [facility] Body height 2022-04-27 14:49:00 157.5 cm [facility] Body weight 2022-04-27 14:49:00 107.956 kg [facility] BMI 2022-04-27 14:49:00 43.53 kg/m2 [facility] Oxygen saturation in 2022-04-27 14:49:00 98 /min University of Arterial blood by [facility] luis Pulse oximetry Branch Systolic blood 2022-04-05 20:49:00 134 mm[Hg] Univer [facility]ity of [facility] Diastolic blood 2022-04-05 20:49:00 74 mm[Hg] Unive rsity of [facility] Heart rate 2022-04-05 20:49:00 63 /min Universi ty [facility] Body temperature 2022-04-05 20:49:00 36.17 [facility] 2022-04-05 20:49:00 16 /min [facility] Body height 2022-04-05 20:49:00 157.5 cm Universi ty of [facility] Body weight 2022-04-05 20:49:00 106.278 kg Universi ty [facility] BMI 2022-04-05 20:49:00 42.85 kg/m2 Universi [facility] Oxygen saturation in 2022-04-05 20:49:00 99 /min [facility] Arterial blood by [facility] Pulse oximetry Branch height 2022-04-03 10:20:00 65.00 [in_i] [facility] weight 2022-04-03 10:20:00 232.3 [lb_av] [facility] temperature 2022-04-03 10:20:00 96.6 [degF] [facility] bmi 2022-04-03 10:20:00 38.65 kg/m2 [facility] oximetry 2022-04-03 10:20:00 99 % [facility] respiratory rate 2022-04-03 10:20:00 18 /min Comm on [facility] blood pressure 2022-04-03 10:20:00 135 mm[Hg] Common [facility] - systolic [facility] blood pressure 2022-04-03 10:20:00 71 mm[Hg] Common [facility] - diastolic [facility] height 2022-03-05 16:30:00 65.00 [in_i] [facility] weight 2022-03-05 16:30:00 239 [lb_av] [facility] temperature 2022-03-05 16:30:00 98 [degF] [facility] bmi 2022-03-05 16:30:00 39.77 kg/m2 [facility] height 2022-02-15 10:00:00 65.00 [in_i] Common S pirit [facility] weight 2022-02-15 10:00:00 239 [lb_av] Common S pirit [facility] temperature 2022-02-15 10:00:00 97.4 [degF] Common S pirit [facility] bmi 2022-02-15 10:00:00 39.77 kg/m2 [facility]irit - [facility] blood pressure 2022-02-15 10:00:00 138 mm[Hg] [facility] - systolic [facility] blood pressure 2022-02-15 10:00:00 74 mm[Hg] [facility] - diastolic [facility] height 2022-01-23 09:40:00 65.00 [in_i] [facility] weight 2022-01-23 09:40:00 228.0 [lb_av] [facility] temperature 2022-01-23 09:40:00 97.3 [degF] Common S pirit [facility] bmi 2022-01-23 09:40:00 37.94 kg/m2 [facility] 2022-01-23 09:40:00 98 % [facility] respiratory rate 2022-01-23 09:40:00 18 /min Comm on Spirit [facility] blood pressure 2022-01-23 09:40:00 136 mm[Hg] [facility] - systolic [facility] blood pressure 2022-01-23 09:40:00 71 mm[Hg] [facility] - diastolic [facility] height 2021-10-24 08:50:00 65.00 [in_i] Common S [facility] weight 2021-10-24 08:50:00 218.4 [lb_av] [facility] temperature 2021-10-24 08:50:00 97.9 [degF] Common S pirit [facility] bmi 2021-10-24 08:50:00 36.34 kg/m2 [facility] oximetry 2021-10-24 08:50:00 97 % Common S [facility] respiratory rate 2021-10-24 08:50:00 18 /min Comm on [facility] blood pressure 2021-10-24 08:50:00 138 mm[Hg] Common [facility] - systolic [facility] blood pressure 2021-10-24 08:50:00 71 mm[Hg] Common [facility] - diastolic [facility] height 2021-09-07 16:20:00 65.00 [in_i] Common S [facility] weight 2021-09-07 16:20:00 209.0 [lb_av] [facility] temperature 2021-09-07 16:20:00 97.3 [degF] [facility] bmi 2021-09-07 16:20:00 34.78 kg/m2 [facility] oximetry 2021-09-07 16:20:00 95 % [facility] respiratory rate 2021-09-07 16:20:00 16 /min Comm on [facility] blood pressure 2021-09-07 16:20:00 148 mm[Hg] [facility] - systolic [facility] blood pressure 2021-09-07 16:20:00 74 mm[Hg] Common [facility] - diastolic [facility] height 2020-12-06 11:00:00 65.00 [in_i] Common S [facility] weight 2020-12-06 11:00:00 250 [lb_av] [facility] temperature 2020-12-06 11:00:00 97.3 [degF] [facility] bmi 2020-12-06 11:00:00 41.6 kg/m2 [facility] blood pressure 2020-12-06 11:00:00 146 mm[Hg] [facility] - systolic [facility] blood pressure 2020-12-06 11:00:00 86 mm[Hg] [facility] - diastolic [facility] height 2020-11-29 11:15:00 65.00 [in_i] Common [facility] weight 2020-11-29 11:15:00 250 [lb_av] Common [facility] bmi 2020-11-29 11:15:00 41.6 kg/m2 Common S pirit [facility] blood pressure 2020-11-29 11:15:00 142 mm[Hg] [facility] - systolic [facility] blood pressure 2020-11-29 11:15:00 84 mm[Hg] [facility] - diastolic [facility] height 2020-11-22 13:15:00 65.00 [in_i] [facility] weight 2020-11-22 13:15:00 250 [lb_av] Common [facility] temperature 2020-11-22 13:15:00 97.3 [degF] Common [facility] bmi 2020-11-22 13:15:00 41.6 kg/m2 Common [facility] blood pressure 2020-11-22 13:15:00 146 mm[Hg] [facility] - systolic [facility] blood pressure 2020-11-22 13:15:00 92 mm[Hg] [facility] - diastolic [facility] Systolic blood 2020-03-08 14:44:00 158 mm[Hg] Univer sity of [facility] Diastolic blood 2020-03-08 14:44:00 92 mm[Hg] Unive rsity of [facility] Heart rate 2020-03-08 14:41:00 65 /min [facility] Respiratory rate 2020-03-08 14:41:00 19 /min [facility] Body height 2020-03-08 14:41:00 160 cm [facility] Body weight 2020-03-08 14:41:00 130.5 kg [facility] BMI 2020-03-08 14:41:00 50.96 kg/m2 [facility] Oxygen saturation in 2020-03-08 14:41:00 100 /min University of Arterial blood by [facility] Pulse oximetry Branch Systolic blood 2020-03-08 14:44:00 158 mm[Hg] Univer sity of [facility] Diastolic blood 2020-03-08 14:44:00 92 mm[Hg] Unive rsity of pressure [facility] Heart rate 2020-03-08 14:41:00 65 /min [facility] Respiratory rate 2020-03-08 14:41:00 19 /min Univ [facility] Body height 2020-03-08 14:41:00 160 cm [facility] Body weight 2020-03-08 14:41:00 130.5 kg [facility] BMI 2020-03-08 14:41:00 50.96 kg/m2 [facility] Oxygen saturation in 2020-03-08 14:41:00 100 /min [facility] Arterial blood by [facility] Pulse oximetry Branch Systolic blood 2020-03-08 14:44:00 158 mm[Hg] Univer sity of [facility] Diastolic blood 2020-03-08 14:44:00 92 mm[Hg] Unive rsity of [facility] Heart rate 2020-03-08 14:41:00 65 /min [facility] Respiratory rate 2020-03-08 14:41:00 19 /min Univ ers[facility] Body height 2020-03-08 14:41:00 160 cm [facility] Body weight 2020-03-08 14:41:00 130.5 kg [facility] BMI 2020-03-08 14:41:00 50.96 kg/m2 [facility] Oxygen saturation in 2020-03-08 14:41:00 100 /min [facility] Arterial blood by [facility] Pulse oximetry Branch Procedures Procedure Date / Time Performed Performing Clinician Juan TILLMAN PATIENT FINANCIAL 2022-07-24 13:16:34 Doctor Unassigned, No [facility] POLICY Name [facility] MR BRAIN WO CONTRAST 2022-05-08 14:33:13 Anshu Aldrich [facility] NM MYOCARDIUM 2022-04-26 17:20:00 Milad, [facility] PERFUSION STRESS AND Medical Bra nch REST NUCLEAR STRESS TEST 2022-04-26 17:20:00 Milad, [facility] CARDIOLOGY (DO NOT Medical Branc h SCHED) NUCLEAR STRESS TEST 2022-04-26 17:20:00 Milad, [facility] CARDIOLOGY (DO NOT Medical Branc h SCHED) NM MYOCARDIUM 2022-04-26 17:20:00 Milad, [facility] PERFUSION STRESS AND Medical Bra nch REST NM MYOCARDIUM 2022-04-26 17:20:00 Milad, [facility] PERFUSION STRESS AND Medical Bra nch REST NUCLEAR STRESS TEST 2022-04-26 17:20:00 Milad, [facility] CARDIOLOGY (DO NOT Medical Branc h SCHED) NM MYOCARDIUM 2022-04-26 17:20:00 Milad, [facility] PERFUSION STRESS AND Medical Bra nch REST NUCLEAR STRESS TEST 2022-04-26 17:20:00 Milad, [facility] CARDIOLOGY (DO NOT Medical Branc h SCHED) ASSIGNMENT OF BENEFITS 2022-04-05 20:38:25 Doctor Unassigned, No [facility] Medical Branch EXTERNAL PROVIDER - 2021-07-05 05:01:00 Doctor Unassigned, No [facility] CARDIOLOGY Name Medical Branch Encounters Start End Encounter Admission Attending Care Care Encounter Source Date/Time Date/Time Type Type Clinicians Facility Department ID 2022-08-16 Outpatient Giles, STLMLC STLMLC [id number] Common 11:06:00 [facility] [address] [facility] 2022-08-01 Outpatient Giles, STLMLC STLMLC [id number] Common 14:40:00 Velvet [id number] [facility] 2022-07-12 Outpatient Giles, STLMLC STLMLC [id number] Common 11:17:00 Velvet [id number] [facility] 2022-04-05 Outpatient Giles, STLMLC STLMLC [id number] Common 09:12:00 [facility] [address] [facility] 2022-03-30 Outpatient Giles, STLMLC STLMLC [id number] Common 09:41:00 Velvet [facility] 2022-03-05 Outpatient Giles, STLMLC STLMLC [id number] Common 13:40:00 Velvet [facility] 2022-02-15 Outpatient Giles, STLMLC STLMLC [id number] Common 11:25:00 Velvet [facility] 2022-02-08 Outpatient Giles, STLMLC STLMLC [id number] Common 14:55:00 Velvet [facility] 2021-09-29 Outpatient Giles, STLMLC STLMLC [id number] Common 11:33:01 Velvet [facility] 2021-09-07 Outpatient STLMLC STLMLC [id number] Common 15:25:00 [facility] 2021-07-19 Outpatient STLMLC STLMLC [id number] Common 15:16:00 [facility] 2021-05-10 Outpatient Rangel, Na STLMLC STLMLC [id number] 2 Common 13:24:33 [id number] [facility] 2021-05-10 Outpatient Rangel, Na STLMLC STLMLC [id number] 2 Common 13:20:49 [id number] [facility] 2021-05-10 Outpatient Rangel, Na STLMLC STLMLC [id number] Common 13:15:07 [id number] [facility] 2021-05-10 Outpatient Rangel, Na STLMLC STLMLC [id number] Common 13:14:19 [id number] [facility] 2021-05-10 Outpatient Rangel, Na STLMLC STLMLC [id number] 2 Common 13:12:17 92697 [facility] 2021-05-10 Outpatient Rangel, Na STLMLC STLMLC [id number] Common 12:44:55 [id number] [facility] 2021-05-10 Outpatient Rangel, Na STLMLC STLMLC [id number] 2 Common 12:25:24 [id number] [facility] 2021-05-10 Outpatient Rangel, Na STLMLC STLMLC [id number] 2 Common 12:24:36 [id number] [facility] 2021-05-10 Outpatient Rangel, Na STLMLC STLMLC [id number] Common 12:19:42 [id number] [facility] 2021-05-10 Outpatient Rangel, Na STLMLC STLMLC [id number] 2 Common 11:57:44 [id number] [facility] 2021-05-10 Outpatient Rangel, Na STLMLC STLMLC [id number] Common 11:56:57 [id number] [facility] 2021-05-10 Outpatient Rangel, Na STLMLC STLMLC [id number] 2 Common 11:48:36 [id number] [facility] 2021-05-10 Outpatient Rangel, Na STLMLC STLMLC [id number] 2 Common 11:48:10 [id number] [facility] 2021-05-10 Outpatient Rangel, Na STLMLC STLMLC [id number] Common 11:27:53 [id number] [facility] 2021-05-10 Outpatient Rangel, Na STLMLC STLMLC [id number] Common 11:26:55 [id number] [facility] 2021-05-10 Outpatient Rangel, Na STLMLC STLMLC [id number] Common 11:26:46 [id number] [facility] 2021-05-10 Outpatient Rangel, Na STLMLC STLMLC [id number] 2 Common 11:17:22 [id number] [facility] 2021-05-10 Outpatient Rangel, Na STLMLC STLMLC [id number] Common 11:14:10 [id number] [facility] 2021-05-10 Outpatient Rangel, Na STLMLC STLMLC [id number] 2 Common 11:13:58 [id number] [facility] 2021-05-10 Outpatient Rangel, Na STLMLC STLC [id number] 2 Common 11:07:48 [id number] [facility] 2021-02-12 Emergency X [facility] MPU [id number] Univers 16:52:06 ity [facility] 2021-02-12 Inpatient U [facility] MP [id number] Univers [facility] 2023-01-25 Outpatient Talita BLANDON [facility] [id number] Univers 09:00:00 09:00:00 [facility] 2022-09-17 2022-09-17 Outpatient LUDMILA RIVERA [facility] [id number] Univers 11:30:00 11:30:00 LUDMILA DAVIES liborio [facility] 2022-08-20 2022-08-20 Outpatient LUDMILA RIVERA [facility] [id number] Univers 11:30:00 11:30:00 LUDMILA DAVIES [facility] 2022-07-24 2022-07-24 Outpatient Talita BLANDON [facility] [id number] Univers 09:00:00 09:26:37 [facility] 2022-07-24 2022-07-24 [facility] [id number] Univers 09:00:00 09:26:37 Visit Jazzy [facility] [id number] it y of [place] [id number] [place] as RACQUEL?BLEA [phone] Pa [address] MEDICAL OFFICE BUILDING 2022-07-24 2022-07-24 Orders Doctor ALKA [id number] Univers 00:00:00 00:00:00 Only Unassigned, HAYDEE [id number] ity of [place] [facility] [id number] [place] as [id number] [address] 2022-07-23 2022-07-23 Outpatient Talita BLANDON [facility] [id number] Univers 08:30:00 08:30:00 [facility] 2022-05-25 2022-05-25 [facility] [id number] Univers 09:00[facility]00 [facility]44[facility] 2022-05-25 [facility] [id number] Univers 09:00:00 09:44:29 Visit Jazzy [facility] [id number] it y of [place] [id number] [place] as RACQUEL?BLEA [id number] [address] OFFICE [facility] 2022-05-16 2022-05-16 (WEB) [facility] [id number] Co mmon 00:00:00 00:00:00 [facility] 2022-05-08 2022-05-08 Outpatient Talita MICHAELANSHU Fletcher [facility] [id number] Univers 07:44:21 23:59:00 MICHAEL ANSHU [facility] 2022-05-08 2022-05-08 [facility] [id number] Univers 07:44:21 23:59:00 Encounter Anshu Mccann [place] [id number] ity of [place] [id number] [place] [facility] [id number] [address] 2022-05-08 2022-05-08 Telephone [facility] [id number] Univers 00:00:00 00:00:00 Anshu [facility] [id number] ity of [place] [id number] [place] as RACQUEL?BLEA [id number] [address] OFFICE [facility] 2022-04-29 2022-04-29 (WEB) [facility] [id number] Co mmon 00:00:00 00:00:00 [facility] 2022-04-27 2022-04-27 Outpatient Talita MICHAEL, ANSHU [facility] [id number] Univers 08:40:00 09:25:01 ANSHU ALDRICH [facility] 2022-04-27 2022-04-27 Office Michael, [facility] [id number] Univers 08:40:00 09:25:01 Visit [facility] [id number] ity of [place] [id number] [place] as RACQUEL?BLEA [id number] Pa basil [address] MEDICAL OFFICE BUILDING 2022-04-26 2022-04-26 [facility] [id number] Univers 07:32:06 23:59:00 Encounter Mckenna [place] [id number] [id number] [facility] [id number] [address] 2022-04-26 2022-04-26 [facility] [id number] Univers 07:31:45 07:31:45 Encounter Mckenna [place] [id number] it[id number] [id number] [address] 2022-04-26 2022-04-26 [facility] [id number] Univers 07:30:41 07:30:41 Encounter Mckenna [place] [id number] [id number] [id number] [address] 2022-04-26 2022-04-26 Outpatient R [facility] [id number] Univers 07:30:19 07:30:19 MCKENNA ity o f [facility] 2022-04-26 2022-04-26 [facility] [id number] Univers 07:30:19 07:30:19 Encounter Mckenna [place] [id number] it[id number] [id number] [address] 2022-04-26 2022-04-26 (TEL) STLMLC STLMLC [id number] Co mmon 00:00:00 00:00:00 [facility] 2022-04-172022-04-17 Outpatient R [facility] [id number] Univers 00:00:00 00:00:00 MCKENNA zafar [facility] 2022-04-10 2022-04-10 Telephone [facility] [id number] Univers 00:00:00 00:00:00 Mckenna KISHORDENIS [id number] [id number] [id number] [address] 2022-04-05 2022-04-05 Outpatient R [facility] [id number] Univers 15:00:00 15:14:22 MCKENNA sirisha sterling andrade [facility] 2022-04-05 2022-04-05 Office [facility] 1.2.840.114 [id number] Univers 15:00:00 15:14:22 Visit Mckenna SANCHEZ [id number] it[place] of [id number] [phone] Pa dical [facility] 2022-04-05 2022-04-05 Orders Doctor ALKA 1.2.840.114 [id number] Univers 00:00:00 00:00:00 Only Unassigned, HAYDEE [id number] ity of [place] [facility] [id number] [place] as [phone] [address] 2022-04-03 2022-04-03 OFFICE STLMLC STLMLC [id number] Co mmon 00:00:00 00:00:00 VISIT Spirit ESTAB PT - CHI LEVEL 4 [facility] 2022-03-29 2022-03-29 (TEL) STLMLC STLMLC [id number] Co mmon 00:00:00 00:00:00 Spirit - [facility] 2022-03-12 2022-03-12 (WEB) STLMLC STLMLC [id number] Co mmon 00:00:00 00:00:00 [facility] - [facility] 2022-03-06 2022-03-06 (TEL) STLMLC STLMLC [id number] Co mmon 00:00:00 00:00:00 [facility] 2022-03-05 2022-03-05 (TEL) STLMLC STLMLC [id number] Co mmon 00:00:00 00:00:00 [facility] 2022-03-05 2022-03-05 OFFICE STLMLC STLMLC [id number] Co mmon 00:00:00 00:00:00 VISIT EST Spir it PT LEVEL 3 [facility] 2022-02-19 2022-02-19 (TEL) STLMLC STLMLC [id number] Co mmon 00:00:00 00:00:00 [facility] 2022-02-15 2022-02-15 OFFICE STLMLC STLMLC [id number] Co mmon 00:00:00 00:00:00 VISIT NEW Spir it PT LEVEL 4 [facility] 2022-02-05 2022-02-05 (TEL) STLMLC STLMLC [id number] Co mmon 00:00:00 00:00:00 [facility] 2022-01-29 2022-01-29 (TEL) STLMLC STLMLC [id number] Co mmon 00:00:00 00:00:00 [facility] 2022-01-29 2022-01-29 (TEL) STLMLC STLMLC [id number] Co mmon 00:00:00 00:00:00 [facility] 2022-01-23 2022-01-23 (WELLNESS) STLMLC STLMLC [id number] Common 00:00:00 00:00:00 Wellness Spiri t Visit [facility] 2021-11-02 2021-11-02 (TEL) STLMLC STLMLC [id number] Co mmon 00:00:00 00:00:00 [facility] 2021-10-24 2021-10-24 OFFICE STLMLC STLMLC [id number] Co mmon 00:00:00 00:00:00 VISIT [facility] ESTAB PT [facility] LEVEL 4 [facility] 2021-10-23 2021-10-23 PRIMO Llamas 1.2.840.114 [id number] Univers 00:00:00 00:00:00 Mckenna SANCHEZ [id number] ity of [place] [place] [facility] [id number] [phone] Pa dical NAL 059 [facility] 2021-09-25 2021-09-25 [facility] 1.2.840.114 [id number] Univers 00:00:00 00:00:00 Mckenna SANCHEZ [id number] ity of [place] [facility] [id number] [phone] Pa dic[address] 2021-09-07 2021-09-07 OFFICE [facility] STLC [id number] Co mmon 00:00:00 00:00:00 VISIT [facility] LEVEL 5 [facility] 2021-08-22 2021-08-22 (TEL) [facility] [id number] Co mmon 00:00:00 00:00:00 [facility] 2021-07-19 2021-07-19 (TEL) [facility] STLC [id number] Co mmon 00:00:00 00:00:00 [facility] 2021-07-05 2021-07-05 Orders Doctor ALKA 1.2.840.114 [id number] Univers 00:00:00 00:00:00 Only Unassigned, HAYDEE [id number] ity of [place] [facility] [id number] [place] as [phone] [address] 2021-06-29 2021-06-29 Telephone [facility] 1.2.784.601 [id number] Univers 00:00:00 00:00:00 Mckenna SANCHEZ [id number] ity of [place] [facility] [id number] [phone] Pa dical NAL 059 [facility] 2021-05-02 2021-05-02 [facility] 1.2.840.114 [id number] Univers 00:00:00 00:00:00 Mckenna SANCHEZ [id number] ity of [id number] [phone] Pa basil THAKUR [address] [place] [address] 2021-03-24 2021-03-24 [facility] 1.2.840.114 [id number] Univers 00:00:00 00:00:00 Mckenna SANCHEZ [id number] ity of [place] [phone] Pa perez[address] 2021-02-16 2021-02-16 Outpatient R JU [facility] [id number] Univers 09:15:00 10:07:28 [facility] 2021-02-16 2021-02-16 [facility] 1.2.840.114 [id number] [facility] 08:51:31 10:07:28 Visit Mariam SPECIALTY [id number] ity of [id number] JOFFRE AT [phone] Pa basil [address] 2021-01-23 2021-01-23 [facility] 1.2.840.114 [id number] Univers 00:00:00 00:00:00 Mckenna Sanchez [id number] [place]y of [id number] Profess[place] [phone] Pa perez[address] 2020-12-22 2020-12-22 [facility] 1.2.840.114 [id number] Univers 09:20:57 23:59:00 Encounter [facility] [id number] ity of [id number] [place] [facility] [phone] [address] ([facility]) 2020-12-22 2020-12-22 Outpatient R JU [facility] [id number] Univers 09:30:00 09:30:00 MARIAM ity [facility] 2020-12-22 2020-12-22 [facility] 1.2.840.114 [id number] Univers 09:12:07 09:19:00 Encounter [facility] [id number] ity of [place] 4.2.7.2.686 [facility] [phone] [address] ([facility]) 2020-12-06 2020-12-06 (IN/ASP) STLMLC STLMLC [id number] C ommon 00:00:00 00:00:00 INJ ASP Spirit [facility] 2020-11-29 2020-11-29 (IN/ASP) STLMLC STLMLC [id number] C ommon 00:00:00 00:00:00 INJ ASP [facility] 2020-11-22 2020-11-22 (IN/ASP) STLMLC STLMLC [id number] C ommon 00:00:00 00:00:00 INJ ASP [facility] 2020-11-17 2020-11-17 [facility] 1.2.840.114 [id number] [facility] 09:39:53 12:17:48 Visit [facility] [id number] ity of [facility] 4.2.7.2.686 [facility] AT [phone] Pa basil LINTON [address] [place] [address] 2020-11-17 2020-11-17 Outpatient R JU [facility] [id number] Univers 11:30:00 11:30:00 MARIAM [facility] 2020-11-11 2020-11-11 (TEL) STLMLC STLMLC [id number] Co mmon 00:00:00 00:00:00 [facility] 2020-11-04 2020-11-04 Outpatient R VALERIA MORGAN [facility] [id number] Univers 14:15:00 14:15:00 FREDRICK [facility] 2020-11-02 2020-11-02 (TEL) STLMLC STLMLC [id number] Co mmon 00:00:00 00:00:00 [facility] 2020-10-24 2020-10-24 Outpatient STLMLC STLMLC [id number] Common 00:00:00 00:00:00 [facility] 2020-09-27 2020-09-27 Outpatient STLMLC STLMLC [id number] Common 00:00:00 00:00:00 [facility] 2020-09-26 2020-09-26 Outpatient STLMLC STLMLC [id number] Common 00:00:00 00:00:00 [facility] 2020-09-20 2020-09-20 Outpatient STLMLC STLMLC [id number] Common 00:00:00 00:00:00 [facility] 2020-09-19 2020-09-19 Outpatient STLMLC STLMLC [id number] Common 00:00:00 00:00:00 [facility] 2020-08-30 2020-08-30 Outpatient STLMLC STLMLC [id number] Common 00:00:00 00:00:00 [facility] 2020-08-30 2020-08-30 Orders Doctor ALKA 1.2.840.114 [id number] Univers 00:00:00 00:00:00 Only Unassigned, HAYDEE [id number] ity of [place] [facility] [id number] [place] as [phone] [facility] [address] 2020-08-19 2020-08-19 Transition Lauren Garcia 1.2.840.114 [id number] Univers 00:00:00 00:00:00 of Care Ce L Tripp 350.1.13.10 i ty [place] [phone] [facility] [address] 2020-08-16 2020-08-18 Hospital Dirk Mcleod 1.2.840.1 [id number] Univers 01:14:00 17:19:00 Encounter Calixto Snydery 350.1.1 3.10 ity of [facility] 4.2.7.2.686 [place] as [phone] [place] [address] [address] 2020-08-16 2020-08-18 Inpatient Ara SNYDER, [facility] SAN[facility]O [id number] Univers 01:14:00 17:19:00 CALIXTO [facility] 2020-08-18 2020-08-18 Outpatient STLMLC STLMLC [id number] Common 00:00:00 00:00:00 [facility] 2020-07-23 2020-07-23 Outpatient [facility] [id number] Univers 15:40:00 15:40:00 [facility] 2020-07-02 2020-07-02 Outpatient R GASTON, [facility] [id number] Univers 15:35:00 15:35:00 DWIGHT [facility] 2020-05-20 2020-05-20 Outpatient STLMLC STLMLC [id number] Common 00:00:00 00:00:00 [facility] 2020-05-11 2020-05-11 Outpatient STLMLC STLMLC [id number] Common 00:00:00 00:00:00 [facility] 2020-04-27 2020-04-27 Outpatient STLMLC STLMLC [id number] Common 00:00:00 00:00:00 [facility] 2020-04-25 2020-04-25 Outpatient STLMLC STLMLC [id number] Common 00:00:00 00:00:00 [facility] 2020-03-16 2020-03-16 Outpatient STLMLC STLMLC [id number] Common 00:00:00 00:00:00 [facility] 2020-03-08 2020-03-08 Beam Press Operator 2, Adc Lab [facility] 1.2.840.114 [id number] 09:14:19 09:29:19 Visit Francisco 350.1.13.10 [place] 4.2.7.2.686 [place] [phone] [address] 2020-03-08 2020-03-08 Beam Press Operator 2, Adc Lab [facility] 1.2.840.114 [id number] [facility] 09:14:19 09:29:19 Visit Mckenna Young 350.1.13.10 it[place] of [place] [phone] Pa dical nal 353 [facility] 2020-03-08 2020-03-08 Office [facility] 1.2.840.114 [id number] Univers 08:40:00 09:05:28 Visit Cassiussergjuan WE[place] 350.1.13.10 ity of [place] [phone] Pa dical NAL [address] [place] [address] 2020-03-08 2020-03-08 Outpatient R [facility] [id number] [facility] 08:40:00 09:05:28 MCKENNA grimm o f [facility] 2020-03-08 2020-03-08 Office [facility] 1.2.840.114 [id number] 08:21:54 09:05:28 Visit Jonjuan [place] 350.1.13.10 [place] 4.2.7.2.686 Professio [phone] [address] 2020-03-08 2020-03-08 Office [facility] 1.2.840.114 [id number] Univers 08:21:54 09:05:28 Visit Mckenna [place] 350.1.13.10 ity of [place] [phone] Pa dical nal [address] [place] [address] 2020-03-08 2020-03-08 Outpatient R [facility], [facility] [id number] Univers 08:40:00 08:40:00 MCKENNA matty o f [facility] 2020-03-08 2020-03-08 Telephone [facility] 1.2.016.518 [id number] 00:00:00 00:00:00 Mckenna [place] 350.1.13.10 [place] 4.2.7.2.686 Professio [phone] [address] 2020-03-08 2020-03-08 Telephone [facility] 1.2.567.324 [id number] Univers 00:00:00 00:00:00 Mckenna [place]ton 350.1.13.10 ity of [place] [phone] Pa dicak nal [address] [place] [address] 2020-02-09 2020-02-09 Telephone [facility] 1.2.624.617 [id number] Univers 00:00:00 00:00:00 Mckenna Lopes 350.1.13.10 i ty of [place]2.[place] F[place] [phone] [address] Office [facility] 2020-02-08 2020-02-08 Beam Press Operator Pc, Adc Vascular Room 1 [facility] 1.2.840.114 [id number] Univers 13:47:33 14:47:33 Visit Arsenio Murillo 350.1.13. 10 it[place] of [place]2.[place] [phone] [address] 2020-02-08 2020-02-08 Outpatient R [facility] [id number] Univers 14:00:00 14:00:00 ity of [facility] 2020-02-04 2020-02-04 Laboratory Pc, Adc Echo Room 1 [facility] 1 .2.840.114 [id number] Univers 13:47:04 14:33:48 Only Mckenna Young 350.1.13.10 ity of [place] [phone] [address] 2020-02-04 2020-02-04 Office [facility] 1.2.840.114 [id number] Univers 10:28:15 11:33:38 Visit Mckenna Sanchez 350.1.13.10 ity of [place]2.[place] [phone] [address] 2020-02-04 2020-02-04 Outpatient R [facility] [id number] Univers 10:40:00 10:40:00 MCKENNA grimm o f [facility] 2020-02-04 2020-02-04 Orders Doctor RUCKER 1.2.840.114 [id number] Univers 00:00:00 00:00:00 Only Unassigned, HAYDEE 350.1.13.10 ity of [place] [facility] 4.2.7.2.686 [place] as [phone] [facility] [address] 2020-01-13 2020-01-13 Outpatient STLMLC STLMLC [id number] Common 00:00:00 00:00:00 [facility] 2020-01-11 2020-01-11 Outpatient STLMLC STLMLC [id number] Common 00:00:00 00:00:00 [facility] 2020-01-07 2020-01-07 Outpatient STLMLC STLMLC [id number] Common 00:00:00 00:00:00 [facility] 2019-07-21 2019-07-21 Out[facility] [id number] Common 13:39:00 13:39:[address] [facility] 2019-07-06 2019-07-06 [facility] [id number] Common 16:55:00 16:55:[address] [facility] 2019-06-30 2019-06-30 [facility] [id number] Common 09:00:00 09:00:[address] [facility] 2019-03-02 2019-03-02 Out[facility] [id number] Common 08:40:00 08:40:[address] [facility] 2018-11-28 2018-11-28 Out[facility] [id number] Common 09:20:00 09:20:[address] [facility] 2018-06-03 2018-06-03 [facility] [id number] Common 08:15:00 08:15:[address] [facility] 2018-05-14 2018-05-14 [facility] [id number] Common 12:12:00 12:12:[address] [facility] 2018-03-03 2018-03-03 Out[facility] [id number] Common 08:15:00 08:15:[address] [facility] 2018-01-27 2018-01-27 [facility] [id number] Common 15:00:00 15:00:[address] [facility] 2018-01-14 2018-01-14 [facility] [id number] Common 16:30:00 16:30:[address] [facility] 2017-12-06 2017-12-06 Outpatient [facility] [id number] Memoria 14:15:00 14:15:00 02 dottie Key 2017-12-06 2017-12-06 Outpatient [facility] [id number] Memoria 14:15:00 14:15:00 02 [place]ie [place] 2017-10-25 2017-10-25 Outpatient [facility]IE [facility] [id number] Memoria 10:45:00 10:45:00 01 dottie Key 2017-10-25 2017-10-25 Outpatient [facility]IE [facility]IE [id number] Memoria 10:45:00 10:45:00 01 dottie Key 2017-09-20 2017-09-20 Outpatient MHIE MHIE [id number] Memoria 13:30:00 13:30:00 00 dottie Key 2017-09-20 2017-09-20 Outpatient MHIE MHIE [id number] Memoria 13:30:00 13:30:00 00 dottie Key 2017-09-05 2017-09-05 [facility] [id number] Common 14:30:00 14:30:[address] [facility] 2017-08-08 2017-08-08 [facility] [id number] Common 13:45:00 13:45:[address] [facility] 2017-08-06 2017-08-06 [facility] [id number] Common 16:14:00 16:14:[address] [facility] 2017-07-19 2017-07-19 Out[facility] [id number] Common 11:30:00 11:30:00 t Visual Pro 360 Spir it SozializeMe [facility] Results Test Description Test Time Test Comments Results Result Comments Source SAMMI (ANTI-NUCLEAR AB) WITH REFLEX TITER 2021-05-23 10:12:33 Test Item Value Reference Range Interpretation Comme nts ANTI-NUCLEAR ANTIBODIES (test NEGATIVE NEGATIVE Methodology is Indirect code = 3506) Immunofluoresce nt Assay (IFA) with a titering syst em using [id number] cells (Hep2 mary ls transfected with SS-A/Ro). SEDIMENTATION [id number] 06:37:58 Test Item Value Reference Range Interpretation Comments SEDIMENTATION RATE (test code = 16 MM/HOUR 0-20 1017) HIGH SENSITIVITY [id number] 06:08:01 Test Item Value Reference Range Interpretation Comments HIGH SENSITIVITY CRP 3.3 MG/L SEE BELOW H hsCRP LEVEL RELATIVE (test code = 89473) RISK <1. 0 MG/L LOW 1.0-3.0 MG/L AV ERAGE >3.0 MG/L HIGH (from Rea, T.A. e t al. Circulation 200 3; 107:499) RHEUMATOID FACTOR, [id number] 06:08:01 Test Item Value Reference Range Interpretation Comments RHEUMATOID FACTOR, <10 IU/ML <14 UNLESS OTHERWISE QUANT (test code = INDICATED , ALL TESTING 3501) PERFORMED [facility] [employer] [address] [place] [address] 4 LABORATORY DIRE CTOR: JUAN ANTONIO HUITRON M.D. CLIA NUMBER [id number] [facility] [place]. [id number] VITAMIN D, 25 [id number] 05:44:45 Test Item Value Reference Range Interpretation Comments VITAMIN D, 25 OH 45 NG/ML SEE BELOW NOTE: 25-H YDROXYVITAMIN D (test code = 4958) [employer] LUDES 25-HYDROXYVITAM IN D2 AND D3. METHODOLOGY IS CHEMILUMINESCEN T IMMUNOASSAY. INTERPRETIVE RA NGES PEDIATRIC (<17 YEARS) . . . . . . . . . . . NG/ML 20-100ADULT: IN SUFFICIENT . . . . . . . . . . . . . . NG/ML <20 SUBOP TIMAL . . . . . . . . . . . . . . . NG/ML 20-29 OPT IMAL . . . . . . . . . . . . . . . . . NG/ML 30-100 FOLATE, [id number] 11:08:53 Test Item Value Reference Range Interpretation Comments HEMATOCRIT (test TEST NOT 34.0-45.0 Unable to p erform code = 1004) PERFORMED % testing due to specimen hemolysis.Charg es adjusted as applicable. FOLATE, RBC (test TEST NOT 499-1504 INT ERPRETIVE code = 2690) PERFORMED NG/ML RANGES DEFICIENCY . . . . . . . . . . . . . . . NG/ML <=150 POS SIBLE DEFICIENCY. . . . . . . . . . . NG/ ML 151-498 SUFFICI ENT . . . . . . . . . . . . . . . NG/ML 499-1504 EXCESS . . . . . . . . . . . . . . . . . NG/ML >1504 UNLESS OTHERWISE INDIC ATED, ALL TESTING PERFORMED [facility], [facility]. [address] [place] [id number] [place] [address] SRINIVASA DIRECTOR: Soniya FRANCISIA NUMBER [id number] [place] [id number] 06:15:03 Test Item Value Reference Range Interpretation Comments FERRITIN (test code = 2075) 17 NG/ML 13-200 VITAMIN B 12 AND FOLIC [id number] 06:15:03 Test Item Value Reference Range Interpretation Comments VITAMIN B-12 (test 393 PG/ML 200-950 code = 2840) FOLIC ACID (test 13.8 UG/L SEE BELOW INTE RPRETIVE code = 2695) RANGES DE FICIENCY . . . . . . . . . . . . . . . UG/L <4.0 POSSIBLE DEFICIENCY. . . . . . . . . . . UG/L 4. 0-5.9 SUFFICIENT . . . . . . . . . . . . . . . UG/L >=6.0 [id number] 03:27:14 Test Item Value Reference Range Interpretation Comments TRANSFERRIN (test code = 4936) 344 MG/DL 200-360 IRON BINDING CAPACITY AND IRON AND % [id number] 03:17:30 Test Item Value Reference Range Interpretation Comments IRON, SERUM (test code = 2222) 38 UG/DL 37-145 UNSATURATED IBC (test code = 51704) 359 UG/DL 112-347 H CALC TOTAL IBC (test code = 2077) 397 UG/DL 250-450 CALC % IRON SAT (test code = 2079) 10 % 20-50 L
[2022-08-27] MEDS ORDERED: HYDROCODONE/APAP 5/325 MG TAB ONE (12:21)
--- NOTE | 2022-08-27 12:57 | RAD REPORT ---
EXAM DESCRIPTION: RAD - Knee Right 3 View - 08/27/2022 12:45 pm CLINICAL HISTORY: PAIN Fall, pain COMPARISON: Knee Right 2 View dated 10/01/2016 FINDINGS: Right total knee arthroplasty is noted. No hardware complication seen such as loosening or infection. No fracture, dislocation or significant joint effusion.
--- NOTE | 2022-08-27 13:21 | ER ---
Nurse's Notes [facility] Name: Kayla Bermudez Age: 61 yrs Sex: Female : 1960 Arrival Date: 08/27/2022 Time: 11:39 Bed IW2 Private MD: Rojelio Giles Diagnosis: Pain in right knee;Fall on same level, unspecified Presentation: 08/27 12:09 Chief complaint: Patient states: Fall while on PT for right knee replacement done about nj1 a month ago. CO right knee pain. Coronavirus screen: Vaccine status: Patient reports receiving the 2nd dose of the covid vaccine. Ebola Screen: Patient denies travel to an Ebola-affected area in the 21 days before illness onset. Initial Sepsis Screen: Does the patient meet any 2 criteria? No. Patient's initial sepsis screen is negative. Does the patient have a suspected source of infection? No. Patient's initial sepsis screen is negative. Risk Assessment: Do you want to hurt yourself or someone else? Patient reports no desire to harm self or others. Onset of symptoms was August 27, 2022. 12:09 Method Of Arrival: Ambulatory nj1 12:09 Acuity: ENRRIQUE 3 nj1 Historical: - Allergies: 12:11 pantoprazole; nj1 - PMHx: 12:11 High Cholesterol; Hypertension; Hypothyroidism; Diabetes mellitus; nj1 - PSHx: 12:11 Right knee replacement; nj1 12:12 Cholecystectomy; Hysterectomy; nj1 - Immunization history:: Client reports receiving the 2nd dose of the Covid vaccine. - Social history:: Smoking status: Patient denies any tobacco usage or history of. Vital Signs: 12:09 Pulse 61; Resp 18; Temp 98.2; Pulse Ox 100% ; Weight 108.86 kg; Height 5 ft. 2 in. ; nj1 Pain 10/10; 12:09 Body Mass Index 43.90 (108.86 kg, 157.48 cm) nj1 12:09 Pain Scale: Adult nj1 ED Course: 11:43 Patient arrived in ED. mr 11:43 Rojelio Giles DO is Private Physician. mr 11:45 Toni Adams DO is Attending Physician. ms3 12:11 Triage completed. nj1 12:13 Arm band placed on right wrist. nj1 12:47 Knee Right 3 View XRAY In Process Unspecified. EDMS 13:19 Rojelio Giles DO is Referral Physician. ms3 13:19 Jerson Wiley MD is Referral Physician. ms3 14:04 Samara Ho, RN is Primary Nurse. iw Administered Medications: 12:15 Drug: HYDROcodone-acetaminophen PO 5 mg-325 mg 1 tabs Route: PO; nj1 12:30 Follow up: Response: No adverse reaction; Pain is decreased iw Outcome: 13:20 Discharge ordered by . ms3 14:28 Patient left the ED. iw Signatures: Dispatcher [employer] EDME Donta Haven mr Samara Ho, RN RN iw Toni Adams DO DO ms3 Mihaela Stallings RN RN nj1
--- NOTE | 2022-08-27 13:21 | EDPHYS ---
Physician Documentation [facility] Name: Kayla Bermudez Age: 61 yrs Sex: Female : 1960 Arrival Date: 08/27/2022 Time: 11:39 Bed IW2 Private MD: Chan Pending Sale To [facility] ED Physician Toni Adams HPI: 08/27 11:55 This 61 yrs old Female presents to ER via Unassigned with complaints of Fall ms3 Injury, Knee Injury. 11:55 61-year-old female with past medical history of diabetes, hypertension, hyperlipidemia, ms3 obesity, hypothyroidism, fibromyalgia, rheumatoid arthritis, osteoporosis presents 1/2-hour status post fall while at physical therapy. Patient had recent right knee replacement. Patient denies alleviating factors. Patient states pain is worse with movement.. Historical: - Allergies: 12:11 pantoprazole; nj1 - PMHx: 12:11 High Cholesterol; Hypertension; Hypothyroidism; Diabetes mellitus; nj1 - PSHx: 12:11 Right knee replacement; nj1 12:12 Cholecystectomy; Hysterectomy; nj1 - Immunization history:: Client reports receiving the 2nd dose of the Covid vaccine. - Social history:: Smoking status: Patient denies any tobacco usage or history of. ROS: 11:55 Constitutional: Negative for fever, and chills. Neck: Negative for injury, pain, and ms3 swelling, Cardiovascular: Negative for chest pain, and palpitations. Respiratory: Negative for shortness of breath, cough, wheezing, and pleuritic chest pain, Abdomen/GI: Negative for abdominal pain, nausea, vomiting, diarrhea, and constipation. 11:55 MS/extremity: Positive for pain, of the Right knee. Exam: 11:55 Constitutional: This is a well developed, well nourished patient who is awake, alert, ms3 and in no acute distress. Head/Face: Normocephalic, atraumatic. Neck: Trachea midline, no cervical lymphadenopathy. Supple, full range of motion without nuchal rigidity, or vertebral point tenderness. No Meningismus. Chest/axilla: Normal chest wall appearance and motion. Nontender with no deformity. Cardiovascular: Regular rate and rhythm with a normal S1 and S2. No gallops, murmurs, or rubs. Normal PMI, no JVD. No pulse deficits. Respiratory: Lungs have equal breath sounds bilaterally, clear to auscultation and percussion. No rales, rhonchi or wheezes noted. No increased work of breathing, no retractions or nasal flaring. Abdomen/GI: Soft, non-tender, with normal bowel sounds. No distension or tympany. No guarding or rebound. No evidence of tenderness throughout. Neuro: Awake and alert, GCS 15, oriented to person, place, time, and situation. Cranial nerves II-XII grossly intact. Motor strength 5/5 in all extremities. Sensory grossly intact. Cerebellar exam normal. Normal gait. 11:55 Musculoskeletal/extremity: Extremities: noted in the Right knee: pain, swelling, tenderness, Incision without dehiscence, drainage, erythema. Vital Signs: 12:09 Pulse 61; Resp 18; Temp 98.2; Pulse Ox 100% ; Weight 108.86 kg; Height 5 ft. 2 in. ; nj1 Pain 10/10; 12:09 Body Mass Index 43.90 (108.86 kg, 157.48 cm) nj1 12:09 Pain Scale: Adult nj1 MDM: 11:54 Patient medically screened. ms3 11:56 Differential diagnosis: contusion, fracture, sprain, strain. ms3 13:20 Data reviewed: vital signs, nurses notes, radiologic studies, and as a result, I will ms3 discharge patient. I considered the following discharge prescriptions or medication management in the emergency department Medications were administered in the Emergency Department. See MAR. Independent interpretation of the following test(s) in the Emergency Department X-Ray: My interpretation is Right knee x-ray images reviewed: No fracture. Counseling: I had a detailed discussion with the patient and/or guardian regarding: the historical points, exam findings, and any diagnostic results supporting the discharge/admit diagnosis, radiology results, the need for outpatient follow up, to return to the emergency department if symptoms worsen or persist or if there are any questions or concerns that arise at home. Response to treatment: the patient's symptoms have mildly improved after treatment, and as a result, I will discharge patient. Special discussion: I discussed with the patient/guardian in detail that at this point there is no indication for admission to the hospital. It is understood, however, that if the symptoms persist or worsen the patient needs to return immediately for re-evaluation. 08/27 11:54 Order name: Knee Right 3 View XRAY; Complete Time: 13:07 ms3 Administered Medications: 12:15 Drug: HYDROcodone-acetaminophen PO 5 mg-325 mg 1 tabs Route: PO; nj1 12:30 Follow up: Response: No adverse reaction; Pain is decreased iw Disposition Summary: 08/27/22 13:20 Discharge Ordered Location: Home ms3 Condition: Stable ms3 Diagnosis - Pain in right knee ms3 - Fall on same level, unspecified ms3 Followup: ms3 - With: Rojelio Giles DO - When: 2 - 3 days - Reason: Recheck today's complaints Followup: ms3 - With: Jerson Wiley MD - When: 2 - 3 days - Reason: Recheck today's complaints Discharge Instructions: - Discharge Summary Sheet ms3 - Acute Knee Pain, Adult ms3 Forms: - Medication Reconciliation Form ms3 - Thank You Letter ms3 - Antibiotic Education ms3 - Prescription Opioid Use ms3 Signatures: Dispatcher [employer] EDToni Lopez DO DO ms3 Mihaela Stallings RN RN nj1 Samara Ho RN iw
[2022-08-27 14:37] VITALS: TEMP 98.2; O2SAT 100
== END 2022-08-27 14:28 | disposition home or self-care (01) ==
LOC: ER 11:39
DX: M25.561 Pain in right knee (principal); W18.30XA Fall on same level, unspecified, initial encounter; Y93.B9 Activity, other involving muscle strengthening exercises; Y92.89 Other specified places as the place of occurrence of the external cause; Z96.651 Presence of right artificial knee joint; I10 Essential (primary) hypertension; E11.9 Type 2 diabetes mellitus without complications; E03.9 Hypothyroidism, unspecified; E78.00 Pure hypercholesterolemia, unspecified